=== PATIENT | male | born 1965 | race African-American/Black ===

== ENCOUNTER 2021-09-19 08:13 | Inpatient (IN) | payer MEDICARE ==
[~2021-09-19] VITALS: Ht 172.7 cm; Wt 136.7 kg
[2021-09-19] MEDS ORDERED: ONDANSETRON PF 4 MG/2 ML VIAL. IVP ONE (09:00)
[2021-09-19] MEDS ORDERED: KETOROLAC 15 MG/ML VIAL. IVP ONE (09:00)
--- NOTE | 2021-09-19 09:05 | ED.ADGEN ---
Past Medical History Past Surgical History: Cholecystectomy, Other Additional Past Surgical Histo: ULCER SURG,LOWER INTESTINE REMOVED Smoking Status: Current Every Day Smoker Additional Information: 1 PPD Alcohol Use: Occasionally General Adult EDM: Chief Complaint: ABDOMINAL PAIN HPI: HPI: Patient is a 56 year old male coming in for abdominal pain. Patient states the pain is crampy and comes and goes but starts in his upper abdomen and radiates down both sides. Patient states he has not had a bowel movement for the past 2 days has not been passing flatus. Has had some nausea but no vomiting. Patient feels like the pain was worse this morning and his abdomen is more distended. P hien's last p.o. intake was 4 hours ago when he took mag citrate. Has not had a bowel movement since. Patient has a history of multiple abdominal surgeries but is a poor historian as to what the surgeries were for. Patient states he had some "stones in his intestines" and possible ulcer that required surgical repair. Patient is has HIV, is a type II diabetic and has hypertension Review of Systems: Review of Systems: All other systems within normal limits except for as noted in the HPI Allergies: Allergies: Allergies Coded Allergies Type Severity Reaction Last Updated Verified metformin Allergy Intermediate UNKNOWN 09/19/21 Yes Physical Exam: PE: Constitutional: Well developed, well nourished, no acute distress, non-toxic appearance. [] HENT: Normocephalic, atraumatic, bilateral external ears normal, nose normal. [] Eyes: PERRLA, conjunctiva normal, no discharge. [] Neck: No rigidity, supple, no stridor. [] Cardiovascular: Regular rate and rhythm, brisk cap refill [] Lungs & Thorax: Non labored symmetric respirations, no tachypnea or respiratory distress [] Abdomen: Soft, mildly distended, generalized tenderness without guarding. Large ventral surgical scar intact, no palpable hernias. Skin: Warm, dry, no erythema, no rash. [] Back: Unremarkable Extremities: No deformities, range of motion grossly intact, no lower extremity edema [] Neurologic: Alert and oriented X 3, no focal deficits noted. [] Psychologic: Affect normal, judgement normal, mood normal. [] Current Patient Data: Vital Signs: Vital Signs Date Time Temp Pulse Resp B/P (MAP) Pulse Ox O2 Delivery O2 Flow Rate FiO2 1/23/22 08:16 97.8 68 20 170/105 (126) 95 Room Air 97.8 EKG: EKG: [] Heart Score: C/O Chest Pain: No Risk Factors: Risk Factors: DM, Current or recent (<one month) smoker, HTN, HLP, family history of CAD, obesity. Risk Scores: Score 0 - 3: 2.5% MACE over next 6 weeks - Discharge Home Score 4 - 6: 20.3% MACE over next 6 weeks - Admit for Clinical Observation Score 7 - 10: 72.7% MACE over next 6 weeks - Early Invasive Strategies Radiology/Procedures: Radiology/Procedures: [] Course & Med Decision Making: Course & Med Decision Making Pertinent Labs and Imaging studies reviewed. (See chart for details) [] Dragon Disclaimer: Dragon Disclaimer: This electronic medical record was generated, in whole or in part, using a voice recognition dictation system. Departure Departure Referrals: NO PCP (PCP) KARLOS KHAN MD Sep 19, 2021 09:05
[2021-09-19 09:41] LABS: AMORPHOUS SEDIMENT,UR PRESENT /HPF; BILIRUBIN,URINE SMALL (NEG); CLARITY,URINE TURBID; COLOR,URINE AMBER; NITRITE,URINE NEGATIVE (NEG); PH,URINE 5.5 (<5.0-8.0); PROTEIN,URINE 30 mg/dL (NEG-TRACE)
[2021-09-19 09:50] LABS: BASO # 0.1 x10^3/uL (0.0-0.2); BASO % 1 % (0-3); EOS # 0.2 x10^3/uL (0.0-0.7); EOS % 2 % (0-3); HEMATOCRIT 45.5 % (39.0-53.0); HEMOGLOBIN 14.6 g/dL (13.0-17.5); LYMPH # 2.3 x10^3/uL (1.0-4.8); LYMPH % 21 % (24-48); MEAN CORPUSCULAR HEMOGLOBIN 29 pg (25-35); MEAN CORPUSCULAR HGB CONC 32 g/dL (31-37); MEAN CORPUSCULAR VOLUME 89 fL (79-100); MONO # 0.6 x10^3/uL (0.0-1.1); MONO % 6 % (0-9); NEUT # 7.7 x10^3/uL (1.8-7.7); NEUT % 71 % (31-73); PLATELET COUNT 366 x10^3/uL (140-400); WHITE BLOOD COUNT 10.9 x10^3/uL (4.0-11.0)
[2021-09-19 09:55] LABS: GRANULAR CASTS,URINE OCCASIONAL /HPF; HYALINE CASTS, URINE OCCASIONAL /HPF
[2021-09-19 09:56] LABS: BACTERIA,URINE 0 /HPF (0-FEW); WBC,URINE OCC /HPF (0-4)
[2021-09-19 09:59] LABS: CALCIUM 8.4 mg/dL (8.5-10.1); CREATININE 0.9 mg/dL (0.7-1.3); GFR 104.9; POTASSIUM 3.8 mmol/L (3.5-5.1)
[2021-09-19 10:04] LABS: ALBUMIN 3.4 g/dL (3.4-5.0); MAGNESIUM 2.8 mg/dL (1.8-2.4); PHOSPHORUS 3.6 mg/dL (2.6-4.7); TOTAL BILIRUBIN 0.7 mg/dL (0.2-1.0); TOTAL PROTEIN 6.9 g/dL (6.4-8.2)
[2021-09-19] MEDS ORDERED: CONTRAST GIVEN. MC PRN (10:15)
[2021-09-19] MEDS ORDERED: IOHEXOL 300 MG/ML 100ML VIAL. IV ONE (10:15)
--- NOTE | 2021-09-19 11:07 | RAD ---
CT ABDOMEN+PELVIS W History: Adomen pain x couple of days, distention Comparison: None. Technique: After administration of intravenous contrast, helical CT of the abdomen and pelvis was per formed from the lung bases through the ischial tuberosities. Coronal and sagittal reconstructions wer e obtained. 75 mL of Omnipaque 300 were used. One or more of the following dose reduction techniques were utilized: Automated exposure control (AEC), Adjustment of mA and/or kV according to patient size , Use of iterative reconstruction technique such as ASiR, CT scan done according to ALARA and image g ently/image wisely Abdomen Findings: The visualized lung bases are clear. The liver, gallbladder, pancreas, spleen, and left adrenal gland are normal. Indeterminate right adre nal 2.4 cm lesion. Symmetric renal enhancement. There is no focal renal mass. There is no hydronephrosis. Postsurgical changes at the gastroesophageal junction The visualized loops of small bowel are normal. Focal area of mild colonic wall thickening at the spleen flexure. Colon proximal to this segment is well distended with gas and feculent material. Colon distal to this segment is decompressed. There is no free fluid. There is no mesenteric or retroperitoneal adenopathy. The abdominal aorta is normal in caliber. Pelvis Findings: Urinary bladder is normal. No pelvic free fluid. There is no pelvic or inguinal adenopathy. There is no acute bony abnormality. No aggressive lytic or blastic osseous lesions. IMPRESSION: 1. Focal colonic wall thickening at the splenic flexure, with dilated colon proximal to this segment and decompressed colon distally. It would be difficult to exclude an annular constricting lesion, and direct visualization is recommended. 2. Indeterminate right adrenal 2.4 cm lesion. This could be further characterized with multiphasic ad renal protocol CT or MRI. 3. No abdominal lymphadenopathy. Electronically signed by: Robin Elizondo MD (09/19/2021 11:04 AM) [id number]
[2021-09-19] MEDS ORDERED: IV NORMAL SALINE 1000ML BAG 1,000 ML IV ONE (11:15)
[2021-09-19] MEDS ORDERED: MORPHINE SULFATE 4 MG/ML INJ. IV ONE (11:15)
[2021-09-19 12:23] VITALS: BP 119/56
[2021-09-19] MEDS ORDERED: MORPHINE SULFATE 4 MG/ML INJ. IVP PRN (12:30)
[2021-09-19] MEDS ORDERED: ONDANSETRON PF 4 MG/2 ML VIAL. IVP PRN (12:30)
[2021-09-19] MEDS ORDERED: IV NORMAL SALINE 1000ML BAG 1,000 ML IV SCH (12:30)
--- NOTE | 2021-09-19 18:31 | NUR ---
Pt left AMA, never arrived to the floor
[2021-10-04] MEDS ORDERED: PANT40TA77 PO (12:07)
[2021-10-04] MEDS ORDERED: OXYC1TAB15 PO (12:07)
== END 2021-09-19 18:32 | disposition left against medical advice (07) | DRG 392 ==
LOC: ER 08:13 → 4 NORTH 11:00
PROVIDERS: ADMIT Internal Medicine; ATTEND Internal Medicine
DX: R10.9 Unspecified abdominal pain (principal); E11.9 Type 2 diabetes mellitus without complications; I10 Essential (primary) hypertension; Z21 Asymptomatic human immunodeficiency virus [HIV] infection status; Z87.891 Personal history of nicotine dependence; Z20.822 Contact with and (suspected) exposure to COVID-19; Z88.8 Allergy status to other drugs, medicaments and biological substances; Z53.29 Procedure and treatment not carried out because of patient's decision for other reasons
CPT/HCPCS: 36415; 74177; 80053; 81001; 83605; 83690; 83735; 84100; 85025; 87426; 96361; 96374; 96375; J1885; J2270; J2405; J7030; Q9967; U0003; U0005; 99285-25; G0378

== ENCOUNTER 2021-09-24 17:41 | Inpatient (IN) | payer MEDICARE ==
[~2021-09-24] VITALS: Ht 175.3 cm; Wt 147.4 kg
--- NOTE | 2021-09-24 18:16 | PHYS DOC ---
Past Medical History Past Medical History: Diabetes-Type I, HIV, Hypertension, P.U.D. Past Surgical History: Cholecystectomy, Other Additional Past Surgical Histo: ULCER SURG,LOWER INTESTINE REMOVED Smoking Status: Current Every Day Smoker Alcohol Use: Occasionally Drug Use: None General Adult EDM: Chief Complaint: ABDOMINAL PAIN HPI: HPI: Patient is a 56-year-old male that presents today with abdominal pain. Patient states he was here on September 19, 2021 and was evaluated for this abdominal pain, he states that he was instructed and advised to be admitted to the hospital for further evaluation of this abdominal pain due to a bowel obstruction, he elected to leave the hospital AGAINST MEDICAL ADVICE, he states that he drove to [place] where he was seen by his primary care doctor's office formerly [facility] and they admitted him to the hospital for 2 days they did an enema he states he did have some results from that enema, he states he drove back down here and he is continuing to have abdominal pain. He states that he did try to give himself an enema today he said he got no results he states he has not had a real bowel movement since the other day when he had his enema. Patient denies chest pain, shortness of air, or fever. Patient states his blood sugars today have been in the 100s to 105 range. Review of Systems: Review of Systems: Constitutional: Denies fever or chills. [] Eyes: Denies change in visual acuity. [] HENT: Denies nasal congestion or sore throat. [] Respiratory: Denies cough or shortness of breath. [] Cardiovascular: Denies chest pain or edema. [] GI: Abdominal pain, nausea, no vomiting, diarrhea denies bloody stools [] : Denies dysuria. [] Musculoskeletal: Denies back pain or joint pain. [] Integument: Denies rash. [] Neurologic: Denies headache, focal weakness or sensory changes. [] Endocrine: Denies polyuria or polydipsia. [] Lymphatic: Denies swollen glands. [] Psychiatric: Denies depression or anxiety. [] Heart Score: C/O Chest Pain: N/A Risk Factors: Risk Factors: DM, Current or recent (<one month) smoker, HTN, HLP, family history of CAD, obesity. Risk Scores: Score 0 - 3: 2.5% MACE over next 6 weeks - Discharge Home Score 4 - 6: 20.3% MACE over next 6 weeks - Admit for Clinical Observation Score 7 - 10: 72.7% MACE over next 6 weeks - Early Invasive Strategies Allergies: Allergies: Allergies Coded Allergies Type Severity Reaction Last Updated Verified metformin Allergy Intermediate UNKNOWN 09/19/21 Yes Physical Exam: PE: Constitutional: Well developed, well nourished, no acute distress, non-toxic appearance. [] HENT: Normocephalic, atraumatic, bilateral external ears normal, oropharynx moist, no oral exudates, nose normal. [] Eyes: PERRLA, EOMI, conjunctiva normal, no discharge. [] Neck: Normal range of motion, no tenderness, supple, no stridor. [] Cardiovascular:Heart rate regular rhythm, no murmur, peripheral pulses 2+ in all four extremities Lungs & Thorax: Bilateral breath sounds diminished breath sounds Abdomen: Abdomen is distended and large, hypoactive bowel sounds noted diffuse abdominal pain, no pulsatile masses noted Skin: Warm, dry, no erythema, no rash. [] Back: No tenderness, no CVA tenderness. [] Extremities: No tenderness, no cyanosis, no clubbing, ROM intact, 1+ edema bilateral lower extreme lower extremities Neurologic: Alert and oriented X 3, normal motor function, normal sensory function, no focal deficits noted. [] Psychologic: Affect normal, judgement normal, mood normal. [] Current Patient Data: Labs: Laboratory Tests Test 09/24/21 17:57 09/24/21 18:34 Urine Collection Type Void Urine Color Yellow Urine Clarity Hazy Urine pH 6.0 Urine Specific [place] >=1.030 Urine Protein 100 mg/dL Urine Glucose (UA) Negative mg/dL Urine Ketones (Stick) Negative mg/dL Urine Blood Moderate Urine Nitrite Negative Urine Bilirubin Small Urine Urobilinogen Dipstick 1.0 mg/dL Urine Leukocyte Esterase Negative Urine RBC 11-20 /HPF Urine WBC 1-4 /HPF Urine Squamous Epithelial Cells Many /LPF Urine Bacteria Few /HPF Urine Mucus Marked /LPF White Blood Count 15.3 x10^3/uL Red Blood Count 5.65 x10^6/uL Hemoglobin 16.2 g/dL Hematocrit 49.8 % Mean Corpuscular Volume 88 fL Mean Corpuscular Hemoglobin 29 pg Mean Corpuscular Hemoglobin Concent 33 g/dL Red Cell Distribution Width 14.4 % Platelet Count 441 x10^3/uL Neutrophils (%) (Auto) 79 % Lymphocytes (%) (Auto) 13 % Monocytes (%) (Auto) 6 % Eosinophils (%) (Auto) 2 % Basophils (%) (Auto) 1 % Neutrophils # (Auto) 12.1 x10^3/uL Lymphocytes # (Auto) 2.0 x10^3/uL Monocytes # (Auto) 0.9 x10^3/uL Eosinophils # (Auto) 0.3 x10^3/uL Basophils # (Auto) 0.1 x10^3/uL Sodium Level 141 mmol/L Potassium Level 4.1 mmol/L Chloride Level 104 mmol/L Carbon Dioxide Level 24 mmol/L Anion Gap 13 Blood Urea Nitrogen 21 mg/dL Creatinine 1.0 mg/dL Estimated GFR (Cockcroft-Gault) 92.9 BUN/Creatinine Ratio 21 Glucose Level 131 mg/dL Lactic Acid Level 1.2 mmol/L Calcium Level 9.5 mg/dL Total Bilirubin 0.8 mg/dL Aspartate Amino Transf (AST/SGOT) 45 U/L Alanine Aminotransferase (ALT/SGPT) 103 U/L Alkaline Phosphatase 125 U/L Total Protein 8.1 g/dL Albumin 4.1 g/dL Albumin/Globulin Ratio 1.0 Current Medications Medications (Trade) Dose Ordered Sig/Edith Route PRN Reason Start Time Stop Time Status Last Admin Dose Admin Sodium Chloride 1,000 ml @ 999 mls/hr 1X ONCE IV 09/24/21 18:45 09/24/21 19:45 09/24/21 19:02 Iohexol (Omnipaque 300 Mg/ml) 100 ml 1X ONCE IV 09/24/21 19:15 09/24/21 19:18 DC Info (CONTRAST GIVEN -- Rx MONITORING) 1 each PRN DAILY PRN MC SEE COMMENTS 09/24/21 19:30 09/26/21 19:29 Metoclopramide HCl (Reglan Vial) 10 mg 1X ONCE IVP 09/24/21 19:30 09/24/21 19:31 UNV Morphine Sulfate (Morphine Sulfate) 4 mg 1X ONCE IVP 09/24/21 19:30 09/24/21 19:31 UNV 09/24/21 19:35 Vital Signs: Vital Signs Date Time Temp Pulse Resp B/P (MAP) Pulse Ox O2 Delivery O2 Flow Rate FiO2 09/24/21 19:35 18 95 Room Air 09/24/21 19:04 98 21 190/78 (115) 92 Room Air 09/24/21 18:35 93 18 173/112 (132) 94 Room Air 09/24/21 17:51 97.9 104 18 173/112 (132) 96 Room Air 97.9 Vital Signs Date Time Temp Pulse Resp B/P (MAP) Pulse Ox O2 Delivery O2 Flow Rate FiO2 09/24/21 17:51 97.9 104 18 173/112 (132) 96 Room Air 97.9 EKG: EKG: [] Radiology/Procedures: Radiology/Procedures: REASON: abdominal pain, OMNI 300 75 ML IV PROCEDURE: CT ABD PELV W/ IV CONTRST ONLY Exam: CT of abdomen and pelvis with contrast INDICATION: Abdominal pain TECHNIQUE: Sequential axial images through the abdomen and pelvis obtained following the administration of 75 mL of Isovue-370 IV contrast. Sagittal and coronal reformatted images were reconstructed from the axial data and reviewed. Exposure: One or more of the following in the visualized dose reduction techniques were utilized for this examination: 1. Automated exposure control 2. Adjustment of the MA and/or KV according to patient size 3. Use of iterative of reconstructive technique Comparisons: 09/19/2021 FINDINGS: Heart size is normal. No pericardial effusion. Strandy opacities the dependent portion lungs likely representing atelectasis. No pleural effusion. Liver, spleen, and pancreas are unremarkable. Gallbladder is partially distended. Stable right adrenal gland nodule. No perinephric inflammation or hydronephrosis. No renal or ureteral calculi are identified. Bladder is partially distended and not well evaluated. Prostate is not enlarged. There is a short segment of wall thickening at the splenic flexure of the colon. The more proximal colon is dilated and fluid-filled. Small bowel is unremarkable. No free intra-abdominal air or fluid. Abdominal aorta has a normal course and caliber. Abdominal vasculature is patent. No enlarged intra-abdominal lymph nodes are identified. No suspicious osseous lesions or acute fractures. IMPRESSION: Redemonstration of focal wall thickening at the splenic flexure concerning for an obstructing lesion. There is progressive dilatation of the more proximal colon. As before direct visualization is recommended to exclude/confirm neoplasm. Electronically signed by: Landen Graham MD (09/24/2021 8:01 PM) [facility][] Course & Med Decision Making: Course & Med Decision Making Pertinent Labs and Imaging studies reviewed. (See chart for details) 2014 reviewed radiological and laboratory results with Dr. Pettit did feel this patient does meet criteria for admitting due to the extent of his bowel obstruction and the patient's does have an elevated WBCs, did contact Dr. Kasper he is agreeable to admitting this patient with consult in the a.m. for surgery and gastrointestinal. Did talk to patient about the laboratory and radiological findings he is agreeable to admitting at this time. Patient was informed at this time we do not know what is causing the obstruction there is a mass in his colon and that at this time we do not know what that is and he will need to follow with surgery and GI for further management of this. He verbalizes understanding of this. Dragon Disclaimer: Dragon Disclaimer: This electronic medical record was generated, in whole or in part, using a voice recognition dictation system. Departure Departure Impression: Primary Impression: Bowel obstruction Qualified Codes: K56.609 - Unspecified intestinal obstruction, unspecified as to partial versus complete obstruction Disposition: ADMITTED INPATIENT Admitting Physician: DARRION Condition: STABLE Referrals: ANDRES SHAH MD (PCP) GERSON ARTEAGA APRN Sep 24, 2021 18:16
[2021-09-24 18:26] LABS: BILIRUBIN,URINE SMALL (NEG); CLARITY,URINE HAZY; COLOR,URINE YELLOW
[2021-09-24 18:28] LABS: NITRITE,URINE NEGATIVE (NEG); PROTEIN,URINE 100 mg/dL (NEG-TRACE)
[2021-09-24] MEDS ORDERED: IV NORMAL SALINE 1000ML BAG 1,000 ML IV ONE (18:45)
[2021-09-24 18:47] LABS: BASO # 0.1 x10^3/uL (0.0-0.2); BASO % 1 % (0-3); EOS # 0.3 x10^3/uL (0.0-0.7); EOS % 2 % (0-3); HEMATOCRIT 49.8 % (39.0-53.0); HEMOGLOBIN 16.2 g/dL (13.0-17.5); LYMPH % 13 % (24-48); MEAN CORPUSCULAR HEMOGLOBIN 29 pg (25-35); MEAN CORPUSCULAR HGB CONC 33 g/dL (31-37); MEAN CORPUSCULAR VOLUME 88 fL (79-100); MONO # 0.9 x10^3/uL (0.0-1.1); MONO % 6 % (0-9); NEUT # 12.1 x10^3/uL (1.8-7.7); NEUT % 79 % (31-73); PLATELET COUNT 441 x10^3/uL (140-400); RED BLOOD COUNT 5.65 x10^6/uL (4.30-5.70); RED CELL DISTRIBUTION WIDTH 14.4 % (11.5-14.5); WHITE BLOOD COUNT 15.3 x10^3/uL (4.0-11.0)
[2021-09-24 18:47] LABS: BACTERIA,URINE FEW /HPF (0-FEW)
[2021-09-24 19:00] LABS: CALCIUM 9.5 mg/dL (8.5-10.1); GFR 92.9; POTASSIUM 4.1 mmol/L (3.5-5.1)
[2021-09-24 19:14] LABS: ALBUMIN 4.1 g/dL (3.4-5.0); TOTAL BILIRUBIN 0.8 mg/dL (0.2-1.0); TOTAL PROTEIN 8.1 g/dL (6.4-8.2)
[2021-09-24] MEDS ORDERED: IOHEXOL 300 MG/ML 100ML VIAL. IV ONE (19:15)
--- NOTE | 2021-09-24 19:24 | RAD ---
Exam: Abdomen one view INDICATION: Abdominal pain TECHNIQUE: Supine view the abdomen Comparisons: CT 09/19/2021 FINDINGS: Air and stool are noted throughout the colon to level the rectum in a nonobstructive bowel gas patter n. No suspicious masses or calcifications. Visual is osseous structures are unremarkable. IMPRESSION: Nonobstructive bowel gas pattern. Electronically signed by: Landen Graham MD (09/24/2021 7:22 PM) SARAH
[2021-09-24] MEDS ORDERED: CONTRAST GIVEN. MC PRN (19:30)
[2021-09-24] MEDS ORDERED: METOCLOPRAMIDE HCL 10 MG/2 ML VIAL. IVP ONE (19:30)
[2021-09-24] MEDS ORDERED: MORPHINE SULFATE 4 MG/ML INJ. IVP ONE (19:30)
--- NOTE | 2021-09-24 20:03 | RAD ---
Exam: CT of abdomen and pelvis with contrast INDICATION: Abdominal pain TECHNIQUE: Sequential axial images through the abdomen and pelvis obtained following the administrati on of 75 mL of Isovue-370 IV contrast. Sagittal and coronal reformatted images were reconstructed fro m the axial data and reviewed. Exposure: One or more of the following in the visualized dose reduction techniques were utilized for this examination: 1. Automated exposure control 2. Adjustment of the MA and/or KV according to patient size 3. Use of iterative of reconstructive technique Comparisons: 09/19/2021 FINDINGS: Heart size is normal. No pericardial effusion. Strandy opacities the dependent portion lungs likely r epresenting atelectasis. No pleural effusion. Liver, spleen, and pancreas are unremarkable. Gallbladder is partially distended. Stable right adrena l gland nodule. No perinephric inflammation or hydronephrosis. No renal or ureteral calculi are identified. Bladder is partially distended and not well evaluated. Prostate is not enlarged. There is a short segment of wall thickening at the splenic flexure of the colon. The more proximal co norm is dilated and fluid-filled. Small bowel is unremarkable. No free intra-abdominal air or fluid. Abdominal aorta has a normal course and caliber. Abdominal vasculature is patent. No enlarged intra-abdominal lymph nodes are identified. No suspicious osseous lesions or acute fractures. IMPRESSION: Redemonstration of focal wall thickening at the splenic flexure concerning for an obstructing lesion. There is progressive dilatation of the more proximal colon. As before direct visualization is recomm ended to exclude/confirm neoplasm. Electronically signed by: Landen Graham MD (09/24/2021 8:01 PM) JP
[2021-09-24] MEDS ORDERED: cefTRIAXone IV Push 1 GM VIAL. IVP ONE (20:30)
[2021-09-24] MEDS ORDERED: ONDANSETRON PF 4 MG/2 ML VIAL. IVP PRN (20:30)
[2021-09-24] MEDS: IV NORMAL SALINE 1000ML BAG 1,000 ML IV SCH (22:02)
[2021-09-24] MEDS: MORPHINE SULFATE 4 MG/ML INJ. IVP PRN (22:05)
[2021-09-24 22:30] VITALS: BP 114/63
[2021-09-24 22:37] LABS: INFLUENZA A PATIENT NEGATIVE (NEGATIVE); INFLUENZA B PATIENT NEGATIVE (NEGATIVE)
[2021-09-25] MEDS ORDERED: DARU1TAB3 PO (02:44)
[2021-09-25] MEDS ORDERED: ATOR10TA60 PO (02:44)
[2021-09-25] MEDS ORDERED: LISI10TA16 PO (02:45)
[2021-09-25 03:00] VITALS: BP 147/78
[2021-09-25 07:00] VITALS: BP 126/53
[2021-09-25] MEDS: IV NORMAL SALINE 1000ML BAG 1,000 ML IV SCH ×2 (09:11→16:30)
--- NOTE | 2021-09-25 10:11 | PDOC2 ---
CONSULT Date of Consult Date of Consult DATE: 09/25/21 TIME: 10:06 Reason for Consult Reason for Consult: Partial colonic obstruction with abnormal CT scan concerning for possible splenic flexure mass Referring Physician Referring Physician: Majo Identification/Chief Complaint Chief Complaint Unable to have bowel movement Source Source: Chart review, Patient History of Present Illness Reason for Visit: 56-year-old male morbidly obese initially seen in the emergency department here [place] in September 19 left AMA to return to his primary care doctor in [place] where he received enemas for presumed constipation no further evaluation was performed at that time he returns now after having returned from [place] with continued abdominal crampy pain with inability to have bowel movement. Further evaluation emergency department a CT scan was performed which shows some thickening of the colon and the splenic flexure area concerning for neoplasm. Patient states the only time he has any bowel movement is if he has an enema. He states he had a colonoscopy done over 20 years ago. Past Medical History Cardiovascular: No pertinent hx Pulmonary: No pertinent hx GI: Peptic Ulcer disease Heme/Onc: No pertinent hx Hepatobiliary: No pertinent hx Psych: No pertinent hx Rheumatologic: No pertinent hx Infectious disease: HIV ENT: No pertinent hx Renal/: No pertinent hx Endocrine: Diabetes Dermatology: No pertinent hx Past Surgical History Past Surgical History: Cholecystectomy, Other (Some type of intestinal surgery for ulcer disease) Family History Family History: No Significant Social History 1 pack per day ALCOHOL: occassional Drugs: None Lives: Alone Current Problem List Problem List Problems Medical Problems: (1) Bowel obstruction Status: Acute Current Medications Current Medications Current Medications Sodium Chloride 1,000 ml @ 999 mls/hr 1X ONCE IV Last administered on 09/24/21at 19:02; Start 09/24/21 at 18:45; Stop 09/24/21 at 19:45; Status DC Iohexol (Omnipaque 300 Mg/ml) 100 ml 1X ONCE IV Last administered on 09/24/21at 19:40; Start 09/24/21 at 19:15; Stop 09/24/21 at 19:18; Status DC Info (CONTRAST GIVEN -- Rx MONITORING) 1 each PRN DAILY PRN MC SEE COMMENTS; Start 09/24/21 at 19:30; Stop 09/26/21 at 19:29 Metoclopramide HCl (Reglan Vial) 10 mg 1X ONCE IVP Last administered on 09/24/21at 21:53; Start 09/24/21 at 19:30; Stop 09/24/21 at 19:41; Status DC Morphine Sulfate (Morphine Sulfate) 4 mg 1X ONCE IVP Last administered on 09/24/21at 19:35; Start 09/24/21 at 19:30; Stop 09/24/21 at 19:41; Status DC Ondansetron HCl (Zofran) 4 mg PRN Q8HRS PRN IVP NAUSEA/VOMITING; Start 09/24/21 at 20:30; Stop 09/25/21 at 20:29 Morphine Sulfate (Morphine Sulfate) 4 mg PRN Q2HR PRN IVP PAIN Last administered on 09/24/21at 22:05; Start 09/24/21 at 20:30; Stop 09/25/21 at 20:29 Sodium Chloride 1,000 ml @ 100 mls/hr Q10H IV Last administered on 09/25/21at 09:11; Start 09/24/21 at 20:30; Stop 09/25/21 at 20:29 Ceftriaxone Sodium (Rocephin) 1 gm 1X ONCE IVP Last administered on 09/24/21at 21:56; Start 09/24/21 at 20:30; Stop 09/24/21 at 20:33; Status DC Active Scripts Active Reported Lisinopril 10 Mg Tablet 1 Tab PO DAILY Atorvastatin Calcium 10 Mg Tablet 10 Mg PO HS Symtuza 199-219-267-10 mg Tab (Darunavir/Cob/Emtri/Tenof Alaf) 1 Each Tablet 1 Each PO DAILY Allergies Allergies: Coded Allergies: metformin (Verified Allergy, Intermediate, 09/25/21) ROS Gastrointestinal: Yes Abdominal Pain, Yes Constipation Physical Exam General: Alert, Oriented X3, Cooperative, No acute distress, Other (Morbidly obese) HEENT: Atraumatic, EOMI Lungs: Clear to auscultation, Normal air movement Heart: Regular rate, No murmurs Abdomen: Normal bowel sounds, Soft, Other (Mildly distended no real tenderness) Extremities: No edema Skin: No significant lesion Neuro: Normal speech Psych/Mental Status: Mental status NL Vitals VITALS Vital Signs Date Time Temp Pulse Resp B/P (MAP) Pulse Ox O2 Delivery O2 Flow Rate FiO2 09/25/21 08:00 Nasal Cannula 2.0 09/25/21 07:00 98.2 58 16 126/53 (77) 99 98.2 Labs Labs Laboratory Tests Test 09/24/21 17:57 09/24/21 18:34 09/24/21 22:09 Urine Collection Type Void Urine Color Yellow Urine Clarity Hazy Urine pH 6.0 (<5.0-8.0) Urine Specific [place] >=1.030 (1.000-1.030) Urine Protein 100 mg/dL (NEG-TRACE) Urine Glucose (UA) Negative mg/dL (NEG) Urine Ketones (Stick) Negative mg/dL (NEG) Urine Blood Moderate (NEG) Urine Nitrite Negative (NEG) Urine Bilirubin Small (NEG) Urine Urobilinogen Dipstick 1.0 mg/dL (0.2 mg/dL) Urine Leukocyte Esterase Negative (NEG) Urine RBC 11-20 /HPF (0-2) Urine WBC 1-4 /HPF (0-4) Urine Squamous Epithelial Cells Many /LPF Urine Bacteria Few /HPF (0-FEW) Urine Mucus Marked /LPF White Blood Count 15.3 x10^3/uL (4.0-11.0) Red Blood Count 5.65 x10^6/uL (4.30-5.70) Hemoglobin 16.2 g/dL (13.0-17.5) Hematocrit 49.8 % (39.0-53.0) Mean Corpuscular Volume 88 fL (79-100) Mean Corpuscular Hemoglobin 29 pg (25-35) Mean Corpuscular Hemoglobin Concent 33 g/dL (31-37) Red Cell Distribution Width 14.4 % (11.5-14.5) Platelet Count 441 x10^3/uL (140-400) Neutrophils (%) (Auto) 79 % (31-73) Lymphocytes (%) (Auto) 13 % (24-48) Monocytes (%) (Auto) 6 % (0-9) Eosinophils (%) (Auto) 2 % (0-3) Basophils (%) (Auto) 1 % (0-3) Neutrophils # (Auto) 12.1 x10^3/uL (1.8-7.7) Lymphocytes # (Auto) 2.0 x10^3/uL (1.0-4.8) Monocytes # (Auto) 0.9 x10^3/uL (0.0-1.1) Eosinophils # (Auto) 0.3 x10^3/uL (0.0-0.7) Basophils # (Auto) 0.1 x10^3/uL (0.0-0.2) Sodium Level 141 mmol/L (136-145) Potassium Level 4.1 mmol/L (3.5-5.1) Chloride Level 104 mmol/L (98-107) Carbon Dioxide Level 24 mmol/L (21-32) Anion Gap 13 (6-14) Blood Urea Nitrogen 21 mg/dL (8-26) Creatinine 1.0 mg/dL (0.7-1.3) Estimated GFR (Cockcroft-Gault) 92.9 BUN/Creatinine Ratio 21 (6-20) Glucose Level 131 mg/dL (70-99) Lactic Acid Level 1.2 mmol/L (0.4-2.0) Calcium Level 9.5 mg/dL (8.5-10.1) Total Bilirubin 0.8 mg/dL (0.2-1.0) Aspartate Amino Transf (AST/SGOT) 45 U/L (15-37) Alanine Aminotransferase (ALT/SGPT) 103 U/L (16-63) Alkaline Phosphatase 125 U/L (46-116) Total Protein 8.1 g/dL (6.4-8.2) Albumin 4.1 g/dL (3.4-5.0) Albumin/Globulin Ratio 1.0 (1.0-1.7) Influenza Type A Antigen Negative (NEGATIVE) Influenza Type B Antigen Negative (NEGATIVE) SARS-CoV-2 Antigen (Rapid) Negative (NEGATIVE) Laboratory Tests Test 09/24/21 17:57 09/24/21 18:34 09/24/21 22:09 Urine Collection Type Void Urine Color Yellow Urine Clarity Hazy Urine pH 6.0 (<5.0-8.0) Urine Specific [place] >=1.030 (1.000-1.030) Urine Protein 100 mg/dL (NEG-TRACE) Urine Glucose (UA) Negative mg/dL (NEG) Urine Ketones (Stick) Negative mg/dL (NEG) Urine Blood Moderate (NEG) Urine Nitrite Negative (NEG) Urine Bilirubin Small (NEG) Urine Urobilinogen Dipstick 1.0 mg/dL (0.2 mg/dL) Urine Leukocyte Esterase Negative (NEG) Urine RBC 11-20 /HPF (0-2) Urine WBC 1-4 /HPF (0-4) Urine Squamous Epithelial Cells Many /LPF Urine Bacteria Few /HPF (0-FEW) Urine Mucus Marked /LPF White Blood Count 15.3 x10^3/uL (4.0-11.0) Red Blood Count 5.65 x10^6/uL (4.30-5.70) Hemoglobin 16.2 g/dL (13.0-17.5) Hematocrit 49.8 % (39.0-53.0) Mean Corpuscular Volume 88 fL (79-100) Mean Corpuscular Hemoglobin 29 pg (25-35) Mean Corpuscular Hemoglobin Concent 33 g/dL (31-37) Red Cell Distribution Width 14.4 % (11.5-14.5) Platelet Count 441 x10^3/uL (140-400) Neutrophils (%) (Auto) 79 % (31-73) Lymphocytes (%) (Auto) 13 % (24-48) Monocytes (%) (Auto) 6 % (0-9) Eosinophils (%) (Auto) 2 % (0-3) Basophils (%) (Auto) 1 % (0-3) Neutrophils # (Auto) 12.1 x10^3/uL (1.8-7.7) Lymphocytes # (Auto) 2.0 x10^3/uL (1.0-4.8) Monocytes # (Auto) 0.9 x10^3/uL (0.0-1.1) Eosinophils # (Auto) 0.3 x10^3/uL (0.0-0.7) Basophils # (Auto) 0.1 x10^3/uL (0.0-0.2) Sodium Level 141 mmol/L (136-145) Potassium Level 4.1 mmol/L (3.5-5.1) Chloride Level 104 mmol/L (98-107) Carbon Dioxide Level 24 mmol/L (21-32) Anion Gap 13 (6-14) Blood Urea Nitrogen 21 mg/dL (8-26) Creatinine 1.0 mg/dL (0.7-1.3) Estimated GFR (Cockcroft-Gault) 92.9 BUN/Creatinine Ratio 21 (6-20) Glucose Level 131 mg/dL (70-99) Lactic Acid Level 1.2 mmol/L (0.4-2.0) Calcium Level 9.5 mg/dL (8.5-10.1) Total Bilirubin 0.8 mg/dL (0.2-1.0) Aspartate Amino Transf (AST/SGOT) 45 U/L (15-37) Alanine Aminotransferase (ALT/SGPT) 103 U/L (16-63) Alkaline Phosphatase 125 U/L (46-116) Total Protein 8.1 g/dL (6.4-8.2) Albumin 4.1 g/dL (3.4-5.0) Albumin/Globulin Ratio 1.0 (1.0-1.7) Influenza Type A Antigen Negative (NEGATIVE) Influenza Type B Antigen Negative (NEGATIVE) SARS-CoV-2 Antigen (Rapid) Negative (NEGATIVE) Assessment/Plan Assessment/Plan Constipation versus colonic obstruction due to neoplasm splenic flexure. GI consulted for possible colonoscopy for further evaluation we will follow up on result CATARINA GUZMAN MD Sep 25, 2021 10:11
[2021-09-25 11:00] VITALS: BP 124/62
[2021-09-25] MEDS: MORPHINE SULFATE 4 MG/ML INJ. IVP PRN ×3 (11:09→20:04)
--- NOTE | 2021-09-25 12:20 | PDOC2 ---
GI CONSULT Date of Service: DATE: 09/25/21 TIME: 12:03 Reason For Consult: Stooling issues/abnormal CT. HPI: HPI: 56 y/o male with 1-2 week h/o stooling issues--seen in ER twice for lack of stool. Says OK before. Usually regular w/o bleeding, etc. On CT, question of short-segment narrowing at splenic flexure with dilated colon above. Says currently passing "a lot" of liquid. Has had normal colonoscopy in the remote past, >10 years ago. Wt/appetite OK. No N,V. GIFH negative. Denies heartburn nor dysphagia. Claims "ulcer" at age 14-15 in [place]; underwent surgical procedure for this, nature unclear (but has upper midline scar). No GB, liver or pancreatic history. Smokes. Rare alcohol. Is HIV positive, on HAART. PMH: PMH: HTN, DM2, HIV. Surgery as above. FH: Family History: Other (negative for GI issues) Social History: Smoke: 1 pack per day ALCOHOL: occassional Drugs: None ROS: GEN: Denies fevers, chills, sweats HEENT: Denies blurred vision, sore throat CV: Denies chest pain RESP: Denies shortness of air, cough GI: Per HPI : Denies hematuria, dysuria ENDO: Denies weight changes NEURO: Denies confusion, dizziness MSK: Denies weakness, joint pain/swelling SKIN: Denies jaundice, pruritus Vitals: Vitals: Vital Signs Date Time Temp Pulse Resp B/P (MAP) Pulse Ox O2 Delivery O2 Flow Rate FiO2 09/25/21 11:09 Room Air 09/25/21 08:00 2.0 09/25/21 07:00 98.2 58 16 126/53 (77) 99 98.2 Labs: Labs: Laboratory Tests Test 09/24/21 17:57 09/24/21 18:34 09/24/21 22:09 Urine Collection Type Void Urine Color Yellow Urine Clarity Hazy Urine pH 6.0 (<5.0-8.0) Urine Specific [place] >=1.030 (1.000-1.030) Urine Protein 100 mg/dL (NEG-TRACE) Urine Glucose (UA) Negative mg/dL (NEG) Urine Ketones (Stick) Negative mg/dL (NEG) Urine Blood Moderate (NEG) Urine Nitrite Negative (NEG) Urine Bilirubin Small (NEG) Urine Urobilinogen Dipstick 1.0 mg/dL (0.2 mg/dL) Urine Leukocyte Esterase Negative (NEG) Urine RBC 11-20 /HPF (0-2) Urine WBC 1-4 /HPF (0-4) Urine Squamous Epithelial Cells Many /LPF Urine Bacteria Few /HPF (0-FEW) Urine Mucus Marked /LPF White Blood Count 15.3 x10^3/uL (4.0-11.0) Red Blood Count 5.65 x10^6/uL (4.30-5.70) Hemoglobin 16.2 g/dL (13.0-17.5) Hematocrit 49.8 % (39.0-53.0) Mean Corpuscular Volume 88 fL (79-100) Mean Corpuscular Hemoglobin 29 pg (25-35) Mean Corpuscular Hemoglobin Concent 33 g/dL (31-37) Red Cell Distribution Width 14.4 % (11.5-14.5) Platelet Count 441 x10^3/uL (140-400) Neutrophils (%) (Auto) 79 % (31-73) Lymphocytes (%) (Auto) 13 % (24-48) Monocytes (%) (Auto) 6 % (0-9) Eosinophils (%) (Auto) 2 % (0-3) Basophils (%) (Auto) 1 % (0-3) Neutrophils # (Auto) 12.1 x10^3/uL (1.8-7.7) Lymphocytes # (Auto) 2.0 x10^3/uL (1.0-4.8) Monocytes # (Auto) 0.9 x10^3/uL (0.0-1.1) Eosinophils # (Auto) 0.3 x10^3/uL (0.0-0.7) Basophils # (Auto) 0.1 x10^3/uL (0.0-0.2) Sodium Level 141 mmol/L (136-145) Potassium Level 4.1 mmol/L (3.5-5.1) Chloride Level 104 mmol/L (98-107) Carbon Dioxide Level 24 mmol/L (21-32) Anion Gap 13 (6-14) Blood Urea Nitrogen 21 mg/dL (8-26) Creatinine 1.0 mg/dL (0.7-1.3) Estimated GFR (Cockcroft-Gault) 92.9 BUN/Creatinine Ratio 21 (6-20) Glucose Level 131 mg/dL (70-99) Lactic Acid Level 1.2 mmol/L (0.4-2.0) Calcium Level 9.5 mg/dL (8.5-10.1) Total Bilirubin 0.8 mg/dL (0.2-1.0) Aspartate Amino Transf (AST/SGOT) 45 U/L (15-37) Alanine Aminotransferase (ALT/SGPT) 103 U/L (16-63) Alkaline Phosphatase 125 U/L (46-116) Total Protein 8.1 g/dL (6.4-8.2) Albumin 4.1 g/dL (3.4-5.0) Albumin/Globulin Ratio 1.0 (1.0-1.7) Influenza Type A Antigen Negative (NEGATIVE) Influenza Type B Antigen Negative (NEGATIVE) SARS-CoV-2 RNA (BELLO) Negative (Negative) SARS-CoV-2 Antigen (Rapid) Negative (NEGATIVE) Allergies: Coded Allergies: metformin (Verified Allergy, Intermediate, 09/25/21) Medications: Current Medications Medications (Trade) Dose Ordered Sig/Edith Route PRN Reason Start Time Stop Time Status Last Admin Dose Admin Sodium Chloride 1,000 ml @ 999 mls/hr 1X ONCE IV 09/24/21 18:45 09/24/21 19:45 DC 09/24/21 19:02 Iohexol (Omnipaque 300 Mg/ml) 100 ml 1X ONCE IV 09/24/21 19:15 09/24/21 19:18 DC 09/24/21 19:40 Metoclopramide HCl (Reglan Vial) 10 mg 1X ONCE IVP 09/24/21 19:30 09/24/21 19:41 DC 09/24/21 21:53 Morphine Sulfate (Morphine Sulfate) 4 mg 1X ONCE IVP 09/24/21 19:30 09/24/21 19:41 DC 09/24/21 19:35 Morphine Sulfate (Morphine Sulfate) 4 mg PRN Q2HR PRN IVP PAIN 09/24/21 20:30 09/25/21 20:29 09/25/21 11:09 Sodium Chloride 1,000 ml @ 100 mls/hr Q10H IV 09/24/21 20:30 09/25/21 20:29 09/25/21 09:11 Ceftriaxone Sodium (Rocephin) 1 gm 1X ONCE IVP 09/24/21 20:30 09/24/21 20:33 DC 09/24/21 21:56 Imaging: Imaging: CT. KUB reviewed. PE: GEN: NAD HEENT: Atraumatic, PERRLA LUNGS: CTAB HEART: RRR, no murmurs ABD: NABS, S/ND/NT, no masses, soft, obese, healed upper midline scar. EXTREMITY: No edema SKIN: No rashes, no jaundice NEURO/PSYCH: A & O 3 A/P: A/P: Apparent colonic obstruction, mass? CBC not typical for usual adenoCa presentation w/o anemia or signs of iron deficiency, though adenoCa possible. Given HIV, unusual tumors such as Kaposi's in the differential though normal lymphocyte count suggests immune-reconstituted. H/o "ulcer", s/p operation related to this. Would continue ice chips only po and observe. If continues to pass liquid stools, may hazard gentle prep/colonoscopy. Will check CEA, elevated level would suggest possible malignancy. Other pending. Thanks. GIUSEPPE SILVERMAN MD Sep 25, 2021 12:20
[2021-09-25 15:00] VITALS: BP 127/71
[2021-09-25 19:00] VITALS: BP 132/81
[2021-09-25 23:00] VITALS: BP 142/67
[2021-09-26 03:00] VITALS: BP 152/73
[2021-09-26 07:00] VITALS: BP 140/66
--- NOTE | 2021-09-26 08:05 | HP ---
DATE OF SERVICE: 09/25/2021 ADMIT DATE: 09/24/2021 CHIEF COMPLAINT: Bowel obstruction. HISTORY OF PRESENT ILLNESS: The patient is a pleasant 56-year-old male who presented to the ER with abdominal pain, was noted to have a bowel obstruction. Apparently, he left against medical advice from another facility in [place]. He apparently just moved here. He was trying to start a new job and just thought he could go back to work, but now his symptoms have worsened. I discussed the case with the ER physician. We have admitted the patient. We consulted Dr. Khan. Dr. Khan has taken the patient to surgery this afternoon. PAST MEDICAL HISTORY: Overweight, HIV, diabetes, hypertension, PUD, cholecystectomy, ulcer surgery, lower intestine surgery, tobacco abuse. ALLERGIES: METFORMIN. FAMILY HISTORY: Diabetes. SOCIAL HISTORY: He smokes. No drinking, no drugs. He is starting a new job. He just moved from ____ here. MEDICATIONS: Reviewed. Please refer to the MRAD. REVIEW OF SYSTEMS: GENERAL: No history of weight change, weakness or fevers. SKIN: No bruising, hair changes or rashes. EYES: No blurred, double or loss of vision. NOSE AND THROAT: No history of nosebleeds, hoarseness or sore throat. HEART: No history of palpitations, chest pain or shortness of breath on exertion. LUNGS: Denies cough, hemoptysis, wheezing or shortness of breath. GASTROINTESTINAL: He complains of abdominal pain. GENITOURINARY: No history of frequency, urgency, hesitancy or nocturia. NEUROLOGIC: Denies history of numbness, tingling, tremor or weakness. PSYCHIATRIC: No history of panic, anxiety or depression. ENDOCRINE: No history of heat or cold intolerance, polyuria or polydipsia. EXTREMITIES: Denies muscle weakness, joint pain, pain on walking or stiffness. PHYSICAL EXAMINATION: VITALS: Within normal limits and are stable. GENERAL: No apparent distress. Alert and oriented. HEENT: Normal cephalic atraumatic, external auditory canals are patent. Eyes: Extraocular muscles are intact, pupils are equally round and reactive to light and accommodation. MUSCULOSKELETAL: Well developed, well nourished, good range of motion. ENDOCRINE: No thyromegaly was palpated. LYMPHATICS: No cervical chain or axillary nodes were noted. HEMATOPOIETIC: No bruising. NECK: Supple, no JVD, no thyromegaly was noted. LUNGS: Clear to auscultation in all lung hernandez without rhonchi or wheezing. HEART: RRR, S1, S2 present. Peripheral pulses intact, no obvious murmurs were noted. ABDOMEN: His abdomen is distended. There is some old incisions that have healed. Decreased bowel sounds. Tender. EXTREMITIES: Without any cyanosis, clubbing, or edema. Pedal pulses intact, Homans sign is negative. NEUROLOGIC: Normal speech, normal tone. A and O x 3, moves all extremities, no obvious focal deficits. PSYCHIATRIC: Normal affect, normal mood. Stable. SKIN: No ulcerations or rashes, good skin turgor, no jaundice. VASCULAR: Good capillary refill, neurovascular bundle appears to be intact. LABORATORY DATA: White count 15. ASSESSMENT AND PLAN: Bowel obstruction. The patient has been admitted. We have consulted Dr. Khan. The patient is going to surgery today. For now, IV fluids, p.r.n. Zofran. Deep venous thrombosis prophylaxis. DANII/COOPER/SAM DR: Kofi TID: [id number]
--- NOTE | 2021-09-26 09:53 | PDOC ---
SURGICAL PROGRESS NOTE DATE: 09/26/21 TIME: 09:51 Subjective Patient states he is feeling well would like to have something to drink or eat. Denies having passed stool Vital Signs Vital Signs Date Time Temp Pulse Resp B/P (MAP) Pulse Ox O2 Delivery O2 Flow Rate FiO2 09/26/21 04:00 99 BiPAP/CPAP 09/26/21 03:00 98.4 54 22 152/73 (99) 98.4 09/25/21 19:55 2.0 I&O Intake and Output 09/26/21 07:00 Intake Total 1000 ml Balance 1000 ml Intake IV Total 1000 ml # Voids 8 # Bowel Movements 1 PATIENT HAS A ESPINOSA: No General: Alert, Oriented X3, Cooperative, No acute distress Abdomen: Normal bowel sounds, Soft, Other (Mildly distended) Labs Laboratory Tests Test 09/24/21 17:57 09/24/21 18:34 09/24/21 22:09 Urine Collection Type Void Urine Color Yellow Urine Clarity Hazy Urine pH 6.0 (<5.0-8.0) Urine Specific [place] >=1.030 (1.000-1.030) Urine Protein 100 mg/dL (NEG-TRACE) Urine Glucose (UA) Negative mg/dL (NEG) Urine Ketones (Stick) Negative mg/dL (NEG) Urine Blood Moderate (NEG) Urine Nitrite Negative (NEG) Urine Bilirubin Small (NEG) Urine Urobilinogen Dipstick 1.0 mg/dL (0.2 mg/dL) Urine Leukocyte Esterase Negative (NEG) Urine RBC 11-20 /HPF (0-2) Urine WBC 1-4 /HPF (0-4) Urine Squamous Epithelial Cells Many /LPF Urine Bacteria Few /HPF (0-FEW) Urine Mucus Marked /LPF White Blood Count 15.3 x10^3/uL (4.0-11.0) Red Blood Count 5.65 x10^6/uL (4.30-5.70) Hemoglobin 16.2 g/dL (13.0-17.5) Hematocrit 49.8 % (39.0-53.0) Mean Corpuscular Volume 88 fL (79-100) Mean Corpuscular Hemoglobin 29 pg (25-35) Mean Corpuscular Hemoglobin Concent 33 g/dL (31-37) Red Cell Distribution Width 14.4 % (11.5-14.5) Platelet Count 441 x10^3/uL (140-400) Neutrophils (%) (Auto) 79 % (31-73) Lymphocytes (%) (Auto) 13 % (24-48) Monocytes (%) (Auto) 6 % (0-9) Eosinophils (%) (Auto) 2 % (0-3) Basophils (%) (Auto) 1 % (0-3) Neutrophils # (Auto) 12.1 x10^3/uL (1.8-7.7) Lymphocytes # (Auto) 2.0 x10^3/uL (1.0-4.8) Monocytes # (Auto) 0.9 x10^3/uL (0.0-1.1) Eosinophils # (Auto) 0.3 x10^3/uL (0.0-0.7) Basophils # (Auto) 0.1 x10^3/uL (0.0-0.2) Sodium Level 141 mmol/L (136-145) Potassium Level 4.1 mmol/L (3.5-5.1) Chloride Level 104 mmol/L (98-107) Carbon Dioxide Level 24 mmol/L (21-32) Anion Gap 13 (6-14) Blood Urea Nitrogen 21 mg/dL (8-26) Creatinine 1.0 mg/dL (0.7-1.3) Estimated GFR (Cockcroft-Gault) 92.9 BUN/Creatinine Ratio 21 (6-20) Glucose Level 131 mg/dL (70-99) Lactic Acid Level 1.2 mmol/L (0.4-2.0) Calcium Level 9.5 mg/dL (8.5-10.1) Total Bilirubin 0.8 mg/dL (0.2-1.0) Aspartate Amino Transf (AST/SGOT) 45 U/L (15-37) Alanine Aminotransferase (ALT/SGPT) 103 U/L (16-63) Alkaline Phosphatase 125 U/L (46-116) Total Protein 8.1 g/dL (6.4-8.2) Albumin 4.1 g/dL (3.4-5.0) Albumin/Globulin Ratio 1.0 (1.0-1.7) Influenza Type A Antigen Negative (NEGATIVE) Influenza Type B Antigen Negative (NEGATIVE) SARS-CoV-2 RNA (BELLO) Negative (Negative) SARS-CoV-2 Antigen (Rapid) Negative (NEGATIVE) Problem List Problems Medical Problems: (1) Bowel obstruction Status: Acute Assessment/Plan GI consult noted. Will await further testing and evaluation from GI Justicifation of Admission Dx: Justifications for Admission: Justification of Admission Dx: N/A CATARINA GUZMAN MD Sep 26, 2021 09:53
[2021-09-26 11:00] VITALS: BP 153/93
[2021-09-26] MEDS: IV NORMAL SALINE 1000ML BAG 1,000 ML IV SCH (11:30)
--- NOTE | 2021-09-26 11:35 | PDOC ---
[facility] PROGRESS NOTE Date of Service DOS: DATE: 09/26/21 TIME: 11:33 Chief Complaint Chief Complaint Bowel obstruction Overweight, HIV, diabetes, hypertension, PUD, cholecystectomy, ulcer surgery, lower intestine surgery, tobacco abuse. History of Present Illness History of Present Illness 09/26/21: Patient seen and examined Chart Reviewed Discussed with RN Patient requesting something to eat/drink Patient affirms that he has passed some watery stools, but denies flatus HISTORY OF PRESENT ILLNESS: The patient is a pleasant 56-year-old male who presented to the ER with abdominal pain, was noted to have a bowel obstruction. PAST MEDICAL HISTORY: Overweight, HIV, diabetes, hypertension, PUD, cholecystectomy, ulcer surgery, lower intestine surgery, tobacco abuse. Vitals/I&O Vitals/I&O: Vital Signs Date Time Temp Pulse Resp B/P (MAP) Pulse Ox O2 Delivery O2 Flow Rate FiO2 09/26/21 07:00 97.8 61 18 140/66 (90) 93 BiPAP/CPAP 97.8 09/25/21 19:55 2.0 I & O 09/25/21 09/25/21 09/26/21 15:00 23:00 07:00 Intake Total 1000 ml Balance 1000 ml Physical Exam General: Alert, Oriented X3, Cooperative, No acute distress Heart: Regular rate, No murmurs Abdomen: Normal bowel sounds, Soft, Other (Mildly distended) Extremities: No edema Skin: No significant lesion Assessment and Plan Assessmemt and Plan Problems Medical Problems: (1) Bowel obstruction Status: Acute Assessment: Bowel obstruction Overweight, HIV, diabetes, hypertension, PUD, cholecystectomy, ulcer surgery, lower intestine surgery, tobacco abuse. Plan: Clear liquids for today Then bowel prep Probable colonoscopy tomorrow Home meds DVT prophylaxis Full code Appreciate subspecialist input Comment Review of Relevant I have reviewed the following items mervat (where applicable) has been applied. Justifications for Admission Other Justification DARLINE HOWARD III DO Sep 26, 2021 11:35
--- NOTE | 2021-09-26 11:44 | PDOC ---
G I PROGRESS NOTE Subjective Says passing "muddy water". Would like more than ice chips. Physical Exam Lungs clear anteriorly. RRR Abdomen obese, soft. Some mild LUQ tenderness. Review of Relevant I have reviewed the following items mervat (where applicable) has been applied. Labs Laboratory Tests Test 09/24/21 17:57 09/24/21 18:34 09/24/21 22:09 Urine Collection Type Void Urine Color Yellow Urine Clarity Hazy Urine pH 6.0 (<5.0-8.0) Urine Specific [place] >=1.030 (1.000-1.030) Urine Protein 100 mg/dL (NEG-TRACE) Urine Glucose (UA) Negative mg/dL (NEG) Urine Ketones (Stick) Negative mg/dL (NEG) Urine Blood Moderate (NEG) Urine Nitrite Negative (NEG) Urine Bilirubin Small (NEG) Urine Urobilinogen Dipstick 1.0 mg/dL (0.2 mg/dL) Urine Leukocyte Esterase Negative (NEG) Urine RBC 11-20 /HPF (0-2) Urine WBC 1-4 /HPF (0-4) Urine Squamous Epithelial Cells Many /LPF Urine Bacteria Few /HPF (0-FEW) Urine Mucus Marked /LPF White Blood Count 15.3 x10^3/uL (4.0-11.0) Red Blood Count 5.65 x10^6/uL (4.30-5.70) Hemoglobin 16.2 g/dL (13.0-17.5) Hematocrit 49.8 % (39.0-53.0) Mean Corpuscular Volume 88 fL (79-100) Mean Corpuscular Hemoglobin 29 pg (25-35) Mean Corpuscular Hemoglobin Concent 33 g/dL (31-37) Red Cell Distribution Width 14.4 % (11.5-14.5) Platelet Count 441 x10^3/uL (140-400) Neutrophils (%) (Auto) 79 % (31-73) Lymphocytes (%) (Auto) 13 % (24-48) Monocytes (%) (Auto) 6 % (0-9) Eosinophils (%) (Auto) 2 % (0-3) Basophils (%) (Auto) 1 % (0-3) Neutrophils # (Auto) 12.1 x10^3/uL (1.8-7.7) Lymphocytes # (Auto) 2.0 x10^3/uL (1.0-4.8) Monocytes # (Auto) 0.9 x10^3/uL (0.0-1.1) Eosinophils # (Auto) 0.3 x10^3/uL (0.0-0.7) Basophils # (Auto) 0.1 x10^3/uL (0.0-0.2) Sodium Level 141 mmol/L (136-145) Potassium Level 4.1 mmol/L (3.5-5.1) Chloride Level 104 mmol/L (98-107) Carbon Dioxide Level 24 mmol/L (21-32) Anion Gap 13 (6-14) Blood Urea Nitrogen 21 mg/dL (8-26) Creatinine 1.0 mg/dL (0.7-1.3) Estimated GFR (Cockcroft-Gault) 92.9 BUN/Creatinine Ratio 21 (6-20) Glucose Level 131 mg/dL (70-99) Lactic Acid Level 1.2 mmol/L (0.4-2.0) Calcium Level 9.5 mg/dL (8.5-10.1) Total Bilirubin 0.8 mg/dL (0.2-1.0) Aspartate Amino Transf (AST/SGOT) 45 U/L (15-37) Alanine Aminotransferase (ALT/SGPT) 103 U/L (16-63) Alkaline Phosphatase 125 U/L (46-116) Total Protein 8.1 g/dL (6.4-8.2) Albumin 4.1 g/dL (3.4-5.0) Albumin/Globulin Ratio 1.0 (1.0-1.7) Influenza Type A Antigen Negative (NEGATIVE) Influenza Type B Antigen Negative (NEGATIVE) SARS-CoV-2 RNA (BELLO) Negative (Negative) SARS-CoV-2 Antigen (Rapid) Negative (NEGATIVE) Vitals/I & O Vital Sign - Last 24 Hours 09/25/21 09/25/21 09/25/21 09/25/21 12:00 15:00 17:35 18:10 Temp 98.0 98.0 Pulse 55 Resp 18 B/P (MAP) 127/71 (89) Pulse Ox 95 95 O2 Delivery Nasal Cannula Room Air Nasal Cannula Room Air O2 Flow Rate 2.0 09/25/21 09/25/21 09/25/21 09/25/21 19:00 19:55 20:04 22:30 Temp 98.2 98.2 Pulse 57 Resp 20 B/P (MAP) 132/81 (98) Pulse Ox 92 99 O2 Delivery Room Air Nasal Cannula Room Air BiPAP/CPAP O2 Flow Rate 2.0 09/25/21 09/26/21 09/26/21 09/26/21 23:00 03:00 04:00 07:00 Temp 98.7 98.4 97.8 98.7 98.4 97.8 Pulse 56 54 61 Resp 22 18 B/P (MAP) 142/67 (92) 152/73 (99) 140/66 (90) Pulse Ox 93 94 99 93 O2 Delivery BiPAP/CPAP BiPAP/CPAP BiPAP/CPAP BiPAP/CPAP Intake and Output 09/25/21 09/25/21 09/26/21 15:00 23:00 07:00 Intake Total 1000 ml Balance 1000 ml Problem List Problems Medical Problems: (1) Bowel obstruction Status: Acute Assessment Apparent splenic flexure issues, cause uncertain. Is stooling. Plan of Care Note Will try colonoscopy tomorrow. Other pending. Justicifation of Admission Dx: Justifications for Admission: Justification of Admission Dx: N/A GIUSEPPE SILVERMAN MD Sep 26, 2021 11:44
[2021-09-26] MEDS: POLYETHYLENE GLYCOL 3350 17 GM PACKET. PO SCH ×2 (13:20→21:28)
[2021-09-26] MEDS: MORPHINE SULFATE 4 MG/ML INJ. IV PRN ×2 (14:45→18:30)
[2021-09-26 15:00] VITALS: BP 145/83
[2021-09-26 19:00] VITALS: BP 144/93
[2021-09-26 23:00] VITALS: BP 146/93
[2021-09-27] VITALS (12 sets, daily range): BP systolic 124–186; BP diastolic 59–106
[2021-09-27] MEDS: IV NORMAL SALINE 1000ML BAG 1,000 ML IV SCH ×3 (00:27→13:21)
[2021-09-27] MEDS: MORPHINE SULFATE 4 MG/ML INJ. IV PRN ×6 (00:29→19:58)
[2021-09-27] MEDS: POLYETHYLENE GLYCOL 3350 17 GM PACKET. PO SCH (07:10)
--- NOTE | 2021-09-27 08:45 | PDOC ---
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 09/27/21 0845: SURGICAL PROGRESS NOTE DATE: 09/27/21 TIME: 08:43 Subjective resting bowel prep yesterday no emesis Vital Signs Vital Signs Date Time Temp Pulse Resp B/P (MAP) Pulse Ox O2 Delivery O2 Flow Rate FiO2 09/27/21 08:00 Room Air 09/27/21 07:00 97.9 48 19 143/78 (99) 98 97.9 I&O Intake and Output 09/27/21 07:00 Intake Total 960 ml Balance 960 ml Intake Oral 960 ml # Voids 4 General: Alert, Cooperative Abdomen: Other (mild ttp, distended ) Problem List Problems Medical Problems: (1) Bowel obstruction Status: Acute Assessment/Plan tentative plans for colonoscopy today will fu on results round, chart < 15min Justicifation of Admission Dx: Justifications for Admission: Justification of Admission Dx: N/A CATARINA GUZMAN MD 09/28/21 0826: SURGICAL PROGRESS NOTE Assessment/Plan Agree with Lupe assessment and plan CEZAR ARIAS APRN Sep 27, 2021 08:45 CATARINA GUZMAN MD Sep 28, 2021 08:26
--- NOTE | 2021-09-27 10:54 | NUR ---
SW following. Discussed with RN, pt from home, room air (uses CPAP at night), NPO, COVID-19 negative. Surgery and GI following. Colonoscopy planned for 1400 today. RN advised no SW needs at this time. SW will continue to follow.
--- NOTE | 2021-09-27 11:19 | PDOC ---
[employer] PROGRESS NOTE Date of Service DOS: DATE: 09/27/21 TIME: 11:18 Chief Complaint Chief Complaint Bowel obstruction Overweight, HIV, diabetes, hypertension, PUD, cholecystectomy, ulcer surgery, lower intestine surgery, tobacco abuse. History of Present Illness History of Present Illness 09/27/2021 Plan for colonoscopy today. Patient seen on toilet after enema. Currently receiving bowel prep. Surgery and GI following. No acute events overnight. AF and VSS. Patient's chart, labs, images were reviewed and discussed with RN 09/26/21: Patient seen and examined Chart Reviewed Discussed with RN Patient requesting something to eat/drink Patient affirms that he has passed some watery stools, but denies flatus HISTORY OF PRESENT ILLNESS: The patient is a pleasant 56-year-old male who presented to the ER with abdominal pain, was noted to have a bowel obstruction. PAST MEDICAL HISTORY: Overweight, HIV, diabetes, hypertension, PUD, cholecystectomy, ulcer surgery, lower intestine surgery, tobacco abuse. Vitals/I&O Vitals/I&O: Vital Signs Date Time Temp Pulse Resp B/P (MAP) Pulse Ox O2 Delivery O2 Flow Rate FiO2 09/27/21 10:42 97.9 53 18 125/59 (81) 93 Room Air 97.9 I & O 0 09/26/21 09/26/21 09/27/21 15:00 23:00 07:00 Intake Total 960 ml Balance 960 ml Physical Exam General: Alert, Cooperative Heart: Regular rate, No murmurs Lungs: Clear Abdomen: Normal bowel sounds, Other (mild ttp, distended ) Extremities: No clubbing, No edema Skin: No rashes, No significant lesion Assessment and Plan Assessmemt and Plan Problems Medical Problems: (1) Bowel obstruction Status: Acute Comment Review of Relevant I have reviewed the following items mervat (where applicable) has been applied. Medications: Current Medications Medications (Trade) Dose Ordered Sig/Edith Route PRN Reason Start Time Stop Time Status Last Admin Dose Admin Sodium Chloride 1,000 ml @ 100 mls/hr Q10H IV 09/26/21 11:30 09/27/21 07:49 Polyethylene Glycol (miraLAX PACKET) 17 gm BID PO 09/26/21 12:00 09/26/21 21:28 Morphine Sulfate (Morphine Sulfate) 4 mg PRN Q2HR PRN IV PAIN 09/26/21 14:00 09/27/21 07:46 Justifications for Admission Other Justification ANDRES SHAH MD Sep 27, 2021 11:19
[2021-09-27] MEDS ORDERED: LIDOCAINE 2% PF 5 ML VIAL. ONE (13:52)
[2021-09-27] MEDS ORDERED: PROPOFOL 10 MG/ML (20ML) VIAL. IV ONE ×2 (13:52→14:13)
--- NOTE | 2021-09-27 14:19 | PDOC4 ---
PROCEDURE Procedure Colonoscopy with biopsies/tattoos Indication: abnormal CT/splenic flexure mass with obstruction. Meds: per ;anesthesia. Findings: DEMARCUS normal. --'Scope advanced to near splenic flexure. Prep fair with liquid opaque stool, much of which was suctioned. Mucosa seen normal. No diverticular disease appreciated. At site of maximal advancement, apparent obstructing mass; only able to appreciate edge. Biopsies taken and area distally tattooed x 2. Retroflex and remainder of exam normal w/in limits of prep. Alfredo. well. IMP: Obstructing mass at splenic flexure, biopsies pending. REC: Would favor operative intervention and proceed before path known as clearly obstructed. GIUSEPPE SILVERMAN MD Sep 27, 2021 14:19
[2021-09-28 03:00] VITALS: BP 139/87
[2021-09-28] MEDS: IV NORMAL SALINE 1000ML BAG 1,000 ML IV SCH ×3 (03:30→23:30)
[2021-09-28] MEDS: MORPHINE SULFATE 4 MG/ML INJ. IV PRN ×4 (03:40→17:08)
[2021-09-28 07:00] VITALS: BP 121/73
--- NOTE | 2021-09-28 08:44 | PDOC ---
CEZAR ARIAS APRN 09/28/21 0844: SURGICAL PROGRESS NOTE DATE: 09/28/21 TIME: 08:43 Subjective would like to know what plan is needs to get home soon Vital Signs Vital Signs Date Time Temp Pulse Resp B/P (MAP) Pulse Ox O2 Delivery O2 Flow Rate FiO2 09/28/21 07:49 Room Air 09/28/21 07:00 97.6 52 20 121/73 (89) 94 97.6 09/28/21 03:40 3.0 General: Alert, Cooperative Abdomen: Soft, Other (distended ) Problem List Problems Medical Problems: (1) Bowel obstruction Status: Acute Assessment/Plan reviewed scope--obstructing mass continue clears,will work toward OR plans round, chart < 15 min Justicifation of Admission Dx: Justifications for Admission: Justification of Admission Dx: N/A CATARINA GUZMAN MD 09/28/21 1159: SURGICAL PROGRESS NOTE Assessment/Plan Patient seen and examined by me colonoscopy results reviewed patient with obstructing mass of the splenic flexure plan for colon resection tomorrow. Discussed procedure with patient may need colostomy depending on level of obstruction. Agree with Lupe assessment plan CEZAR ARIAS APRN Sep 28, 2021 08:44 CATARINA GUZMAN MD Sep 28, 2021 11:59
--- NOTE | 2021-09-28 10:23 | PDOC ---
Date of Service: DATE: 09/28/21 TIME: 10:21 Subjective: Subjective: Tolerating clears, passing a little flatus but no stool, pain "like it has been." Wants surgery NETTE. Objective: Vital Signs: Vital Signs Date Time Temp Pulse Resp B/P (MAP) Pulse Ox O2 Delivery O2 Flow Rate FiO2 09/28/21 07:49 Room Air 09/28/21 07:00 97.6 52 20 121/73 (89) 94 97.6 09/28/21 03:40 3.0 Imaging: Colonoscopy with biopsies/tattoos 09/27/21 Indication: abnormal CT/splenic flexure mass with obstruction. Meds: per ;anesthesia. Findings: DEMARCUS normal. --'Scope advanced to near splenic flexure. Prep fair with liquid opaque stool, much of which was suctioned. Mucosa seen normal. No diverticular disease appreciated. At site of maximal advancement, apparent obstructing mass; only able to appreciate edge. Biopsies taken and area distally tattooed x 2. Retroflex and remainder of exam normal w/in limits of prep. Alfredo. well. IMP: Obstructing mass at splenic flexure, biopsies pending. REC: Would favor operative intervention and proceed before path known as clearly obstructed. PE: GEN: NAD LUNGS: CTAB HEART: RRR ABD: round/large, non-tender, pretty quiet NEURO/PSYCH: A & O 3 A/P: Obstructing mass at splenic flexure - biopsies pending Elevated LFTs COVID negative -- Awaiting plans for OR. Justicifation of Admission Dx: Justifications for Admission: Justification of Admission Dx: N/A JANEL MCNEAL Sep 28, 2021 10:23
[2021-09-28 11:00] VITALS: BP 130/79
--- NOTE | 2021-09-28 12:38 | PDOC ---
[employer] PROGRESS NOTE Date of Service DOS: DATE: 09/28/21 TIME: 12:37 Chief Complaint Chief Complaint Bowel obstruction Overweight, HIV, diabetes, hypertension, PUD, cholecystectomy, ulcer surgery, lower intestine surgery, tobacco abuse. History of Present Illness History of Present Illness 09/28/2021 Patient seen and examined bedside. AF and VSS. Planning for surgery tomorrow. Patient's chart, labs, images were reviewed and discussed with RN 09/27/2021 Plan for colonoscopy today. Patient seen on toilet after enema. Currently receiving bowel prep. Surgery and GI following. No acute events overnight. AF and VSS. Patient's chart, labs, images were reviewed and discussed with RN 09/26/21: Patient seen and examined Chart Reviewed Discussed with RN Patient requesting something to eat/drink Patient affirms that he has passed some watery stools, but denies flatus HISTORY OF PRESENT ILLNESS: The patient is a pleasant 56-year-old male who presented to the ER with abdominal pain, was noted to have a bowel obstruction. PAST MEDICAL HISTORY: Overweight, HIV, diabetes, hypertension, PUD, cholecystectomy, ulcer surgery, lower intestine surgery, tobacco abuse. Vitals/I&O Vitals/I&O: Vital Signs Date Time Temp Pulse Resp B/P (MAP) Pulse Ox O2 Delivery O2 Flow Rate FiO2 09/28/21 11:00 97.5 48 20 130/79 (96) 96 Room Air 97.5 09/28/21 03:40 3.0 Physical Exam General: Alert, Cooperative Heart: Regular rate, No murmurs Lungs: Clear Abdomen: Soft, Other (distended ) Extremities: No clubbing, No edema Skin: No rashes, No significant lesion Assessment and Plan Assessmemt and Plan Problems Medical Problems: (1) Bowel obstruction Status: Acute Comment Review of Relevant I have reviewed the following items mervat (where applicable) has been applied. Justifications for Admission Other Justification ANDRES SHAH MD Sep 28, 2021 12:38
[2021-09-28 15:00] VITALS: BP 152/65
--- NOTE | 2021-09-28 17:32 | PATHOLOGY ---
[facility] Accession Number: [id number] . 01 Material submitted: . splenic flexure - MASS SPLENIC FLEXURE . 01 Clinical history: . ABDOMINAL PAIN, ABNORMAL CT . 02 Diagnosis: Colon biopsies, splenic flexure mass: - Tubular adenoma with high-grade dysplasia. See comment. 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 02 Comment: Sections of the splenic flexure mass biopsy reveal several segments of colonic mucosa showing no significant pathologic abnormalities, in addition to two segments of tubular adenoma showing focal high-grade dysplasia. There are focal atypical glands within the muscularis mucosa which are suspicious for an invasive colorectal adenocarcinoma. The case is also examined by Dr. Bowen, who concurs with the diagnosis. The results are reported to Dr. Avery on 09/28/21 at 12:30 PM. 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 02 Electronically signed: . Chino Valentine MD, Pathologist NPI- [id number] . 01 Gross description: . The specimen is received in formalin, labeled "Wojciech Langford, mass splenic flexure" and consists of multiple gibson-pink soft irregular tissue fragments aggregating 1.5 x 0.8 x 0.2 cm which are filtered and submitted in toto in A1.(CHINIK; 09/27/2021) DKA/DKA 09/27/2021 1723 Local . 02 Pathologist provided ICD-10: D12.3 . 02 CPT . 933387 Specimen Comment: A courtesy copy of this report has been sent to [phone], [phone] Specimen Comment: [id number] Specimen Comment: Report sent to / DR GUZMAN Performed at: 01 [facility] [address], [place] [id number] MD Misael Lambert MD Phone: [phone] Performed at: 02 [facility] [address], [place] [id number] MD Chino Valentine MD Phone: [phone]
[2021-09-28 19:00] VITALS: BP 114/80
[2021-09-28 23:00] VITALS: BP 136/86
[2021-09-29] VITALS (10 sets, daily range): BP systolic 140–170; BP diastolic 63–88
[2021-09-29] MEDS: MORPHINE SULFATE 10 MG/ML VIAL. IM PRN ×4 (01:03→11:44)
--- NOTE | 2021-09-29 02:19 | NUR ---
Early in shift, Pt c/o pain and swelling at IV site (20g accucath) in R AC. Charge nurse and supervisor cook house (Hui) notified d/t pt being very difficult stick. Pt not c/o pain at the time. At midnight pt complains of pain and is upset because no one has come up to place his IV. Pt states "If you don't get this handled right now I am calling me sister who is an RN and she will be very upset." supervisor tumblers notified, states that there is no one who can place another accucath tonight. Nsg called Dr. Moulton who ordered Morphine 10mg IM. Medication was administered to patient and pt has since been asleep. No other concerns at this time.
[2021-09-29] MEDS: IV RINGERS,LACTATED 1000ML 1,000 ML IV SCH ×3 (06:00→13:13)
[2021-09-29] MEDS ORDERED: HYDROmorphone 2 MG/ML INJ. IVP PRN (06:00)
[2021-09-29] MEDS ORDERED: PROCHLORPERAZINE 10 MG/2 ML VIAL. IVP PRN (06:00)
[2021-09-29] MEDS ORDERED: fentaNYL PF VIAL 100 MCG/2 ML VIAL IVP PRN (06:00)
[2021-09-29] MEDS: IV NORMAL SALINE 1000ML BAG 1,000 ML IV SCH ×2 (07:48→19:30)
--- NOTE | 2021-09-29 10:49 | PDOC ---
[employer] PROGRESS NOTE Date of Service DOS: DATE: 09/29/21 TIME: 10:47 Chief Complaint Chief Complaint Bowel obstruction Overweight, HIV, diabetes, hypertension, PUD, cholecystectomy, ulcer surgery, lower intestine surgery, tobacco abuse. History of Present Illness History of Present Illness 09/29/2021 Patient seen and examined Chart reviewed Discussed with RN Patient resting in bed watching videos on his phone Patient is in no apparent distress and states he is ready to go to the OR later this afternoon 09/28/2021 Patient seen and examined bedside. AF and VSS. Planning for surgery tomorrow. Patient's chart, labs, images were reviewed and discussed with RN 09/27/2021 Plan for colonoscopy today. Patient seen on toilet after enema. Currently receiving bowel prep. Surgery and GI following. No acute events overnight. AF and VSS. Patient's chart, labs, images were reviewed and discussed with RN 09/26/21: Patient seen and examined Chart Reviewed Discussed with RN Patient requesting something to eat/drink Patient affirms that he has passed some watery stools, but denies flatus HISTORY OF PRESENT ILLNESS: The patient is a pleasant 56-year-old male who presented to the ER with abdominal pain, was noted to have a bowel obstruction. PAST MEDICAL HISTORY: Overweight, HIV, diabetes, hypertension, PUD, cholecystectomy, ulcer surgery, lower intestine surgery, tobacco abuse. Vitals/I&O Vitals/I&O: Vital Signs Date Time Temp Pulse Resp B/P (MAP) Pulse Ox O2 Delivery O2 Flow Rate FiO2 09/29/21 07:49 Room Air 09/29/21 07:00 98.2 48 18 152/86 (108) 98 98.2 09/29/21 04:42 3.0 I & O 09/28/21 09/28/21 09/29/21 15:00 23:00 07:00 Intake Total 250 ml Balance 250 ml Physical Exam General: Alert, Cooperative Heart: Regular rate, No murmurs Lungs: Clear Abdomen: Soft, Other (distended ) Extremities: No clubbing, No edema Skin: No rashes, No significant lesion Assessment and Plan Assessmemt and Plan Problems Medical Problems: (1) Bowel obstruction Status: Acute ASSESSMENT: Bowel obstruction Obesity HIV diabetes hypertension PUD tobacco abuse PLAN: OR later this afternoon Home meds PRN pain meds Trend labs DVT prophylaxis Full code Appreciate subspecialist input Comment Review of Relevant I have reviewed the following items mervat (where applicable) has been applied. Medications: Current Medications Medications (Trade) Dose Ordered Sig/Edith Route PRN Reason Start Time Stop Time Status Last Admin Dose Admin Morphine Sulfate (Morphine Sulfate) 10 mg PRN Q3HRS PRN IM SEVERE PAIN 7-10 09/29/21 01:00 09/29/21 08:05 Justifications for Admission Other Justification DARLINE HOWARD III DO Sep 29, 2021 10:49
--- NOTE | 2021-09-29 10:56 | PDOC ---
G I PROGRESS NOTE Subjective No [id number] due to inclement weather. Objective Chart reviewed. Plans for OR this afternoon. Physical Exam NoPE. Review of Relevant I have reviewed the following items mervat (where applicable) has been applied. Vitals/I & O Vital Sign - Last 24 Hours 09/28/21 09/28/21 09/28/21 09/28/21 11:00 15:00 19:00 20:00 Temp 97.5 97.8 97.4 97.5 97.8 97.4 Pulse 48 56 49 Resp 20 20 18 B/P (MAP) 130/79 (96) 152/65 (94) 114/80 (91) Pulse Ox 96 95 97 O2 Delivery Room Air Room Air Room Air 09/28/21 09/29/21 09/29/21 09/29/21 23:00 00:29 01:03 01:33 Temp 97.3 97.3 Pulse 45 Resp 16 B/P (MAP) 136/86 (103) Pulse Ox 97 97 97 O2 Delivery BiPAP/CPAP Room Air Room Air O2 Flow Rate 3.0 3.0 09/29/21 09/29/21 09/29/21 09/29/21 04:12 04:16 04:42 07:00 Temp 98.2 98.2 Pulse 48 Resp 18 B/P (MAP) 152/86 (108) Pulse Ox 97 97 98 O2 Delivery Room Air BiPAP/CPAP Room Air Room Air O2 Flow Rate 3.0 3.0 09/29/21 07:49 O2 Delivery Room Air Intake and Output 09/28/21 09/28/21 09/29/21 15:00 23:00 07:00 Intake Total 250 ml Balance 250 ml Problem List Problems Medical Problems: (1) Bowel obstruction Status: Acute Assessment Path noted; likely malignant obstruction. Plan of Care Note Await operative findings. Justicifation of Admission Dx: Justifications for Admission: Justification of Admission Dx: N/A GIUSEPPE SILVERMAN MD Sep 29, 2021 10:56
[2021-09-29] MEDS ORDERED: PROPOFOL 10 MG/ML (20ML) VIAL. IV ONE ×2 (13:02→15:31)
[2021-09-29] MEDS ORDERED: ROCURONIUM 100 MG/10 ML VIAL. ONE (13:03)
[2021-09-29] MEDS ORDERED: fentaNYL PF VIAL 250 MCG/5 ML VIAL ONE (13:05)
[2021-09-29] MEDS ORDERED: SUCCINYLCHOLINE 200 MG/10 ML VIAL. ONE (13:06)
[2021-09-29] MEDS ORDERED: ceFAZolin SODIUM IV Push 1 GM VIAL. IVP ONE (13:20)
[2021-09-29] MEDS ORDERED: GLYCOPYRROLATE 1 MG/5 ML VIAL. ONE (13:32)
--- NOTE | 2021-09-29 14:06 | NUR ---
SW following. Discussed with RN, pt having surgery this morning - exploratory lap with possible colon resection. RN advised no SW needs at this time. SW will continue to follow.
[2021-09-29] MEDS ORDERED: SUGAMMADEX SODIUM 200 MG/2 ML VIAL. IVP ONE ×2 (14:15→17:00)
[2021-09-29] MEDS ORDERED: DESFLURANE > 120 MINUTES IH ONE (14:38)
[2021-09-29] MEDS ORDERED: ONDANSETRON PF 4 MG/2 ML VIAL. ONE (14:38)
[2021-09-29] MEDS ORDERED: DEXAMETHASONE SOD PHOS 4 MG/ML VIAL ONE (14:38)
[2021-09-29] MEDS ORDERED: KETAMINE HCL IN NACL, ISO-OSM 50 MG/5 ML SYRINGE ONE (14:40)
[2021-09-29] MEDS ORDERED: ROCURONIUM 50 MG/5 ML VIAL. ONE (15:27)
[2021-09-29] MEDS ORDERED: MORPHINE SULFATE 10 MG/ML VIAL. ONE (16:06)
[2021-09-29] MEDS ORDERED: ePHEDrine PF IN SALINE 50 MG/10 ML SYRINGE. IV ONE (16:17)
[2021-09-29] MEDS ORDERED: ceFAZolin SODIUM 3 GM in IV DEXTROSE 5% 100ML 100 ML IV PRN (17:30)
--- NOTE | 2021-09-29 18:13 | PDOC4 ---
Operative Note Operative Note Date: September 292021 at 1807 Preoperative diagnosis: Splenic flexure mass obstructing Postoperative diagnosis: Same Procedure: Exploratory laparotomy with subtotal colectomy small bowel resection lysis of adhesions Surgeon: Bill BiggsPodiatry Doctor: Fede Specimen: Right transverse and descending colon Dictation: Patient is a 56-year-old gentleman is admitted to the hospital with abdominal pain imaging showing concerns for colon obstruction and mass at the splenic flexure patient underwent colonoscopy to the splenic flexure and was found to have a mass concerning for malignancy nearly obstructing the patient was able to do some prep for his colonoscopy. The procedure of exploratory laparotomy with colon resection was explained to the patient detail risk benefits were also discussed occluding bleeding infection alternatives to this procedure also discussed with the patient who seemed to understand and gave a verbal written consent to have procedure performed. Patient was taken to the operating room placed in the supine position general anesthesia was initiated once patient was sleeping intubated his abdomen was prepped and draped usual sterile fashion using ChloraPrep. Midline incision was made with 10 blade scalpel is carried down through the subcutaneous tissue using electrocautery right hemostasis down to the fascia fascia was opened electrocautery to allow for surgeons finger to be placed within the abdomen there was quite a few adhesions to the anterior abdominal wall so great care was taken to open the fascia in incremental steps as adhesions were taken down bluntly off the abdominal wall. Once the abdomen was opened it was noted that there was large amount of adhesions dense and filmy many of these were taken down with blunt and sharp dissection with Metzenbaum scissors this process took approximately 70% of the time for the surgery once the adhesions were taken down tensions were then turned to the colon was noted that the cecum was quite dilated as well as the proximal colon to the splenic flexure the colon was taken down from the right colon along the white line of Toldt using electrocautery to incise this area and freed up to be able to mobilize it medially transversely the colon was freed up from its attachments the splenic flexure was taken down with blunt and sharp dissection to about the mid descending colon which then appeared to be normal. There was an area in the mid transverse colon where it was densely adherent to small bowel quite difficult to mobilize the small bowel off the colon in fact a short segment of small bowel had to be resected with the colon the small bowel ends were brought together for side to side stapled anastomosis. The colon was stapled and transected at the mid descending and sent for pathology. The terminal ileum was brought in proximity to the descending colon and a side to side stapled anastomosis was performed this anastomosis was oversewn with 3-0 Vicryl Lembert's. The abdomen was irrigated and suctioned dry saline Amarilis was then used around the spleen as there was some oozing of blood Amarilis provided hemostasis. The abdomen was then closed fascia was closed with running oh looped PDS the deep subcutaneous layer was closed with a running 3-0 Vicryl and the skin was reapproximated for subcuticular Monocryl Mastisol Steri-Strips and island dressings were applied. Patient was awakened and extubated in the operating room taken recovery in stable condition all sponge instrument needle counts listed as correct estimated blood loss 300 mL CATARINA GUZMAN MD Sep 29, 2021 18:13
[2021-09-29] MEDS ORDERED: oxyCODONE/APAP 5/325 1 TAB TABLET PO PRN (18:15)
[2021-09-29] MEDS ORDERED: MORPHINE SULFATE 2 MG/ML INJ. IV PRN (18:15)
[2021-09-29] MEDS ORDERED: 0.9 % SODIUM CHLORIDE 10 ML DISP.SYRIN. IV PRN (18:15)
[2021-09-29] MEDS ORDERED: ONDANSETRON PF 4 MG/2 ML VIAL. IV PRN (18:15)
[2021-09-29] MEDS ORDERED: MORPHINE SULFATE 2 MG/ML INJ. ONE (19:14)
[2021-09-29] MEDS ORDERED: fentaNYL PF VIAL 100 MCG/2 ML VIAL ONE (19:14)
--- NOTE | 2021-09-29 19:16 | RAD ---
AP chest x-ray HISTORY: Central line placement. FINDINGS: Nasogastric tube tip left upper quadrant general radiographic region of the stomach. Surgic al changes of the upper midline abdomen. Right jugular central venous catheter tip general radiograph ic region atriocaval junction or proximal right atrium. Heart size upper limits normal. No pneumothor ax. No pleural effusions. No pulmonary opacities. Bones are unremarkable. IMPRESSION: Lines and tubes as described above. No acute process. Electronically signed by: Jameson Mena MD (09/29/2021 7:14 PM) [facility]
[2021-09-29] MEDS: fentaNYL PF VIAL 100 MCG/2 ML VIAL IVP PRN ×2 (19:17→19:30)
[2021-09-29] MEDS: MORPHINE SULFATE 2 MG/ML INJ. IVP PRN ×2 (19:18→19:30)
[2021-09-29] MEDS ORDERED: ceFAZolin SODIUM 3 GM in IV DEXTROSE 5% 100ML 100 ML IV ONE (19:30)
[2021-09-29] MEDS: MORPHINE SULFATE 4 MG/ML INJ. IV PRN (20:15)
[2021-09-30] MEDS: KETOROLAC 15 MG/ML VIAL. IV SCH ×4 (00:03→20:25)
[2021-09-30 00:06] VITALS: BP 148/74
[2021-09-30] MEDS: IV DEXTROSE 5%-LACT RINGERS 1,000 ML IV SCH ×3 (02:31→20:55)
[2021-09-30] MEDS: cefOXitin SODIUM IV Push 1 GM VIAL. IVP SCH ×3 (02:32→20:24)
[2021-09-30] MEDS: MORPHINE SULFATE 4 MG/ML INJ. IV PRN ×5 (04:20→21:43)
[2021-09-30] MEDS: IV NORMAL SALINE 1000ML BAG 1,000 ML IV SCH ×2 (05:30→15:30)
[2021-09-30 06:50] LABS: CALCIUM 7.8 mg/dL (8.5-10.1); CREATININE 0.7 mg/dL (0.7-1.3); GFR 140.2; POTASSIUM 4.8 mmol/L (3.5-5.1)
[2021-09-30 07:00] VITALS: BP 129/75
[2021-09-30 09:34] LABS: BASO % 0 % (0-3); EOS % 0 % (0-3); HEMATOCRIT 38.6 % (39.0-53.0); HEMOGLOBIN 12.8 g/dL (13.0-17.5); LYMPH # 1.2 x10^3/uL (1.0-4.8); LYMPH % 18 % (24-48); MEAN CORPUSCULAR HEMOGLOBIN 29 pg (25-35); MEAN CORPUSCULAR HGB CONC 33 g/dL (31-37); MEAN CORPUSCULAR VOLUME 88 fL (79-100); MONO # 0.9 x10^3/uL (0.0-1.1); MONO % 14 % (0-9); NEUT # 4.5 x10^3/uL (1.8-7.7); NEUT % 68 % (31-73); PLATELET COUNT 320 x10^3/uL (140-400); RED CELL DISTRIBUTION WIDTH 14.3 % (11.5-14.5); WHITE BLOOD COUNT 6.6 x10^3/uL (4.0-11.0)
--- NOTE | 2021-09-30 09:41 | PDOC ---
SURGICAL PROGRESS NOTE DATE: 09/30/21 TIME: 09:40 Subjective Patient awake and alert states his pain is controlled with pain medication. No nausea vomiting no flatus Vital Signs Vital Signs Date Time Temp Pulse Resp B/P (MAP) Pulse Ox O2 Delivery O2 Flow Rate FiO2 09/30/21 08:16 95 Nasal Cannula 3.0 09/30/21 07:00 98.6 76 20 129/75 (93) 98.6 I&O Intake and Output 09/30/21 07:00 Intake Total 3600 ml Output Total 900 ml Balance 2700 ml Intake Oral 0 ml IV Total 3600 ml Output Urine Total 325 ml Gastric Drainage Total 275 ml Estimated Blood Loss 300 ml PATIENT HAS A ESPINOSA: Yes General: Alert, Oriented X3, Cooperative, mild distress Abdomen: Soft, Other (Mild incisional tenderness wounds clean dry and intact) Labs Laboratory Tests Test 09/29/21 12:49 09/29/21 19:03 09/30/21 04:55 09/30/21 09:05 Glucose (Fingerstick) 74 mg/dL (70-99) 154 mg/dL (70-99) Sodium Level 138 mmol/L (136-145) Potassium Level 4.8 mmol/L (3.5-5.1) Chloride Level 105 mmol/L (98-107) Carbon Dioxide Level 26 mmol/L (21-32) Anion Gap 7 (6-14) Blood Urea Nitrogen 13 mg/dL (8-26) Creatinine 0.7 mg/dL (0.7-1.3) Estimated GFR (Cockcroft-Gault) 140.2 Glucose Level 131 mg/dL (70-99) Calcium Level 7.8 mg/dL (8.5-10.1) White Blood Count 6.6 x10^3/uL (4.0-11.0) Red Blood Count 4.40 x10^6/uL (4.30-5.70) Hemoglobin 12.8 g/dL (13.0-17.5) Hematocrit 38.6 % (39.0-53.0) Mean Corpuscular Volume 88 fL (79-100) Mean Corpuscular Hemoglobin 29 pg (25-35) Mean Corpuscular Hemoglobin Concent 33 g/dL (31-37) Red Cell Distribution Width 14.3 % (11.5-14.5) Platelet Count 320 x10^3/uL (140-400) Neutrophils (%) (Auto) 68 % (31-73) Lymphocytes (%) (Auto) 18 % (24-48) Monocytes (%) (Auto) 14 % (0-9) Eosinophils (%) (Auto) 0 % (0-3) Basophils (%) (Auto) 0 % (0-3) Neutrophils # (Auto) 4.5 x10^3/uL (1.8-7.7) Lymphocytes # (Auto) 1.2 x10^3/uL (1.0-4.8) Monocytes # (Auto) 0.9 x10^3/uL (0.0-1.1) Eosinophils # (Auto) 0.0 x10^3/uL (0.0-0.7) Basophils # (Auto) 0.0 x10^3/uL (0.0-0.2) Laboratory Tests Test 09/29/21 12:49 09/29/21 19:03 09/30/21 04:55 09/30/21 09:05 Glucose (Fingerstick) 74 mg/dL (70-99) 154 mg/dL (70-99) Sodium Level 138 mmol/L (136-145) Potassium Level 4.8 mmol/L (3.5-5.1) Chloride Level 105 mmol/L (98-107) Carbon Dioxide Level 26 mmol/L (21-32) Anion Gap 7 (6-14) Blood Urea Nitrogen 13 mg/dL (8-26) Creatinine 0.7 mg/dL (0.7-1.3) Estimated GFR (Cockcroft-Gault) 140.2 Glucose Level 131 mg/dL (70-99) Calcium Level 7.8 mg/dL (8.5-10.1) White Blood Count 6.6 x10^3/uL (4.0-11.0) Red Blood Count 4.40 x10^6/uL (4.30-5.70) Hemoglobin 12.8 g/dL (13.0-17.5) Hematocrit 38.6 % (39.0-53.0) Mean Corpuscular Volume 88 fL (79-100) Mean Corpuscular Hemoglobin 29 pg (25-35) Mean Corpuscular Hemoglobin Concent 33 g/dL (31-37) Red Cell Distribution Width 14.3 % (11.5-14.5) Platelet Count 320 x10^3/uL (140-400) Neutrophils (%) (Auto) 68 % (31-73) Lymphocytes (%) (Auto) 18 % (24-48) Monocytes (%) (Auto) 14 % (0-9) Eosinophils (%) (Auto) 0 % (0-3) Basophils (%) (Auto) 0 % (0-3) Neutrophils # (Auto) 4.5 x10^3/uL (1.8-7.7) Lymphocytes # (Auto) 1.2 x10^3/uL (1.0-4.8) Monocytes # (Auto) 0.9 x10^3/uL (0.0-1.1) Eosinophils # (Auto) 0.0 x10^3/uL (0.0-0.7) Basophils # (Auto) 0.0 x10^3/uL (0.0-0.2) Problem List Problems Medical Problems: (1) Bowel obstruction Status: Acute Assessment/Plan Status post extended colectomy for splenic flexure mass obstructing Supportive care awaiting return of bowel function Justicifation of Admission Dx: Justifications for Admission: Justification of Admission Dx: N/A CATARINA GUZMAN MD Sep 30, 2021 09:41
[2021-09-30 11:00] VITALS: BP 127/64
--- NOTE | 2021-09-30 11:40 | PDOC ---
Date of Service: DATE: 09/30/21 TIME: 11:34 Subjective: Subjective: Pain managed, NGT uncomfortable. Would like to apologize for "fighting" when brought back from OR - was having difficulty breathing. Objective: Objective: D/w nurse - having panic attacks. On PPN. Vital Signs: Vital Signs Date Time Temp Pulse Resp B/P (MAP) Pulse Ox O2 Delivery O2 Flow Rate FiO2 09/30/21 10:27 95 Nasal Cannula 3.0 09/30/21 07:00 98.6 76 20 129/75 (93) 98.6 Labs: Laboratory Tests Test 09/29/21 12:49 09/29/21 19:03 09/30/21 04:55 09/30/21 09:05 Glucose (Fingerstick) 74 mg/dL 154 mg/dL Sodium Level 138 mmol/L Potassium Level 4.8 mmol/L Chloride Level 105 mmol/L Carbon Dioxide Level 26 mmol/L Anion Gap 7 Blood Urea Nitrogen 13 mg/dL Creatinine 0.7 mg/dL Estimated GFR (Cockcroft-Gault) 140.2 Glucose Level 131 mg/dL Calcium Level 7.8 mg/dL White Blood Count 6.6 x10^3/uL Red Blood Count 4.40 x10^6/uL Hemoglobin 12.8 g/dL Hematocrit 38.6 % Mean Corpuscular Volume 88 fL Mean Corpuscular Hemoglobin 29 pg Mean Corpuscular Hemoglobin Concent 33 g/dL Red Cell Distribution Width 14.3 % Platelet Count 320 x10^3/uL Neutrophils (%) (Auto) 68 % Lymphocytes (%) (Auto) 18 % Monocytes (%) (Auto) 14 % Eosinophils (%) (Auto) 0 % Basophils (%) (Auto) 0 % Neutrophils # (Auto) 4.5 x10^3/uL Lymphocytes # (Auto) 1.2 x10^3/uL Monocytes # (Auto) 0.9 x10^3/uL Eosinophils # (Auto) 0.0 x10^3/uL Basophils # (Auto) 0.0 x10^3/uL Material submitted: . splenic flexure - MASS SPLENIC FLEXURE Clinical history: . ABDOMINAL PAIN, ABNORMAL CT Diagnosis: Colon biopsies, splenic flexure mass: - Tubular adenoma with high-grade dysplasia. Comment: Sections of the splenic flexure mass biopsy reveal several segments of colonic mucosa showing no significant pathologic abnormalities, in addition to two segments of tubular adenoma showing focal high-grade dysplasia. There are focal atypical glands within the muscularis mucosa which are suspicious for an invasive colorectal adenocarcinoma. CEA 10. 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 Justicifation of Admission Dx: Justifications for Admission: Justification of Admission Dx: N/A JANEL MCNEAL Sep 30, 2021 11:40
--- NOTE | 2021-09-30 11:41 | PDOC ---
[facility] PROGRESS NOTE Date of Service DOS: DATE: 09/30/21 TIME: 11:39 Chief Complaint Chief Complaint Bowel obstruction Overweight, HIV, diabetes, hypertension, PUD, cholecystectomy, ulcer surgery, lower intestine surgery, tobacco abuse. History of Present Illness History of Present Illness 09/30/21 Patient seen and examined Chart reviewed Discussed with RN Post op day one exploratory laparotomy with subtotal colectomy small bowel resection lysis of adhesions Patient has not yet passed flatus. Patient laying in bed. NG tube in place. Dressing clean, dry, and intact. 09/29/2021 Patient seen and examined Chart reviewed Discussed with RN Patient resting in bed watching videos on his phone Patient is in no apparent distress and states he is ready to go to the OR later this afternoon 09/28/2021 Patient seen and examined bedside. AF and VSS. Planning for surgery tomorrow. Patient's chart, labs, images were reviewed and discussed with RN 09/27/2021 Plan for colonoscopy today. Patient seen on toilet after enema. Currently receiving bowel prep. Surgery and GI following. No acute events overnight. AF and VSS. Patient's chart, labs, images were reviewed and discussed with RN 09/26/21: Patient seen and examined Chart Reviewed Discussed with RN Patient requesting something to eat/drink Patient affirms that he has passed some watery stools, but denies flatus HISTORY OF PRESENT ILLNESS: The patient is a pleasant 56-year-old male who presented to the ER with abdominal pain, was noted to have a bowel obstruction. PAST MEDICAL HISTORY: Overweight, HIV, diabetes, hypertension, PUD, cholecystectomy, ulcer surgery, lower intestine surgery, tobacco abuse. Vitals/I&O Vitals/I&O: Vital Signs Date Time Temp Pulse Resp B/P (MAP) Pulse Ox O2 Delivery O2 Flow Rate FiO2 09/30/21 10:27 95 Nasal Cannula 3.0 09/30/21 07:00 98.6 76 20 129/75 (93) 98.6 I & O 09/29/21 09/29/21 09/30/21 15:00 23:00 07:00 Intake Total 3600 ml 0 ml Output Total 625 ml 275 ml Balance 2975 ml -275 ml Physical Exam General: Alert, Oriented X3, Cooperative, mild distress Heart: Regular rate, No murmurs Lungs: Clear Abdomen: Soft, Other (Mild incisional tenderness wounds clean dry and intact) Extremities: No clubbing, No edema Skin: No rashes, No significant lesion Labs Labs: Laboratory Tests Test 09/29/21 12:49 09/29/21 19:03 09/30/21 04:55 09/30/21 09:05 Glucose (Fingerstick) 74 mg/dL (70-99) 154 mg/dL (70-99) Sodium Level 138 mmol/L (136-145) Potassium Level 4.8 mmol/L (3.5-5.1) Chloride Level 105 mmol/L (98-107) Carbon Dioxide Level 26 mmol/L (21-32) Anion Gap 7 (6-14) Blood Urea Nitrogen 13 mg/dL (8-26) Creatinine 0.7 mg/dL (0.7-1.3) Estimated GFR (Cockcroft-Gault) 140.2 Glucose Level 131 mg/dL (70-99) Calcium Level 7.8 mg/dL (8.5-10.1) White Blood Count 6.6 x10^3/uL (4.0-11.0) Red Blood Count 4.40 x10^6/uL (4.30-5.70) Hemoglobin 12.8 g/dL (13.0-17.5) Hematocrit 38.6 % (39.0-53.0) Mean Corpuscular Volume 88 fL (79-100) Mean Corpuscular Hemoglobin 29 pg (25-35) Mean Corpuscular Hemoglobin Concent 33 g/dL (31-37) Red Cell Distribution Width 14.3 % (11.5-14.5) Platelet Count 320 x10^3/uL (140-400) Neutrophils (%) (Auto) 68 % (31-73) Lymphocytes (%) (Auto) 18 % (24-48) Monocytes (%) (Auto) 14 % (0-9) Eosinophils (%) (Auto) 0 % (0-3) Basophils (%) (Auto) 0 % (0-3) Neutrophils # (Auto) 4.5 x10^3/uL (1.8-7.7) Lymphocytes # (Auto) 1.2 x10^3/uL (1.0-4.8) Monocytes # (Auto) 0.9 x10^3/uL (0.0-1.1) Eosinophils # (Auto) 0.0 x10^3/uL (0.0-0.7) Basophils # (Auto) 0.0 x10^3/uL (0.0-0.2) Assessment and Plan Assessmemt and Plan Problems Medical Problems: (1) Bowel obstruction Status: Acute ASSESSMENT: Bowel obstruction Obesity HIV diabetes hypertension PUD tobacco abuse PLAN: Home meds Wound care PRN pain meds Trend labs DVT prophylaxis Full code Appreciate subspecialist input Comment Review of Relevant I have reviewed the following items mervat (where applicable) has been applied. Medications: Current Medications Medications (Trade) Dose Ordered Sig/Edith Route PRN Reason Start Time Stop Time Status Last Admin Dose Admin Metronidazole 100 ml @ 100 mls/hr 1X ONCE IV 09/29/21 13:30 09/29/21 14:29 DC 09/29/21 13:27 Cefazolin Sodium (Ancef) 3 gm 1X ONCE IV 09/29/21 13:30 09/29/21 13:31 DC 09/29/21 13:27 Cefazolin Sodium 3 gm/Dextrose 100 ml @ 200 mls/hr 1X PREOP PRN IV PRIOR TO PROCEDURE 09/29/21 17:30 09/30/21 17:29 09/29/21 17:27 Cefoxitin Sodium (Mefoxin) 1 gm Q8H IVP 09/30/21 02:00 09/30/21 18:01 09/30/21 09:58 Ketorolac Tromethamine (Toradol 15mg Vial) 15 mg Q6HRS IV 09/30/21 00:00 10/01/21 23:59 09/30/21 07:46 Ondansetron HCl (Zofran) 4 mg PRN Q6HRS PRN IV NAUSEA, 1ST CHOICE 09/29/21 18:15 09/30/21 09:57 Dextrose/Lactated Ringer's 1,000 ml @ 75 mls/hr [id number] IV 09/29/21 18:15 09/30/21 02:31 Justifications for Admission Other Justification DARLINE HOWARD III DO Sep 30, 2021 11:40
[2021-09-30] MEDS: PANTOPRAZOLE IV PUSH 40 MG VIAL. IVP SCH (13:04)
[2021-09-30] MEDS: MORPHINE SULFATE 10 MG/ML VIAL. IM PRN (13:05)
--- NOTE | 2021-09-30 13:47 | PDOC2 ---
CONSULT Date of Consult Date of Consult DATE: 09/30/21 TIME: 13:41 Reason for Consult Reason for Consult: Colonic mass, suspected cancer Referring Physician Referring Physician: Dr. Kasper Identification/Chief Complaint Chief Complaint Abdominal pain Source Source: Chart review, Patient History of Present Illness Reason for Visit: Wojciech Langford is a 56-year-old man who has been admitted to [facility] with abdominal pain. Patient reported a 1 to 2-week history of abnormal bowel habits. He presented to the hospital with abdominal pain and distention. X-ray was obtained for further evaluation and showed nonobstructive bowel gas pattern. CT of the abdomen was obtained and showed focal wall thickening at the splenic flexure concerning for an obstructing lesion with associated progressive dilatation of the more proximal colon. He was seen by Dr. Avery and received a colonoscopy showing an obstructive mass at the splenic flexure. The mass was biopsied and showed high-grade tubular adenoma with features concerning for invasive cancer. Surgical consultation was recommended and he was taken to the operating room by Dr. Khan on 09/29/2021. Surgical pathology is pending. He is currently recovering postoperatively. Medical oncology consultation has been requested for further recommendations regarding management given anticipated diagnosis of invasive colorectal adenocarcinoma. He was previously a resident of [place] and recently relocated to the [facility]. Patient does report a history of HIV. He takes ART. He was receiving it from [facility] in [place]. Has not transferred care to [facility] yet and does not have a PCP in the [facility] Past Medical History Cardiovascular: No pertinent hx Pulmonary: No pertinent hx GI: Peptic Ulcer disease Heme/Onc: No pertinent hx Hepatobiliary: No pertinent hx Psych: No pertinent hx Rheumatologic: No pertinent hx Infectious disease: HIV ENT: No pertinent hx Renal/: No pertinent hx Endocrine: Diabetes Dermatology: No pertinent hx Past Surgical History Past Surgical History: Cholecystectomy, Other (Some type of intestinal surgery for ulcer disease) Family History Family History: No Significant Social History 1 pack per day ALCOHOL: occassional Drugs: None Lives: Alone Current Problem List Problem List Problems Medical Problems: (1) Bowel obstruction Status: Acute Current Medications Current Medications Current Medications Sodium Chloride 1,000 ml @ 999 mls/hr 1X ONCE IV Last administered on 09/24/21at 19:02; Start 09/24/21 at 18:45; Stop 09/24/21 at 19:45; Status DC Iohexol (Omnipaque 300 Mg/ml) 100 ml 1X ONCE IV Last administered on 09/24/21at 19:40; Start 09/24/21 at 19:15; Stop 09/24/21 at 19:18; Status DC Info (CONTRAST GIVEN -- Rx MONITORING) 1 each PRN DAILY PRN MC SEE COMMENTS; Start 09/24/21 at 19:30; Stop 09/26/21 at 19:29; Status DC Metoclopramide HCl (Reglan Vial) 10 mg 1X ONCE IVP Last administered on 09/24/21at 21:53; Start 09/24/21 at 19:30; Stop 09/24/21 at 19:41; Status DC Morphine Sulfate (Morphine Sulfate) 4 mg 1X ONCE IVP Last administered on 09/24/21at 19:35; Start 09/24/21 at 19:30; Stop 09/24/21 at 19:41; Status DC Ondansetron HCl (Zofran) 4 mg PRN Q8HRS PRN IVP NAUSEA/VOMITING; Start 09/24/21 at 20:30; Stop 09/25/21 at 20:29; Status DC Morphine Sulfate (Morphine Sulfate) 4 mg PRN Q2HR PRN IVP PAIN Last administered on 09/25/21at 20:04; Start 09/24/21 at 20:30; Stop 09/25/21 at 20:29; Status DC Sodium Chloride 1,000 ml @ 100 mls/hr Q10H IV Last administered on 09/25/21at 09:11; Start 09/24/21 at 20:30; Stop 09/25/21 at 20:29; Status DC Ceftriaxone Sodium (Rocephin) 1 gm 1X ONCE IVP Last administered on 09/24/21at 21:56; Start 09/24/21 at 20:30; Stop 09/24/21 at 20:33; Status DC Sodium Chloride 1,000 ml @ 100 mls/hr Q10H IV Last administered on 09/28/21at 13:01; Start 09/26/21 at 11:30 Polyethylene Glycol (miraLAX PACKET) 17 gm BID PO Last administered on 09/26/21at 21:28; Start 09/26/21 at 12:00; Stop 09/27/21 at 15:08; Status DC Morphine Sulfate (Morphine Sulfate) 4 mg PRN Q2HR PRN IV PAIN Last administered on 09/30/21at 09:57; Start 09/26/21 at 14:00 Propofol (Diprivan) 200 mg STK-MED ONCE IV ; Start 09/27/21 at 13:52; Stop 09/27/21 at 13:53; Status DC Lidocaine HCl (Lidocaine Pf 2% Vial) 5 ml STK-MED ONCE .ROUTE ; Start 09/27/21 at 13:52; Stop 09/27/21 at 13:53; Status DC Propofol (Diprivan) 200 mg STK-MED ONCE IV ; Start 09/27/21 at 14:13; Stop 09/27/21 at 14:14; Status DC Fentanyl Citrate (Fentanyl 2ml Vial) 25 mcg PRN Q5MIN PRN IVP MILD PAIN 1-3; Start 09/29/21 at 06:00; Stop 09/30/21 at 05:59; Status DC Fentanyl Citrate (Fentanyl 2ml Vial) 50 mcg PRN Q5MIN PRN IVP MODERATE PAIN 4-6 Last administered on 09/29/21at 19:30; Start 09/29/21 at 06:00; Stop 09/30/21 at 05:59; Status DC Morphine Sulfate (Morphine Sulfate) 1 mg PRN Q10MIN PRN IVP SEVERE PAIN 7-10 Last administered on 09/29/21at 19:30; Start 09/29/21 at 06:00; Stop 09/30/21 at 05:59; Status DC Ringer's Solution 1,000 ml @ 30 mls/hr Q24H IV Last administered on 09/29/21at 13:13; Start 09/29/21 at 06:00; Stop 09/29/21 at 17:59; Status DC Hydromorphone HCl (Dilaudid) 0.5 mg PRN Q10MIN PRN IVP SEVERE PAIN 7-10, 2nd CHOICE; Start 09/29/21 at 06:00; Stop 09/30/21 at 05:59; Status DC Prochlorperazine Edisylate (Compazine) 5 mg PACU PRN PRN IVP NAUSEA, MRX1 Last administered on 09/29/21at 19:50; Start 09/29/21 at 06:00; Stop 09/30/21 at 05:59; Status DC Morphine Sulfate (Morphine Sulfate) 10 mg PRN Q3HRS PRN IM SEVERE PAIN 7-10 Last administered on 09/30/21at 13:05; Start 09/29/21 at 01:00 Propofol (Diprivan) 200 mg STK-MED ONCE IV ; Start 09/29/21 at 13:02; Stop 09/29/21 at 13:02; Status DC Rocuronium [place] (Zemuron) 100 mg STK-MED ONCE .ROUTE ; Start 09/29/21 at 13:03; Stop 09/29/21 at 13:04; Status DC Fentanyl Citrate (Fentanyl 5ml Vial) 250 mcg STK-MED ONCE .ROUTE ; Start 09/29/21 at 13:05; Stop 09/29/21 at 13:06; Status DC Succinylcholine Chloride (Anectine) 200 mg STK-MED ONCE .ROUTE ; Start 09/29/21 a t 13:06; Stop 09/29/21 at 13:06; Status DC Metronidazole 100 ml @ 100 mls/hr 1X ONCE IV Last administered on 09/29/21at 13:27; Start 09/29/21 at 13:30; Stop 09/29/21 at 14:29; Status DC Cefazolin Sodium (Ancef) 3 gm 1X ONCE IV Last administered on 09/29/21at 13:27; Start 09/29/21 at 13:30; Stop 09/29/21 at 13:31; Status DC Metronidazole 100 ml @ As Directed STK-MED ONCE IV ; Start 09/29/21 at 13:19; Stop 09/29/21 at 13:19; Status DC Cefazolin Sodium (Ancef) 1 gm STK-MED ONCE IVP ; Start 09/29/21 at 13:20; Stop 09/29/21 at 13:20; Status DC Glycopyrrolate (Robinul) 1 mg STK-MED ONCE .ROUTE ; Start 09/29/21 at 13:32; Stop 09/29/21 at 13:32; Status DC Sugammadex Sodium (Bridion) 200 mg 1X ONCE IVP ; Start 09/29/21 at 14:15; Stop 09/29/21 at 14:20; Status DC Dexamethasone Sodium Phosphate (Decadron) 4 mg STK-MED ONCE .ROUTE ; Start 09/29/21 at 14:38; Stop 09/29/21 at 14:38; Status DC Ondansetron HCl (Zofran) 4 mg STK-MED ONCE .ROUTE ; Start 09/29/21 at 14:38; Stop 09/29/21 at 14:38; Status DC Desflurane (Suprane) 90 ml STK-MED ONCE IH ; Start 09/29/21 at 14:38; Stop 09/29/21 at 14:38; Status DC Ketamine HCl (Ketamine) 50 mg STK-MED ONCE .ROUTE ; Start 09/29/21 at 14:40; Stop 09/29/21 at 14:40; Status DC Rocuronium [place] (Zemuron) 50 mg STK-MED ONCE .ROUTE ; Start 09/29/21 at 15:27; Stop 09/29/21 at 15:27; Status DC Propofol (Diprivan) 200 mg STK-MED ONCE IV ; Start 09/29/21 at 15:31; Stop 09/29/21 at 15:31; Status DC Morphine Sulfate (Morphine Sulfate) 10 mg STK-MED ONCE .ROUTE ; Start 09/29/21 at 16:06; Stop 09/29/21 at 16:06; Status DC Ephedrine Sulfate (ePHEDrine PF IN SALINE SYRINGE) 50 mg STK-MED ONCE IV ; Start 09/29/21 at 16:17; Stop 09/29/21 at 16:18; Status DC Cefazolin Sodium 3 gm/Dextrose 100 ml @ 200 mls/hr 1X PREOP PRN IV PRIOR TO PROCEDURE Last administered on 09/29/21at 17:27; Start 09/29/21 at 17:30; Stop 09/30/21 at 17:29 Sugammadex Sodium (Bridion) 200 mg STK-MED ONCE IVP ; Start 09/29/21 at 17:00; Stop 09/29/21 at 18:06; Status DC Cefoxitin Sodium (Mefoxin) 1 gm Q8H IVP Last administered on 09/30/21at 09:58; Start 09/30/21 at 02:00; Stop 09/30/21 at 18:01 Sodium Chloride (Normal Saline Flush) 3 ml QSHIFT PRN IV AFTER MEDS AND BLOOD DRAWS; Start 09/29/21 at 18:15 Morphine Sulfate (Morphine Sulfate) 2 mg PRN Q3HRS PRN IV PAIN; Start 09/29/21 at 18:15 Oxycodone/ Acetaminophen (Percocet 5/325) 1 tab PRN Q4HRS PRN PO MILD PAIN, 1ST CHOICE; Start 09/29/21 at 18:15 Oxycodone/ Acetaminophen (Percocet 5/325) 2 tab PRN Q4HRS PRN PO MODERATE PAIN, SEVERE PAIN; Start 09/29/21 at 18:15 Ketorolac Tromethamine (Toradol 15mg Vial) 15 mg Q6HRS IV Last administered on 09/30/21at 12:00; Start 09/30/21 at 00:00; Stop 10/01/21 at 23:59 Ondansetron HCl (Zofran) 4 mg PRN Q6HRS PRN IV NAUSEA, 1ST CHOICE Last administered on 09/30/21at 09:57; Start 09/29/21 at 18:15 Dextrose/Lactated Ringer's 1,000 ml @ 75 mls/hr [id number] IV Last administered on 09/30/21at 02:31; Start 09/29/21 at 18:15 Fentanyl Citrate (Fentanyl 2ml Vial) 100 mcg STK-MED ONCE .ROUTE ; Start 09/29/21 at 19:14; Stop 09/29/21 at 19:14; Status DC Morphine Sulfate (Morphine Sulfate) 2 mg STK-MED ONCE .ROUTE ; Start 09/29/21 at 19:14; Stop 09/29/21 at 19:15; Status DC Cefazolin Sodium 3 gm/Dextrose 100 ml @ 200 mls/hr 1X ONCE IV ; Start 09/29/21 at 19:30; Stop 09/29/21 at 19:59; Status UNV Amino Acids/ Electrolytes/ Dextrose 1,000 ml @ 80 mls/hr [id number] IV ; Start 09/30/21 at 11:30 Pantoprazole Sodium (PROTONIX VIAL for IV PUSH) 40 mg DAILYAC IVP Last administered on 09/30/21at 13:04; Start 09/30/21 at 12:00 Active Scripts Active Reported Lisinopril 10 Mg Tablet 1 Tab PO DAILY Atorvastatin Calcium 10 Mg Tablet 10 Mg PO HS Symtuza [id number] mg Tab (Darunavir/Cob/Emtri/Tenof Alaf) 1 Each Tablet 1 Each PO DAILY Allergies Allergies: Coded Allergies: metformin (Verified Allergy, Intermediate, 09/27/21) ROS Review of System Negative unless stated otherwise in interval history Physical Exam Physical Exam General: Awake, alert, no distress Head: Atraumatic, no conjunctival icterus, normal oral cavity mucosa Neck: Supple, no lymphadenopathy Chest: No trauma noted Cardiovascular: Regular rhythm, normal rate, no murmurs Respiratory: Bilateral air entry noted, lungs clear to auscultation bilaterally. No accessory muscle use Abdominal: Abdomen is soft, nontender, nondistended. Bowel sounds were normal. No hepatomegaly or splenomegaly Musculoskeletal: No deformity noted Extremities: No edema noted Skin: No rash or lesions Neurologic: Alert and oriented x3, no grossly evident neurologic deficits noted. Full neurological exam was not performed Psychiatric: Appropriate mood and affect Vitals VITALS Vital Signs Date Time Temp Pulse Resp B/P (MAP) Pulse Ox O2 Delivery O2 Flow Rate FiO2 09/30/21 13:05 97 Nasal Cannula 3.0 09/30/21 11:00 98.5 77 20 127/64 (85) 98.5 Labs Labs Laboratory Tests Test 09/29/21 12:49 09/29/21 19:03 09/30/21 04:55 09/30/21 09:05 Glucose (Fingerstick) 74 mg/dL (70-99) 154 mg/dL (70-99) Sodium Level 138 mmol/L (136-145) Potassium Level 4.8 mmol/L (3.5-5.1) Chloride Level 105 mmol/L (98-107) Carbon Dioxide Level 26 mmol/L (21-32) Anion Gap 7 (6-14) Blood Urea Nitrogen 13 mg/dL (8-26) Creatinine 0.7 mg/dL (0.7-1.3) Estimated GFR (Cockcroft-Gault) 140.2 Glucose Level 131 mg/dL (70-99) Calcium Level 7.8 mg/dL (8.5-10.1) White Blood Count 6.6 x10^3/uL (4.0-11.0) Red Blood Count 4.40 x10^6/uL (4.30-5.70) Hemoglobin 12.8 g/dL (13.0-17.5) Hematocrit 38.6 % (39.0-53.0) Mean Corpuscular Volume 88 fL (79-100) Mean Corpuscular Hemoglobin 29 pg (25-35) Mean Corpuscular Hemoglobin Concent 33 g/dL (31-37) Red Cell Distribution Width 14.3 % (11.5-14.5) Platelet Count 320 x10^3/uL (140-400) Neutrophils (%) (Auto) 68 % (31-73) Lymphocytes (%) (Auto) 18 % (24-48) Monocytes (%) (Auto) 14 % (0-9) Eosinophils (%) (Auto) 0 % (0-3) Basophils (%) (Auto) 0 % (0-3) Neutrophils # (Auto) 4.5 x10^3/uL (1.8-7.7) Lymphocytes # (Auto) 1.2 x10^3/uL (1.0-4.8) Monocytes # (Auto) 0.9 x10^3/uL (0.0-1.1) Eosinophils # (Auto) 0.0 x10^3/uL (0.0-0.7) Basophils # (Auto) 0.0 x10^3/uL (0.0-0.2) Laboratory Tests Test 09/29/21 19:03 09/30/21 04:55 09/30/21 09:05 Glucose (Fingerstick) 154 mg/dL (70-99) Sodium Level 138 mmol/L (136-145) Potassium Level 4.8 mmol/L (3.5-5.1) Chloride Level 105 mmol/L (98-107) Carbon Dioxide Level 26 mmol/L (21-32) Anion Gap 7 (6-14) Blood Urea Nitrogen 13 mg/dL (8-26) Creatinine 0.7 mg/dL (0.7-1.3) Estimated GFR (Cockcroft-Gault) 140.2 Glucose Level 131 mg/dL (70-99) Calcium Level 7.8 mg/dL (8.5-10.1) White Blood Count 6.6 x10^3/uL (4.0-11.0) Red Blood Count 4.40 x10^6/uL (4.30-5.70) Hemoglobin 12.8 g/dL (13.0-17.5) Hematocrit 38.6 % (39.0-53.0) Mean Corpuscular Volume 88 fL (79-100) Mean Corpuscular Hemoglobin 29 pg (25-35) Mean Corpuscular Hemoglobin Concent 33 g/dL (31-37) Red Cell Distribution Width 14.3 % (11.5-14.5) Platelet Count 320 x10^3/uL (140-400) Neutrophils (%) (Auto) 68 % (31-73) Lymphocytes (%) (Auto) 18 % (24-48) Monocytes (%) (Auto) 14 % (0-9) Eosinophils (%) (Auto) 0 % (0-3) Basophils (%) (Auto) 0 % (0-3) Neutrophils # (Auto) 4.5 x10^3/uL (1.8-7.7) Lymphocytes # (Auto) 1.2 x10^3/uL (1.0-4.8) Monocytes # (Auto) 0.9 x10^3/uL (0.0-1.1) Eosinophils # (Auto) 0.0 x10^3/uL (0.0-0.7) Basophils # (Auto) 0.0 x10^3/uL (0.0-0.2) Assessment/Plan Assessment/Plan Assessment: Colonic mass, obstructing, likely colon cancer Normocytic anemia Elevated CEA Abdominal pain likely secondary to obstruction, improved Reported history of HIV Type 2 diabetes Recommendations: -We will follow up on results surgical pathology. I discussed with the patient that the role of adjuvant chemotherapy and colon cancer would depend on staging. Given presentation with obstruction, would favor adjuvant chemotherapy but will plan to discuss further after surgical pathology results are available -Check CT chest to complete staging -Check iron studies B12 folate for further evaluation of anemia -We will plan on repeating CEA as outpatient -Continue postoperative care per Dr. Khan and team -Repeat endoscopy would be due 1 year from diagnosis. -We will arrange outpatient follow-up 1 to 2 weeks from hospital discharge. Patient was provided with contact information for my office. -Rest per HELEN Tripp MD Sep 30, 2021 13:47
[2021-09-30] MEDS: AA 4.25 %/CALCIUM/LYTES/D5W 1,000 ML IV SCH (14:33)
[2021-09-30 15:00] VITALS: BP 113/62
[2021-09-30 19:00] VITALS: BP 135/70
[2021-09-30 23:08] VITALS: BP 116/57
[2021-10-01] MEDS: AA 4.25 %/CALCIUM/LYTES/D5W 1,000 ML IV SCH ×2 (00:16→11:38)
[2021-10-01] MEDS: KETOROLAC 15 MG/ML VIAL. IV SCH ×4 (00:16→17:18)
[2021-10-01] MEDS: IV NORMAL SALINE 1000ML BAG 1,000 ML IV SCH ×3 (01:30→21:30)
[2021-10-01] MEDS: MORPHINE SULFATE 4 MG/ML INJ. IV PRN ×5 (01:43→23:31)
[2021-10-01 03:00] VITALS: BP 125/60
[2021-10-01 07:00] VITALS: BP 108/48
--- NOTE | 2021-10-01 08:33 | PDOC ---
SURGICAL PROGRESS NOTE DATE: 10/01/21 TIME: 08:31 Subjective Patient doing well states he is passing flatus would like to have his NG tube out no bowel movement Vital Signs Vital Signs Date Time Temp Pulse Resp B/P (MAP) Pulse Ox O2 Delivery O2 Flow Rate FiO2 10/01/21 07:00 98.6 67 18 108/48 (68) 97 BiPAP/CPAP 98.6 10/01/21 04:38 3.0 I&O Intake and Output 10/01/21 07:00 Output Total 2000 ml Balance -2000 ml Output Urine Total 1150 ml Gastric Drainage Total 850 ml PATIENT HAS A ESPINOSA: No General: Alert, Oriented X3, Cooperative, mild distress Abdomen: Normal bowel sounds, Soft, Other (Mild incisional tenderness wounds clean dry and intact NG tube with less output less bilious) Labs Laboratory Tests Test 09/29/21 12:49 09/29/21 19:03 09/30/21 04:55 09/30/21 09:05 Glucose (Fingerstick) 74 mg/dL (70-99) 154 mg/dL (70-99) Sodium Level 138 mmol/L (136-145) Potassium Level 4.8 mmol/L (3.5-5.1) Chloride Level 105 mmol/L (98-107) Carbon Dioxide Level 26 mmol/L (21-32) Anion Gap 7 (6-14) Blood Urea Nitrogen 13 mg/dL (8-26) Creatinine 0.7 mg/dL (0.7-1.3) Estimated GFR (Cockcroft-Gault) 140.2 Glucose Level 131 mg/dL (70-99) Calcium Level 7.8 mg/dL (8.5-10.1) White Blood Count 6.6 x10^3/uL (4.0-11.0) Red Blood Count 4.40 x10^6/uL (4.30-5.70) Hemoglobin 12.8 g/dL (13.0-17.5) Hematocrit 38.6 % (39.0-53.0) Mean Corpuscular Volume 88 fL (79-100) Mean Corpuscular Hemoglobin 29 pg (25-35) Mean Corpuscular Hemoglobin Concent 33 g/dL (31-37) Red Cell Distribution Width 14.3 % (11.5-14.5) Platelet Count 320 x10^3/uL (140-400) Neutrophils (%) (Auto) 68 % (31-73) Lymphocytes (%) (Auto) 18 % (24-48) Monocytes (%) (Auto) 14 % (0-9) Eosinophils (%) (Auto) 0 % (0-3) Basophils (%) (Auto) 0 % (0-3) Neutrophils # (Auto) 4.5 x10^3/uL (1.8-7.7) Lymphocytes # (Auto) 1.2 x10^3/uL (1.0-4.8) Monocytes # (Auto) 0.9 x10^3/uL (0.0-1.1) Eosinophils # (Auto) 0.0 x10^3/uL (0.0-0.7) Basophils # (Auto) 0.0 x10^3/uL (0.0-0.2) Laboratory Tests Test 09/30/21 09:05 White Blood Count 6.6 x10^3/uL (4.0-11.0) Red Blood Count 4.40 x10^6/uL (4.30-5.70) Hemoglobin 12.8 g/dL (13.0-17.5) Hematocrit 38.6 % (39.0-53.0) Mean Corpuscular Volume 88 fL (79-100) Mean Corpuscular Hemoglobin 29 pg (25-35) Mean Corpuscular Hemoglobin Concent 33 g/dL (31-37) Red Cell Distribution Width 14.3 % (11.5-14.5) Platelet Count 320 x10^3/uL (140-400) Neutrophils (%) (Auto) 68 % (31-73) Lymphocytes (%) (Auto) 18 % (24-48) Monocytes (%) (Auto) 14 % (0-9) Eosinophils (%) (Auto) 0 % (0-3) Basophils (%) (Auto) 0 % (0-3) Neutrophils # (Auto) 4.5 x10^3/uL (1.8-7.7) Lymphocytes # (Auto) 1.2 x10^3/uL (1.0-4.8) Monocytes # (Auto) 0.9 x10^3/uL (0.0-1.1) Eosinophils # (Auto) 0.0 x10^3/uL (0.0-0.7) Basophils # (Auto) 0.0 x10^3/uL (0.0-0.2) Problem List Problems Medical Problems: (1) Bowel obstruction Status: Acute Assessment/Plan Status post subtotal colectomy Clamp NG tube Continue supportive care awaiting return of bowel function Justicifation of Admission Dx: Justifications for Admission: Justification of Admission Dx: N/A CATARINA GUZMAN MD Oct 01, 2021 08:33
[2021-10-01 08:35] LABS: BASO % 0 % (0-3); EOS # 0.2 x10^3/uL (0.0-0.7); EOS % 2 % (0-3); HEMATOCRIT 34.6 % (39.0-53.0); HEMOGLOBIN 11.3 g/dL (13.0-17.5); LYMPH # 1.7 x10^3/uL (1.0-4.8); LYMPH % 23 % (24-48); MEAN CORPUSCULAR HEMOGLOBIN 29 pg (25-35); MEAN CORPUSCULAR HGB CONC 33 g/dL (31-37); MEAN CORPUSCULAR VOLUME 88 fL (79-100); MONO % 14 % (0-9); NEUT # 4.6 x10^3/uL (1.8-7.7); NEUT % 61 % (31-73); PLATELET COUNT 311 x10^3/uL (140-400); RED BLOOD COUNT 3.94 x10^6/uL (4.30-5.70); RED CELL DISTRIBUTION WIDTH 14.3 % (11.5-14.5); WHITE BLOOD COUNT 7.5 x10^3/uL (4.0-11.0)
[2021-10-01 08:44] LABS: CALCIUM 7.8 mg/dL (8.5-10.1); CREATININE 0.8 mg/dL (0.7-1.3); GFR 120.1; POTASSIUM 4.1 mmol/L (3.5-5.1)
[2021-10-01] MEDS: PANTOPRAZOLE IV PUSH 40 MG VIAL. IVP SCH (09:34)
[2021-10-01] MEDS: IV DEXTROSE 5%-LACT RINGERS 1,000 ML IV SCH ×2 (09:35→23:35)
--- NOTE | 2021-10-01 09:48 | PDOC ---
Date of Service: DATE: 10/01/21 TIME: 09:45 Objective: Vital Signs: Vital Signs Date Time Temp Pulse Resp B/P (MAP) Pulse Ox O2 Delivery O2 Flow Rate FiO2 10/01/21 09:34 97 3.0 10/01/21 07:00 98.6 67 18 108/48 (68) BiPAP/CPAP 98.6 Labs: Laboratory Tests Test 10/01/21 08:00 White Blood Count 7.5 x10^3/uL Red Blood Count 3.94 x10^6/uL Hemoglobin 11.3 g/dL Hematocrit 34.6 % Mean Corpuscular Volume 88 fL Mean Corpuscular Hemoglobin 29 pg Mean Corpuscular Hemoglobin Concent 33 g/dL Red Cell Distribution Width 14.3 % Platelet Count 311 x10^3/uL Neutrophils (%) (Auto) 61 % Lymphocytes (%) (Auto) 23 % Monocytes (%) (Auto) 14 % Eosinophils (%) (Auto) 2 % Basophils (%) (Auto) 0 % Neutrophils # (Auto) 4.6 x10^3/uL Lymphocytes # (Auto) 1.7 x10^3/uL Monocytes # (Auto) 1.0 x10^3/uL Eosinophils # (Auto) 0.2 x10^3/uL Basophils # (Auto) 0.0 x10^3/uL Sodium Level 139 mmol/L Potassium Level 4.1 mmol/L Chloride Level 105 mmol/L Carbon Dioxide Level 32 mmol/L Anion Gap 2 Blood Urea Nitrogen 18 mg/dL Creatinine 0.8 mg/dL Estimated GFR (Cockcroft-Gault) 120.1 Glucose Level 108 mg/dL Calcium Level 7.8 mg/dL Iron Level 9 ug/dL Total Iron Binding Capacity 121 ug/dL Iron Saturation 7 % Ferritin 366 ng/mL PE: GEN: NAD - was sleeping w/ CPAP when I stopped by - not disturbed LUNGS: CPAP HEART: RR ABD: NGT ~300cc dark bilious ouput NEURO/PSYCH: sleeping A/P: Obstructing splenic flexure mass (likely malignant) s/p subtotal colectomy, small bowel resection, lysis of adhesions -- Since I have seen, plans to clamp NGT, pt reported passing flatus. Continue IV PPI. Heme/onc following - plans for outpt follow-up, possible chemo pending surgical pathology. Justicifation of Admission Dx: Justifications for Admission: Justification of Admission Dx: N/A JANEL MCNEAL Oct 01, 2021 09:48
--- NOTE | 2021-10-01 10:20 | NUR ---
SW following. Discussed with RN, pt from home, room air (has CPAP for night at home), NPO, COVID-19 negative. NG clamped. Oncology follow up outpatient. Pt will discharge home when medically stable. SW will continue to follow.
[2021-10-01 11:00] VITALS: BP 110/52
--- NOTE | 2021-10-01 11:25 | PDOC ---
[facility] PROGRESS NOTE Date of Service DOS: DATE: 10/01/21 TIME: 11:21 Chief Complaint Chief Complaint Bowel obstruction Overweight, HIV, diabetes, hypertension, PUD, cholecystectomy, ulcer surgery, lower intestine surgery, tobacco abuse. History of Present Illness History of Present Illness 10/01/21 Post op day two exploratory laparotomy with subtotal colectomy small bowel resection lysis of adhesions Patient seen and examined NG tube clamped Patient was initially asleep and wearing BiPAP Discussed with RN Chart reviewed 09/30/21 Patient seen and examined Chart reviewed Discussed with RN Post op day one exploratory laparotomy with subtotal colectomy small bowel resection lysis of adhesions Patient has not yet passed flatus. Patient laying in bed. NG tube in place. Dressing clean, dry, and intact. 09/29/2021 Patient seen and examined Chart reviewed Discussed with RN Patient resting in bed watching videos on his phone Patient is in no apparent distress and states he is ready to go to the OR later this afternoon 09/28/2021 Patient seen and examined bedside. AF and VSS. Planning for surgery tomorrow. Patient's chart, labs, images were reviewed and discussed with RN 09/27/2021 Plan for colonoscopy today. Patient seen on toilet after enema. Currently receiving bowel prep. Surgery and GI following. No acute events overnight. AF and VSS. Patient's chart, labs, images were reviewed and discussed with RN 09/26/21: Patient seen and examined Chart Reviewed Discussed with RN Patient requesting something to eat/drink Patient affirms that he has passed some watery stools, but denies flatus HISTORY OF PRESENT ILLNESS: The patient is a pleasant 56-year-old male who presented to the ER with abdominal pain, was noted to have a bowel obstruction. PAST MEDICAL HISTORY: Overweight, HIV, diabetes, hypertension, PUD, cholecystectomy, ulcer surgery, lower intestine surgery, tobacco abuse. Vitals/I&O Vitals/I&O: Vital Signs Date Time Temp Pulse Resp B/P (MAP) Pulse Ox O2 Delivery O2 Flow Rate FiO2 10/01/21 11:00 98.0 80 16 110/52 (71) 89 Room Air 98.0 10/01/21 09:34 3.0 I & O 09/30/21 09/30/21 10/01/21 15:00 23:00 07:00 Output Total 2000 ml Balance -2000 ml Physical Exam General: Alert, Oriented X3, Cooperative, mild distress Heart: Regular rate, No murmurs Lungs: Clear Abdomen: Normal bowel sounds, Soft, Other (Mild incisional tenderness wounds clean dry and intact NG tube with less output less bilious) Extremities: No clubbing, No edema Skin: No rashes, No significant lesion Labs Labs: Laboratory Tests Test 10/01/21 08:00 White Blood Count 7.5 x10^3/uL (4.0-11.0) Red Blood Count 3.94 x10^6/uL (4.30-5.70) Hemoglobin 11.3 g/dL (13.0-17.5) Hematocrit 34.6 % (39.0-53.0) Mean Corpuscular Volume 88 fL (79-100) Mean Corpuscular Hemoglobin 29 pg (25-35) Mean Corpuscular Hemoglobin Concent 33 g/dL (31-37) Red Cell Distribution Width 14.3 % (11.5-14.5) Platelet Count 311 x10^3/uL (140-400) Neutrophils (%) (Auto) 61 % (31-73) Lymphocytes (%) (Auto) 23 % (24-48) Monocytes (%) (Auto) 14 % (0-9) Eosinophils (%) (Auto) 2 % (0-3) Basophils (%) (Auto) 0 % (0-3) Neutrophils # (Auto) 4.6 x10^3/uL (1.8-7.7) Lymphocytes # (Auto) 1.7 x10^3/uL (1.0-4.8) Monocytes # (Auto) 1.0 x10^3/uL (0.0-1.1) Eosinophils # (Auto) 0.2 x10^3/uL (0.0-0.7) Basophils # (Auto) 0.0 x10^3/uL (0.0-0.2) Sodium Level 139 mmol/L (136-145) Potassium Level 4.1 mmol/L (3.5-5.1) Chloride Level 105 mmol/L (98-107) Carbon Dioxide Level 32 mmol/L (21-32) Anion Gap 2 (6-14) Blood Urea Nitrogen 18 mg/dL (8-26) Creatinine 0.8 mg/dL (0.7-1.3) Estimated GFR (Cockcroft-Gault) 120.1 Glucose Level 108 mg/dL (70-99) Calcium Level 7.8 mg/dL (8.5-10.1) Iron Level 9 ug/dL (65-175) Total Iron Binding Capacity 121 ug/dL (250-450) Iron Saturation 7 % (15-34) Ferritin 366 ng/mL (26-388) Vitamin B12 Level 460 pg/mL (247-911) Assessment and Plan Assessmemt and Plan Problems Medical Problems: (1) Bowel obstruction Status: Acute ASSESSMENT: Bowel obstruction Obesity HIV diabetes hypertension PUD tobacco abuse PLAN: Await oncology input d/c NG tube when okay with surgery Home meds Wound care PRN pain meds Trend labs DVT prophylaxis Full code Comment Review of Relevant I have reviewed the following items mervat (where applicable) has been applied. Medications: Current Medications Medications (Trade) Dose Ordered Sig/Edith Route PRN Reason Start Time Stop Time Status Last Admin Dose Admin Amino Acids/ Electrolytes/ Dextrose 1,000 ml @ 80 mls/hr [id number] IV 09/30/21 11:30 10/01/21 00:16 Pantoprazole Sodium (PROTONIX VIAL for IV PUSH) 40 mg DAILYAC IVP 09/30/21 12:00 10/01/21 09:34 Justifications for Admission Other Justification DARLINE HOWARD III DO Oct 01, 2021 11:25
[2021-10-01 15:00] VITALS: BP 117/68
[2021-10-01 19:00] VITALS: BP 115/62
[2021-10-01 23:00] VITALS: BP 109/67
[2021-10-02] MEDS: AA 4.25 %/CALCIUM/LYTES/D5W 1,000 ML IV SCH ×2 (00:34→11:49)
[2021-10-02] MEDS: MORPHINE SULFATE 4 MG/ML INJ. IV PRN ×8 (02:48→22:58)
[2021-10-02 03:00] VITALS: BP 103/81
[2021-10-02 05:54] LABS: BASO % 1 % (0-3); EOS # 0.3 x10^3/uL (0.0-0.7); EOS % 4 % (0-3); HEMATOCRIT 32.5 % (39.0-53.0); HEMOGLOBIN 10.8 g/dL (13.0-17.5); LYMPH # 2.4 x10^3/uL (1.0-4.8); LYMPH % 30 % (24-48); MEAN CORPUSCULAR HEMOGLOBIN 29 pg (25-35); MEAN CORPUSCULAR HGB CONC 33 g/dL (31-37); MEAN CORPUSCULAR VOLUME 89 fL (79-100); MONO # 1.1 x10^3/uL (0.0-1.1); MONO % 14 % (0-9); NEUT # 4.2 x10^3/uL (1.8-7.7); NEUT % 52 % (31-73); PLATELET COUNT 307 x10^3/uL (140-400); RED BLOOD COUNT 3.66 x10^6/uL (4.30-5.70); RED CELL DISTRIBUTION WIDTH 14.2 % (11.5-14.5); WHITE BLOOD COUNT 8.1 x10^3/uL (4.0-11.0)
[2021-10-02 06:00] LABS: CALCIUM 7.6 mg/dL (8.5-10.1); CREATININE 0.8 mg/dL (0.7-1.3); GFR 120.1; POTASSIUM 4.2 mmol/L (3.5-5.1)
[2021-10-02 07:00] VITALS: BP 111/55
[2021-10-02] MEDS: IV NORMAL SALINE 1000ML BAG 1,000 ML IV SCH (07:30)
--- NOTE | 2021-10-02 08:58 | PDOC ---
SURGICAL PROGRESS NOTE DATE: 10/02/21 TIME: 08:58 Subjective ng out,no n/v has not ambulated yet Vital Signs Vital Signs Date Time Temp Pulse Resp B/P (MAP) Pulse Ox O2 Delivery O2 Flow Rate FiO2 10/02/21 07:00 97.5 66 20 111/55 (73) 99 97.5 10/02/21 05:54 BiPAP/CPAP 10/01/21 16:12 3.0 I&O Intake and Output 10/02/21 07:00 # Voids 1 General: Alert, Cooperative Abdomen: Soft, Other (dressing dry) Labs Laboratory Tests Test 09/30/21 09:05 10/01/21 08:00 10/02/21 05:30 White Blood Count 6.6 x10^3/uL (4.0-11.0) 7.5 x10^3/uL (4.0-11.0) 8.1 x10^3/uL (4.0-11.0) Red Blood Count 4.40 x10^6/uL (4.30-5.70) 3.94 x10^6/uL (4.30-5.70) 3.66 x10^6/uL (4.30-5.70) Hemoglobin 12.8 g/dL (13.0-17.5) 11.3 g/dL (13.0-17.5) 10.8 g/dL (13.0-17.5) Hematocrit 38.6 % (39.0-53.0) 34.6 % (39.0-53.0) 32.5 % (39.0-53.0) Mean Corpuscular Volume 88 fL (79-100) 88 fL (79-100) 89 fL (79-100) Mean Corpuscular Hemoglobin 29 pg (25-35) 29 pg (25-35) 29 pg (25-35) Mean Corpuscular Hemoglobin Concent 33 g/dL (31-37) 33 g/dL (31-37) 33 g/dL (31-37) Red Cell Distribution Width 14.3 % (11.5-14.5) 14.3 % (11.5-14.5) 14.2 % (11.5-14.5) Platelet Count 320 x10^3/uL (140-400) 311 x10^3/uL (140-400) 307 x10^3/uL (140-400) Neutrophils (%) (Auto) 68 % (31-73) 61 % (31-73) 52 % (31-73) Lymphocytes (%) (Auto) 18 % (24-48) 23 % (24-48) 30 % (24-48) Monocytes (%) (Auto) 14 % (0-9) 14 % (0-9) 14 % (0-9) Eosinophils (%) (Auto) 0 % (0-3) 2 % (0-3) 4 % (0-3) Basophils (%) (Auto) 0 % (0-3) 0 % (0-3) 1 % (0-3) Neutrophils # (Auto) 4.5 x10^3/uL (1.8-7.7) 4.6 x10^3/uL (1.8-7.7) 4.2 x10^3/uL (1.8-7.7) Lymphocytes # (Auto) 1.2 x10^3/uL (1.0-4.8) 1.7 x10^3/uL (1.0-4.8) 2.4 x10^3/uL (1.0-4.8) Monocytes # (Auto) 0.9 x10^3/uL (0.0-1.1) 1.0 x10^3/uL (0.0-1.1) 1.1 x10^3/uL (0.0-1.1) Eosinophils # (Auto) 0.0 x10^3/uL (0.0-0.7) 0.2 x10^3/uL (0.0-0.7) 0.3 x10^3/uL (0.0-0.7) Basophils # (Auto) 0.0 x10^3/uL (0.0-0.2) 0.0 x10^3/uL (0.0-0.2) 0.0 x10^3/uL (0.0-0.2) Sodium Level 139 mmol/L (136-145) 142 mmol/L (136-145) Potassium Level 4.1 mmol/L (3.5-5.1) 4.2 mmol/L (3.5-5.1) Chloride Level 105 mmol/L (98-107) 106 mmol/L (98-107) Carbon Dioxide Level 32 mmol/L (21-32) 32 mmol/L (21-32) Anion Gap 2 (6-14) 4 (6-14) Blood Urea Nitrogen 18 mg/dL (8-26) 19 mg/dL (8-26) Creatinine 0.8 mg/dL (0.7-1.3) 0.8 mg/dL (0.7-1.3) Estimated GFR (Cockcroft-Gault) 120.1 120.1 Glucose Level 108 mg/dL (70-99) 91 mg/dL (70-99) Calcium Level 7.8 mg/dL (8.5-10.1) 7.6 mg/dL (8.5-10.1) Iron Level 9 ug/dL (65-175) Total Iron Binding Capacity 121 ug/dL (250-450) Iron Saturation 7 % (15-34) Ferritin 366 ng/mL (26-388) Vitamin B12 Level 460 pg/mL (247-911) Laboratory Tests Test 10/02/21 05:30 White Blood Count 8.1 x10^3/uL (4.0-11.0) Red Blood Count 3.66 x10^6/uL (4.30-5.70) Hemoglobin 10.8 g/dL (13.0-17.5) Hematocrit 32.5 % (39.0-53.0) Mean Corpuscular Volume 89 fL (79-100) Mean Corpuscular Hemoglobin 29 pg (25-35) Mean Corpuscular Hemoglobin Concent 33 g/dL (31-37) Red Cell Distribution Width 14.2 % (11.5-14.5) Platelet Count 307 x10^3/uL (140-400) Neutrophils (%) (Auto) 52 % (31-73) Lymphocytes (%) (Auto) 30 % (24-48) Monocytes (%) (Auto) 14 % (0-9) Eosinophils (%) (Auto) 4 % (0-3) Basophils (%) (Auto) 1 % (0-3) Neutrophils # (Auto) 4.2 x10^3/uL (1.8-7.7) Lymphocytes # (Auto) 2.4 x10^3/uL (1.0-4.8) Monocytes # (Auto) 1.1 x10^3/uL (0.0-1.1) Eosinophils # (Auto) 0.3 x10^3/uL (0.0-0.7) Basophils # (Auto) 0.0 x10^3/uL (0.0-0.2) Sodium Level 142 mmol/L (136-145) Potassium Level 4.2 mmol/L (3.5-5.1) Chloride Level 106 mmol/L (98-107) Carbon Dioxide Level 32 mmol/L (21-32) Anion Gap 4 (6-14) Blood Urea Nitrogen 19 mg/dL (8-26) Creatinine 0.8 mg/dL (0.7-1.3) Estimated GFR (Cockcroft-Gault) 120.1 Glucose Level 91 mg/dL (70-99) Calcium Level 7.6 mg/dL (8.5-10.1) Problem List Problems Medical Problems: (1) Bowel obstruction Status: Acute Assessment/Plan clears slowly Justicifation of Admission Dx: Justifications for Admission: Justification of Admission Dx: N/A CEZAR ARIAS APRN Oct 02, 2021 08:58
[2021-10-02] MEDS: PANTOPRAZOLE IV PUSH 40 MG VIAL. IVP SCH (09:00)
[2021-10-02 10:55] VITALS: BP 115/54
--- NOTE | 2021-10-02 11:07 | PDOC ---
[facility] PROGRESS NOTE Date of Service DOS: DATE: 10/02/21 TIME: 11:04 Chief Complaint Chief Complaint Bowel obstruction Overweight, HIV, diabetes, hypertension, PUD, cholecystectomy, ulcer surgery, lower intestine surgery, tobacco abuse. History of Present Illness History of Present Illness 10/02/21 Post op day three exploratory laparotomy with subtotal colectomy small bowel resection lysis of adhesions Patient seen and examined Chart reviewed Discussed with RN Patient resting in bed comfortably in no apparent distress NG tube removed Patient has been tolerating clears Patient affirms passing some flatus, but denies having a bowel movement post surgery 10/01/21 Post op day two exploratory laparotomy with subtotal colectomy small bowel resection lysis of adhesions Patient seen and examined NG tube clamped Patient was initially asleep and wearing BiPAP Discussed with RN Chart reviewed 09/30/21 Patient seen and examined Chart reviewed Discussed with RN Post op day one exploratory laparotomy with subtotal colectomy small bowel resection lysis of adhesions Patient has not yet passed flatus. Patient laying in bed. NG tube in place. Dressing clean, dry, and intact. 09/29/2021 Patient seen and examined Chart reviewed Discussed with RN Patient resting in bed watching videos on his phone Patient is in no apparent distress and states he is ready to go to the OR later this afternoon 09/28/2021 Patient seen and examined bedside. AF and VSS. Planning for surgery tomorrow. Patient's chart, labs, images were reviewed and discussed with RN 09/27/2021 Plan for colonoscopy today. Patient seen on toilet after enema. Currently receiving bowel prep. Surgery and GI following. No acute events overnight. AF and VSS. Patient's chart, labs, images were reviewed and discussed with RN 09/26/21: Patient seen and examined Chart Reviewed Discussed with RN Patient requesting something to eat/drink Patient affirms that he has passed some watery stools, but denies flatus HISTORY OF PRESENT ILLNESS: The patient is a pleasant 56-year-old male who presented to the ER with abdominal pain, was noted to have a bowel obstruction. PAST MEDICAL HISTORY: Overweight, HIV, diabetes, hypertension, PUD, cholecystectomy, ulcer surgery, lower intestine surgery, tobacco abuse. Vitals/I&O Vitals/I&O: Vital Signs Date Time Temp Pulse Resp B/P (MAP) Pulse Ox O2 Delivery O2 Flow Rate FiO2 10/02/21 10:55 99.0 71 115/54 (74) 97 3.0 99.0 10/02/21 09:30 Nasal Cannula 10/02/21 07:00 20 Physical Exam General: Alert, Oriented X3, Cooperative, No acute distress Heart: Regular rate, No murmurs Lungs: Clear Abdomen: Soft, Other (dressing dry) Extremities: No clubbing, No edema Skin: No rashes, No significant lesion Labs Labs: Laboratory Tests Test 10/02/21 05:30 White Blood Count 8.1 x10^3/uL (4.0-11.0) Red Blood Count 3.66 x10^6/uL (4.30-5.70) Hemoglobin 10.8 g/dL (13.0-17.5) Hematocrit 32.5 % (39.0-53.0) Mean Corpuscular Volume 89 fL (79-100) Mean Corpuscular Hemoglobin 29 pg (25-35) Mean Corpuscular Hemoglobin Concent 33 g/dL (31-37) Red Cell Distribution Width 14.2 % (11.5-14.5) Platelet Count 307 x10^3/uL (140-400) Neutrophils (%) (Auto) 52 % (31-73) Lymphocytes (%) (Auto) 30 % (24-48) Monocytes (%) (Auto) 14 % (0-9) Eosinophils (%) (Auto) 4 % (0-3) Basophils (%) (Auto) 1 % (0-3) Neutrophils # (Auto) 4.2 x10^3/uL (1.8-7.7) Lymphocytes # (Auto) 2.4 x10^3/uL (1.0-4.8) Monocytes # (Auto) 1.1 x10^3/uL (0.0-1.1) Eosinophils # (Auto) 0.3 x10^3/uL (0.0-0.7) Basophils # (Auto) 0.0 x10^3/uL (0.0-0.2) Sodium Level 142 mmol/L (136-145) Potassium Level 4.2 mmol/L (3.5-5.1) Chloride Level 106 mmol/L (98-107) Carbon Dioxide Level 32 mmol/L (21-32) Anion Gap 4 (6-14) Blood Urea Nitrogen 19 mg/dL (8-26) Creatinine 0.8 mg/dL (0.7-1.3) Estimated GFR (Cockcroft-Gault) 120.1 Glucose Level 91 mg/dL (70-99) Calcium Level 7.6 mg/dL (8.5-10.1) Assessment and Plan Assessmemt and Plan Problems Medical Problems: (1) Bowel obstruction Status: Acute ASSESSMENT: 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 Justifications for Admission Other Justification DARLINE HOWARD III DO Oct 02, 2021 11:07
[2021-10-02 14:55] VITALS: BP 113/78
[2021-10-02 19:00] VITALS: BP 141/55
[2021-10-02 23:00] VITALS: BP 138/63
[2021-10-03] MEDS: AA 4.25 %/CALCIUM/LYTES/D5W 1,000 ML IV SCH (02:31)
[2021-10-03 03:00] VITALS: BP 136/87
[2021-10-03] MEDS: MORPHINE SULFATE 4 MG/ML INJ. IV PRN ×8 (03:04→22:34)
[2021-10-03 05:56] LABS: BASO % 1 % (0-3); EOS # 0.4 x10^3/uL (0.0-0.7); EOS % 5 % (0-3); HEMATOCRIT 34.4 % (39.0-53.0); HEMOGLOBIN 11.2 g/dL (13.0-17.5); LYMPH # 2.2 x10^3/uL (1.0-4.8); LYMPH % 30 % (24-48); MEAN CORPUSCULAR HEMOGLOBIN 29 pg (25-35); MEAN CORPUSCULAR HGB CONC 33 g/dL (31-37); MEAN CORPUSCULAR VOLUME 89 fL (79-100); MONO # 1.1 x10^3/uL (0.0-1.1); MONO % 15 % (0-9); NEUT # 3.8 x10^3/uL (1.8-7.7); NEUT % 50 % (31-73); PLATELET COUNT 351 x10^3/uL (140-400); RED BLOOD COUNT 3.89 x10^6/uL (4.30-5.70); RED CELL DISTRIBUTION WIDTH 14.2 % (11.5-14.5); WHITE BLOOD COUNT 7.5 x10^3/uL (4.0-11.0)
[2021-10-03 06:10] LABS: CALCIUM 7.9 mg/dL (8.5-10.1); CREATININE 0.7 mg/dL (0.7-1.3); GFR 140.2; POTASSIUM 3.9 mmol/L (3.5-5.1)
[2021-10-03 07:00] VITALS: BP 113/58
[2021-10-03] MEDS: PANTOPRAZOLE IV PUSH 40 MG VIAL. IVP SCH (08:11)
--- NOTE | 2021-10-03 08:35 | PDOC ---
SURGICAL PROGRESS NOTE DATE: 10/03/21 TIME: 08:33 Subjective doing well + flatus ambulated yesterday Vital Signs Vital Signs Date Time Temp Pulse Resp B/P (MAP) Pulse Ox O2 Delivery O2 Flow Rate FiO2 10/03/21 08:11 16 10/03/21 07:00 98.3 64 113/58 (76) 97 Nasal Cannula 3.0 98.3 I&O Intake and Output 10/03/21 06:59 Intake Total 1000 ml Output Total 1175 ml Balance -175 ml IV Total 1000 ml Output Urine Total 1175 ml General: Alert, Oriented X3, Cooperative Abdomen: Soft, Other (dressing dry) Labs Laboratory Tests Test 10/02/21 05:30 10/03/21 05:35 White Blood Count 8.1 x10^3/uL (4.0-11.0) 7.5 x10^3/uL (4.0-11.0) Red Blood Count 3.66 x10^6/uL (4.30-5.70) 3.89 x10^6/uL (4.30-5.70) Hemoglobin 10.8 g/dL (13.0-17.5) 11.2 g/dL (13.0-17.5) Hematocrit 32.5 % (39.0-53.0) 34.4 % (39.0-53.0) Mean Corpuscular Volume 89 fL (79-100) 89 fL (79-100) Mean Corpuscular Hemoglobin 29 pg (25-35) 29 pg (25-35) Mean Corpuscular Hemoglobin Concent 33 g/dL (31-37) 33 g/dL (31-37) Red Cell Distribution Width 14.2 % (11.5-14.5) 14.2 % (11.5-14.5) Platelet Count 307 x10^3/uL (140-400) 351 x10^3/uL (140-400) Neutrophils (%) (Auto) 52 % (31-73) 50 % (31-73) Lymphocytes (%) (Auto) 30 % (24-48) 30 % (24-48) Monocytes (%) (Auto) 14 % (0-9) 15 % (0-9) Eosinophils (%) (Auto) 4 % (0-3) 5 % (0-3) Basophils (%) (Auto) 1 % (0-3) 1 % (0-3) Neutrophils # (Auto) 4.2 x10^3/uL (1.8-7.7) 3.8 x10^3/uL (1.8-7.7) Lymphocytes # (Auto) 2.4 x10^3/uL (1.0-4.8) 2.2 x10^3/uL (1.0-4.8) Monocytes # (Auto) 1.1 x10^3/uL (0.0-1.1) 1.1 x10^3/uL (0.0-1.1) Eosinophils # (Auto) 0.3 x10^3/uL (0.0-0.7) 0.4 x10^3/uL (0.0-0.7) Basophils # (Auto) 0.0 x10^3/uL (0.0-0.2) 0.0 x10^3/uL (0.0-0.2) Sodium Level 142 mmol/L (136-145) 141 mmol/L (136-145) Potassium Level 4.2 mmol/L (3.5-5.1) 3.9 mmol/L (3.5-5.1) Chloride Level 106 mmol/L (98-107) 102 mmol/L (98-107) Carbon Dioxide Level 32 mmol/L (21-32) 31 mmol/L (21-32) Anion Gap 4 (6-14) 8 (6-14) Blood Urea Nitrogen 19 mg/dL (8-26) 18 mg/dL (8-26) Creatinine 0.8 mg/dL (0.7-1.3) 0.7 mg/dL (0.7-1.3) Estimated GFR (Cockcroft-Gault) 120.1 140.2 Glucose Level 91 mg/dL (70-99) 74 mg/dL (70-99) Calcium Level 7.6 mg/dL (8.5-10.1) 7.9 mg/dL (8.5-10.1) Laboratory Tests Test 10/03/21 05:35 White Blood Count 7.5 x10^3/uL (4.0-11.0) Red Blood Count 3.89 x10^6/uL (4.30-5.70) Hemoglobin 11.2 g/dL (13.0-17.5) Hematocrit 34.4 % (39.0-53.0) Mean Corpuscular Volume 89 fL (79-100) Mean Corpuscular Hemoglobin 29 pg (25-35) Mean Corpuscular Hemoglobin Concent 33 g/dL (31-37) Red Cell Distribution Width 14.2 % (11.5-14.5) Platelet Count 351 x10^3/uL (140-400) Neutrophils (%) (Auto) 50 % (31-73) Lymphocytes (%) (Auto) 30 % (24-48) Monocytes (%) (Auto) 15 % (0-9) Eosinophils (%) (Auto) 5 % (0-3) Basophils (%) (Auto) 1 % (0-3) Neutrophils # (Auto) 3.8 x10^3/uL (1.8-7.7) Lymphocytes # (Auto) 2.2 x10^3/uL (1.0-4.8) Monocytes # (Auto) 1.1 x10^3/uL (0.0-1.1) Eosinophils # (Auto) 0.4 x10^3/uL (0.0-0.7) Basophils # (Auto) 0.0 x10^3/uL (0.0-0.2) Sodium Level 141 mmol/L (136-145) Potassium Level 3.9 mmol/L (3.5-5.1) Chloride Level 102 mmol/L (98-107) Carbon Dioxide Level 31 mmol/L (21-32) Anion Gap 8 (6-14) Blood Urea Nitrogen 18 mg/dL (8-26) Creatinine 0.7 mg/dL (0.7-1.3) Estimated GFR (Cockcroft-Gault) 140.2 Glucose Level 74 mg/dL (70-99) Calcium Level 7.9 mg/dL (8.5-10.1) Problem List Problems Medical Problems: (1) Bowel obstruction Status: Acute Assessment/Plan advance diet Justicifation of Admission Dx: Justifications for Admission: Justification of Admission Dx: N/A CEZAR ARIAS APRN Oct 03, 2021 08:35
[2021-10-03] MEDS: oxyCODONE/APAP 5/325 1 TAB TABLET PO PRN ×2 (10:53→20:28)
[2021-10-03 11:00] VITALS: BP 119/68
--- NOTE | 2021-10-03 12:44 | PDOC ---
[facility] [facility] PROGRESS NOTE Date of Service DOS: DATE: 10/03/21 TIME: 12:42 Chief Complaint Chief Complaint Bowel obstruction Overweight, HIV, diabetes, hypertension, PUD, cholecystectomy, ulcer surgery, lower intestine surgery, tobacco abuse. History of Present Illness History of Present Illness 10/03/2021 Patient seen and examined He is up in the chair talking on the phone Tolerating clear liquids Discussed with RN Chart reviewed 10/02/21 Post op day three exploratory laparotomy with subtotal colectomy small bowel resection lysis of adhesions Patient seen and examined Chart reviewed Discussed with RN Patient resting in bed comfortably in no apparent distress NG tube removed Patient has been tolerating clears Patient affirms passing some flatus, but denies having a bowel movement post surgery 10/01/21 Post op day two exploratory laparotomy with subtotal colectomy small bowel resection lysis of adhesions Patient seen and examined NG tube clamped Patient was initially asleep and wearing BiPAP Discussed with RN Chart reviewed 09/30/21 Patient seen and examined Chart reviewed Discussed with RN Post op day one exploratory laparotomy with subtotal colectomy small bowel resection lysis of adhesions Patient has not yet passed flatus. Patient laying in bed. NG tube in place. Dressing clean, dry, and intact. 09/29/2021 Patient seen and examined Chart reviewed Discussed with RN Patient resting in bed watching videos on his phone Patient is in no apparent distress and states he is ready to go to the OR later this afternoon 09/28/2021 Patient seen and examined bedside. AF and VSS. Planning for surgery tomorrow. Patient's chart, labs, images were reviewed and discussed with RN 09/27/2021 Plan for colonoscopy today. Patient seen on toilet after enema. Currently receiving bowel prep. Surgery and GI following. No acute events overnight. AF and VSS. Patient's chart, labs, images were reviewed and discussed with RN 09/26/21: Patient seen and examined Chart Reviewed Discussed with RN Patient requesting something to eat/drink Patient affirms that he has passed some watery stools, but denies flatus HISTORY OF PRESENT ILLNESS: The patient is a pleasant 56-year-old male who presented to the ER with abdominal pain, was noted to have a bowel obstruction. PAST MEDICAL HISTORY: Overweight, HIV, diabetes, hypertension, PUD, cholecystectomy, ulcer surgery, lower intestine surgery, tobacco abuse. Vitals/I&O Vitals/I&O: Vital Signs Date Time Temp Pulse Resp B/P (MAP) Pulse Ox O2 Delivery O2 Flow Rate FiO2 10/03/21 11:44 97 Nasal Cannula 10/03/21 11:00 98.1 69 18 119/68 (85) 3.0 98.1 I & O 10/02/21 10/02/21 10/03/21 15:00 23:00 07:00 Intake Total 1000 ml Output Total 325 ml 600 ml 250 ml Balance 675 ml -600 ml -250 ml Physical Exam General: Alert, Oriented X3, Cooperative Heart: Regular rate, No murmurs Lungs: Clear Abdomen: Soft, Other (dressing dry) Extremities: No clubbing, No edema Skin: No rashes, No significant lesion Labs Labs: Laboratory Tests Test 10/03/21 05:35 White Blood Count 7.5 x10^3/uL (4.0-11.0) Red Blood Count 3.89 x10^6/uL (4.30-5.70) Hemoglobin 11.2 g/dL (13.0-17.5) Hematocrit 34.4 % (39.0-53.0) Mean Corpuscular Volume 89 fL (79-100) Mean Corpuscular Hemoglobin 29 pg (25-35) Mean Corpuscular Hemoglobin Concent 33 g/dL (31-37) Red Cell Distribution Width 14.2 % (11.5-14.5) Platelet Count 351 x10^3/uL (140-400) Neutrophils (%) (Auto) 50 % (31-73) Lymphocytes (%) (Auto) 30 % (24-48) Monocytes (%) (Auto) 15 % (0-9) Eosinophils (%) (Auto) 5 % (0-3) Basophils (%) (Auto) 1 % (0-3) Neutrophils # (Auto) 3.8 x10^3/uL (1.8-7.7) Lymphocytes # (Auto) 2.2 x10^3/uL (1.0-4.8) Monocytes # (Auto) 1.1 x10^3/uL (0.0-1.1) Eosinophils # (Auto) 0.4 x10^3/uL (0.0-0.7) Basophils # (Auto) 0.0 x10^3/uL (0.0-0.2) Sodium Level 141 mmol/L (136-145) Potassium Level 3.9 mmol/L (3.5-5.1) Chloride Level 102 mmol/L (98-107) Carbon Dioxide Level 31 mmol/L (21-32) Anion Gap 8 (6-14) Blood Urea Nitrogen 18 mg/dL (8-26) Creatinine 0.7 mg/dL (0.7-1.3) Estimated GFR (Cockcroft-Gault) 140.2 Glucose Level 74 mg/dL (70-99) Calcium Level 7.9 mg/dL (8.5-10.1) Assessment and Plan Assessmemt and Plan Problems Medical Problems: (1) Bowel obstruction Status: Acute 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 Justifications for Admission Other Justification DARLINE HOWARD III DO Oct 03, 2021 12:44
[2021-10-03 15:25] VITALS: BP 134/73
[2021-10-03 19:00] VITALS: BP 140/73
[2021-10-03 23:00] VITALS: BP 135/65
[2021-10-04] MEDS: MORPHINE SULFATE 4 MG/ML INJ. IV PRN ×4 (02:44→13:31)
[2021-10-04 03:00] VITALS: BP 142/64
[2021-10-04 07:00] VITALS: BP 121/73
[2021-10-04 07:59] LABS: BASO % 1 % (0-3); EOS # 0.3 x10^3/uL (0.0-0.7); EOS % 3 % (0-3); HEMATOCRIT 36.2 % (39.0-53.0); HEMOGLOBIN 11.7 g/dL (13.0-17.5); LYMPH # 2.2 x10^3/uL (1.0-4.8); LYMPH % 24 % (24-48); MEAN CORPUSCULAR HEMOGLOBIN 29 pg (25-35); MEAN CORPUSCULAR HGB CONC 33 g/dL (31-37); MEAN CORPUSCULAR VOLUME 89 fL (79-100); MONO # 1.1 x10^3/uL (0.0-1.1); MONO % 12 % (0-9); NEUT # 5.4 x10^3/uL (1.8-7.7); NEUT % 60 % (31-73); PLATELET COUNT 398 x10^3/uL (140-400); RED BLOOD COUNT 4.09 x10^6/uL (4.30-5.70); RED CELL DISTRIBUTION WIDTH 13.8 % (11.5-14.5)
[2021-10-04] MEDS: oxyCODONE/APAP 5/325 1 TAB TABLET PO PRN (08:13)
[2021-10-04] MEDS: PANTOPRAZOLE IV PUSH 40 MG VIAL. IVP SCH (08:13)
--- NOTE | 2021-10-04 08:57 | PDOC ---
SURGICAL PROGRESS NOTE DATE: 10/04/21 TIME: 08:55 Subjective no complaints pain managed no stool, + flatus Vital Signs Vital Signs Date Time Temp Pulse Resp B/P (MAP) Pulse Ox O2 Delivery O2 Flow Rate FiO2 10/04/21 08:13 Room Air 10/04/21 07:00 98.1 67 18 121/73 (89) 94 98.1 10/03/21 22:02 3.0 I&O Intake and Output 10/04/21 07:00 Intake Total 400 ml Output Total 350 ml Balance 50 ml Intake Oral 400 ml Output Urine Total 350 ml General: Alert, Oriented X3, Cooperative Abdomen: Soft, Other (dressing dry, nd) Labs Laboratory Tests Test 10/03/21 05:35 10/04/21 07:31 White Blood Count 7.5 x10^3/uL (4.0-11.0) 9.0 x10^3/uL (4.0-11.0) Red Blood Count 3.89 x10^6/uL (4.30-5.70) 4.09 x10^6/uL (4.30-5.70) Hemoglobin 11.2 g/dL (13.0-17.5) 11.7 g/dL (13.0-17.5) Hematocrit 34.4 % (39.0-53.0) 36.2 % (39.0-53.0) Mean Corpuscular Volume 89 fL (79-100) 89 fL (79-100) Mean Corpuscular Hemoglobin 29 pg (25-35) 29 pg (25-35) Mean Corpuscular Hemoglobin Concent 33 g/dL (31-37) 33 g/dL (31-37) Red Cell Distribution Width 14.2 % (11.5-14.5) 13.8 % (11.5-14.5) Platelet Count 351 x10^3/uL (140-400) 398 x10^3/uL (140-400) Neutrophils (%) (Auto) 50 % (31-73) 60 % (31-73) Lymphocytes (%) (Auto) 30 % (24-48) 24 % (24-48) Monocytes (%) (Auto) 15 % (0-9) 12 % (0-9) Eosinophils (%) (Auto) 5 % (0-3) 3 % (0-3) Basophils (%) (Auto) 1 % (0-3) 1 % (0-3) Neutrophils # (Auto) 3.8 x10^3/uL (1.8-7.7) 5.4 x10^3/uL (1.8-7.7) Lymphocytes # (Auto) 2.2 x10^3/uL (1.0-4.8) 2.2 x10^3/uL (1.0-4.8) Monocytes # (Auto) 1.1 x10^3/uL (0.0-1.1) 1.1 x10^3/uL (0.0-1.1) Eosinophils # (Auto) 0.4 x10^3/uL (0.0-0.7) 0.3 x10^3/uL (0.0-0.7) Basophils # (Auto) 0.0 x10^3/uL (0.0-0.2) 0.0 x10^3/uL (0.0-0.2) Sodium Level 141 mmol/L (136-145) Potassium Level 3.9 mmol/L (3.5-5.1) Chloride Level 102 mmol/L (98-107) Carbon Dioxide Level 31 mmol/L (21-32) Anion Gap 8 (6-14) Blood Urea Nitrogen 18 mg/dL (8-26) Creatinine 0.7 mg/dL (0.7-1.3) Estimated GFR (Cockcroft-Gault) 140.2 Glucose Level 74 mg/dL (70-99) Calcium Level 7.9 mg/dL (8.5-10.1) Laboratory Tests Test 10/04/21 07:31 White Blood Count 9.0 x10^3/uL (4.0-11.0) Red Blood Count 4.09 x10^6/uL (4.30-5.70) Hemoglobin 11.7 g/dL (13.0-17.5) Hematocrit 36.2 % (39.0-53.0) Mean Corpuscular Volume 89 fL (79-100) Mean Corpuscular Hemoglobin 29 pg (25-35) Mean Corpuscular Hemoglobin Concent 33 g/dL (31-37) Red Cell Distribution Width 13.8 % (11.5-14.5) Platelet Count 398 x10^3/uL (140-400) Neutrophils (%) (Auto) 60 % (31-73) Lymphocytes (%) (Auto) 24 % (24-48) Monocytes (%) (Auto) 12 % (0-9) Eosinophils (%) (Auto) 3 % (0-3) Basophils (%) (Auto) 1 % (0-3) Neutrophils # (Auto) 5.4 x10^3/uL (1.8-7.7) Lymphocytes # (Auto) 2.2 x10^3/uL (1.0-4.8) Monocytes # (Auto) 1.1 x10^3/uL (0.0-1.1) Eosinophils # (Auto) 0.3 x10^3/uL (0.0-0.7) Basophils # (Auto) 0.0 x10^3/uL (0.0-0.2) Problem List Problems Medical Problems: (1) Bowel obstruction Status: Acute Assessment/Plan path pending advance diet dc soon Justicifation of Admission Dx: Justifications for Admission: Justification of Admission Dx: N/A CEZAR ARIAS APRN Oct 04, 2021 08:57
[2021-10-04 09:02] LABS: CALCIUM 8.3 mg/dL (8.5-10.1); CREATININE 0.8 mg/dL (0.7-1.3); GFR 120.1; POTASSIUM 4.2 mmol/L (3.5-5.1)
--- NOTE | 2021-10-04 10:21 | PDOC ---
Date of Service: DATE: 10/04/21 TIME: 10:19 Subjective: Subjective: Tolerating diet, passing gas. Objective: Vital Signs: Vital Signs Date Time Temp Pulse Resp B/P (MAP) Pulse Ox O2 Delivery O2 Flow Rate FiO2 10/04/21 08:59 Room Air 10/04/21 07:00 98.1 67 18 121/73 (89) 94 98.1 10/03/21 22:02 3.0 Labs: Laboratory Tests Test 10/04/21 07:31 White Blood Count 9.0 x10^3/uL Red Blood Count 4.09 x10^6/uL Hemoglobin 11.7 g/dL Hematocrit 36.2 % Mean Corpuscular Volume 89 fL Mean Corpuscular Hemoglobin 29 pg Mean Corpuscular Hemoglobin Concent 33 g/dL Red Cell Distribution Width 13.8 % Platelet Count 398 x10^3/uL Neutrophils (%) (Auto) 60 % Lymphocytes (%) (Auto) 24 % Monocytes (%) (Auto) 12 % Eosinophils (%) (Auto) 3 % Basophils (%) (Auto) 1 % Neutrophils # (Auto) 5.4 x10^3/uL Lymphocytes # (Auto) 2.2 x10^3/uL Monocytes # (Auto) 1.1 x10^3/uL Eosinophils # (Auto) 0.3 x10^3/uL Basophils # (Auto) 0.0 x10^3/uL Sodium Level 140 mmol/L Potassium Level 4.2 mmol/L Chloride Level 102 mmol/L Carbon Dioxide Level 31 mmol/L Anion Gap 7 Blood Urea Nitrogen 18 mg/dL Creatinine 0.8 mg/dL Estimated GFR (Cockcroft-Gault) 120.1 Glucose Level 91 mg/dL Calcium Level 8.3 mg/dL PE: GEN: NAD - up in chair LUNGS: CTAB HEART: RRR ABD: dressing/binder NEURO/PSYCH: A & O 3 A/P: Obstructing splenic flexure mass/suspected malignancy s/p subtotal colectomy, SBR, THOMAS -- Surgical path pending. Advancing diet per surgery. Change to PO PPI. Justicifation of Admission Dx: Justifications for Admission: Justification of Admission Dx: N/A JANEL MCNEAL Oct 04, 2021 10:21
[2021-10-04 11:00] VITALS: BP 112/69
[2021-10-04] MEDS ORDERED: OXYC1TAB15 PO (12:07)
[2021-10-04] MEDS ORDERED: PANT40TA77 PO (12:07)
--- NOTE | 2021-10-04 12:09 | PDOC ---
[facility] PROGRESS NOTE Date of Service DOS: DATE: 10/04/21 TIME: 12:08 Chief Complaint Chief Complaint Bowel obstruction Overweight, HIV, diabetes, hypertension, PUD, cholecystectomy, ulcer surgery, lower intestine surgery, tobacco abuse. History of Present Illness History of Present Illness 10/04/2021 pt seen and examuined at baseline will dc 10/03/2021 Patient seen and examined He is up in the chair talking on the phone Tolerating clear liquids Discussed with RN Chart reviewed 10/02/21 Post op day three exploratory laparotomy with subtotal colectomy small bowel resection lysis of adhesions Patient seen and examined Chart reviewed Discussed with RN Patient resting in bed comfortably in no apparent distress NG tube removed Patient has been tolerating clears Patient affirms passing some flatus, but denies having a bowel movement post surgery 10/01/21 Post op day two exploratory laparotomy with subtotal colectomy small bowel resection lysis of adhesions Patient seen and examined NG tube clamped Patient was initially asleep and wearing BiPAP Discussed with RN Chart reviewed 09/30/21 Patient seen and examined Chart reviewed Discussed with RN Post op day one exploratory laparotomy with subtotal colectomy small bowel resection lysis of adhesions Patient has not yet passed flatus. Patient laying in bed. NG tube in place. Dressing clean, dry, and intact. 09/29/2021 Patient seen and examined Chart reviewed Discussed with RN Patient resting in bed watching videos on his phone Patient is in no apparent distress and states he is ready to go to the OR later this afternoon 09/28/2021 Patient seen and examined bedside. AF and VSS. Planning for surgery tomorrow. Patient's chart, labs, images were reviewed and discussed with RN 09/27/2021 Plan for colonoscopy today. Patient seen on toilet after enema. Currently receiving bowel prep. Surgery and GI following. No acute events overnight. AF and VSS. Patient's chart, labs, images were reviewed and discussed with RN 09/26/21: Patient seen and examined Chart Reviewed Discussed with RN Patient requesting something to eat/drink Patient affirms that he has passed some watery stools, but denies flatus HISTORY OF PRESENT ILLNESS: The patient is a pleasant 56-year-old male who presented to the ER with abdominal pain, was noted to have a bowel obstruction. PAST MEDICAL HISTORY: Overweight, HIV, diabetes, hypertension, PUD, cholecystectomy, ulcer surgery, lower intestine surgery, tobacco abuse. Vitals/I&O Vitals/I&O: Vital Signs Date Time Temp Pulse Resp B/P (MAP) Pulse Ox O2 Delivery O2 Flow Rate FiO2 10/04/21 11:03 Room Air 10/04/21 11:00 97.9 62 18 112/69 (83) 96 97.9 10/03/21 22:02 3.0 I & O 10/03/21 10/03/21 10/04/21 15:00 23:00 07:00 Intake Total 400 ml Output Total 350 ml Balance 400 ml -350 ml Physical Exam General: Alert, Oriented X3, Cooperative Heart: Regular rate, No murmurs Lungs: Clear Abdomen: Soft, Other (dressing dry, nd) Extremities: No clubbing, No edema Skin: No rashes, No significant lesion Labs Labs: Laboratory Tests Test 10/04/21 07:31 White Blood Count 9.0 x10^3/uL (4.0-11.0) Red Blood Count 4.09 x10^6/uL (4.30-5.70) Hemoglobin 11.7 g/dL (13.0-17.5) Hematocrit 36.2 % (39.0-53.0) Mean Corpuscular Volume 89 fL (79-100) Mean Corpuscular Hemoglobin 29 pg (25-35) Mean Corpuscular Hemoglobin Concent 33 g/dL (31-37) Red Cell Distribution Width 13.8 % (11.5-14.5) Platelet Count 398 x10^3/uL (140-400) Neutrophils (%) (Auto) 60 % (31-73) Lymphocytes (%) (Auto) 24 % (24-48) Monocytes (%) (Auto) 12 % (0-9) Eosinophils (%) (Auto) 3 % (0-3) Basophils (%) (Auto) 1 % (0-3) Neutrophils # (Auto) 5.4 x10^3/uL (1.8-7.7) Lymphocytes # (Auto) 2.2 x10^3/uL (1.0-4.8) Monocytes # (Auto) 1.1 x10^3/uL (0.0-1.1) Eosinophils # (Auto) 0.3 x10^3/uL (0.0-0.7) Basophils # (Auto) 0.0 x10^3/uL (0.0-0.2) Sodium Level 140 mmol/L (136-145) Potassium Level 4.2 mmol/L (3.5-5.1) Chloride Level 102 mmol/L (98-107) Carbon Dioxide Level 31 mmol/L (21-32) Anion Gap 7 (6-14) Blood Urea Nitrogen 18 mg/dL (8-26) Creatinine 0.8 mg/dL (0.7-1.3) Estimated GFR (Cockcroft-Gault) 120.1 Glucose Level 91 mg/dL (70-99) Calcium Level 8.3 mg/dL (8.5-10.1) Assessment and Plan Assessmemt and Plan Problems Medical Problems: (1) Bowel obstruction Status: Acute Obstructing splenic flexure mass (likely malignant) s/p exploratory laparotomy with subtotal colectomy small bowel resection lysis of adhesions Bowel obstruction Obesity HIV diabetes hypertension PUD tobacco abuse PLAN: discharge Awaiting final path report Wound care PRN pain meds Trend labs DVT prophylaxis Full code Appreciate subspecialist input (heme-onc, GI, general surgery following) Comment Review of Relevant I have reviewed the following items mervat (where applicable) has been applied. Justifications for Admission Other Justification DARLINE HOWARD III, DO Oct 04, 2021 12:09
--- NOTE | 2021-10-04 12:33 | DS ---
DATE OF DISCHARGE: 10/04/2021 ADMITTING DIAGNOSIS: Bowel obstruction. DISCHARGE DIAGNOSES: Probable colorectal cancer, status post exploratory laparotomy with subtotal colectomy, small bowel resection, lysis of adhesions. HOSPITAL COURSE: The patient is a pleasant middle-aged male who presented with a small-bowel obstruction. He was admitted. We consulted GI and General Surgery. He was taken to the OR where the above procedure was performed. We sent the biopsy for pathology and it is showing probable colorectal cancer. We have consulted Oncology. Today, I saw and examined the patient. He is at his baseline. We will discharge. He is going to follow up with Oncology to consider chemotherapy. DISPOSITION: Home. ACTIVITY: As tolerated. DIET: Low sodium. DISCHARGE MEDICATIONS: Please see the MRAD, p.r.n. Percocet, Protonix 40 a day, atorvastatin 10 a day, lisinopril 10 a day. TOTAL TIME: 32 minutes. DANII/COOPER DR: Kofi TID: [id number]
--- NOTE | 2021-10-04 13:41 | SNU/HH DC ---
DISCHARGE WITH HOME HEALTH DISCHARGE INFORMATION: Final Diagnosis: Problems Medical Problems: (1) Bowel obstruction Status: Acute Condition on Discharge: Stable CODE STATUS: Code Status: Full HOME HEALTH: Face to Face: I certify this patient is under my care and that I, or a nurse practitioner or physician's tiler's assistant working with me, had a face to face encounter that meets the physician face to face encounter requirements with this patient on []. Medical Complications: Other Snf For: Assess & Educate Safety RN For Eval/Treatment: Yes Physical Therapy For: Evalulation/Treatment Occupational Therapy For: Evaluation/Treatment Home Health Aide For: Self-care DIRECTOR PRODUCT MANAGEMENT For: Community Resources Pt Meets Homebound Status: Unsteady balance w/ amb, POST DISCHARGE ORDERS: Activity Instructions for Disc: Activity as tolerated DIET AFTER DISCHARGE: Cardiac CERTIFICATION STATEMENT: Certification Statement: Certification Statement: Based on the above finding, I certify that this patient is confined to the home and needs intermittent shelter care, physical therapy and/or speech therapy, or continues to need occupational therapy.~ This patient is under my care, and I have initiated the establishment of the plan of care.~ This patient will be followed by myself or a community physician who will periodically review the plan of care. Home Meds Active Scripts Pantoprazole Sodium (PANTOPRAZOLE SODIUM ) 40 Mg Tablet.dr, 40 MG PO DAILYAC for . for 30 Days, #30 TAB.SR Prov:DARLINE HOWARD III DO 10/04/21 Oxycodone/Apap 5-325 (PERCOCET 5-325 MG TABLET ) 1 Each Tablet, 1 TAB PO PRN Q4HRS PRN for MILD PAIN, 1ST CHOICE for 7 Days, #14 TAB Prov:DARLINE HOWARD III DO 10/04/21 Reported Medications Lisinopril (LISINOPRIL) 10 Mg Tablet, 1 TAB PO DAILY for HTN, #30 TAB 5 Refills 09/25/21 Atorvastatin Calcium (ATORVASTATIN CALCIUM) 10 Mg Tablet, 10 MG PO HS for FOR CHOLESTEROL, #30 TAB 0 Refills 09/25/21 Darunavir/Cob/Emtri/Tenof Alaf (Symtuza [id number] mg Tab) 1 Each Tablet, 1 EACH PO DAILY for HIV, TAB 09/25/21 DARLINE HOWARD III DO Oct 04, 2021 13:41
[2021-10-04 15:00] VITALS: BP 130/69
--- NOTE | 2021-10-04 17:28 | NUR ---
Patient discharge home with [facility] today, via wheelchair, accompanied by aid. Patient is stable, IV removed, and discharge paperwork given to patient. Patient verbalized understanding of followup and discharge instruction.
[2021-10-05] MEDS ORDERED: PANTOPRAZOLE 40 MG TABLET.DR. PO SCH (07:30)
== END 2021-10-04 17:30 | disposition home health service (06) | DRG 330 ==
LOC: ER 17:41 → 4 NORTH 20:10 → ER 20:57 → 4 NORTH 22:03
PROVIDERS: ADMIT Internal Medicine; ATTEND Internal Medicine
PROC: 0DBL8ZX Excision of Transverse Colon, Via Natural or Artificial Opening Endoscopic, Diagnostic (ICD-10-PCS; 2021-09-27 14:00)
PROC: 0DB80ZZ Excision of Small Intestine, Open Approach (ICD-10-PCS; principal; 2021-09-29 13:30)
DX: C19 Malignant neoplasm of rectosigmoid junction (principal); K56.609 Unspecified intestinal obstruction, unspecified as to partial versus complete obstruction; Z68.42 Body mass index [BMI] 45.0-49.9, adult; K56.7 Ileus, unspecified; D64.9 Anemia, unspecified; E10.9 Type 1 diabetes mellitus without complications; E66.01 Morbid (severe) obesity due to excess calories; F17.210 Nicotine dependence, cigarettes, uncomplicated; I10 Essential (primary) hypertension; K27.9 Peptic ulcer, site unspecified, unspecified as acute or chronic, without hemorrhage or perforation; K66.0 Peritoneal adhesions (postprocedural) (postinfection); Z20.822 Contact with and (suspected) exposure to COVID-19; Z21 Asymptomatic human immunodeficiency virus [HIV] infection status; Z53.29 Procedure and treatment not carried out because of patient's decision for other reasons; Z79.4 Long term (current) use of insulin; Z83.3 Family history of diabetes mellitus; Z87.11 Personal history of peptic ulcer disease; Z79.899 Other long term (current) drug therapy; Z88.8 Allergy status to other drugs, medicaments and biological substances
CPT/HCPCS: 36415; 45380; 45381; 71045; 74018; 74177; 80048; 80053; 81001; 82378; 82607; 82728; 82962; 83540; 83550; 83605; 85025; 86850; 86900; 86901; 87428; 88305; 88309; 94660; 94760; 96361; 96374; A4314; A4364; A4452; A4930; A6402; C1713; C1751; C9113; J0330; J0690; J0694; J0696; J0780; J1100; J1885; J2270; J2405; J2704; J2765; J3010; J3490; J7030; J7060; J7120; J7121; Q9967; U0003; U0005; 99285-25; G0378

== ENCOUNTER 2021-10-05 18:42 | Inpatient (IN) | payer MEDICARE ==
[~2021-10-05] VITALS: Ht 172.7 cm; Wt 130.6 kg
[~2021-10-05 18:42] MED LIST: ATOR10TA60 PO; DARU1TAB3 PO; LISI10TA16 PO; OXYC1TAB15 PO; PANT40TA77 PO
[2021-10-05] MEDS ORDERED: fentaNYL PF VIAL 100 MCG/2 ML VIAL IVP ONE (22:15)
[2021-10-05] MEDS ORDERED: ONDANSETRON PF 4 MG/2 ML VIAL. IVP ONE (22:15)
[2021-10-05] MEDS ORDERED: IV NORMAL SALINE 1000ML BAG 1,000 ML IV SCH (22:15)
--- NOTE | 2021-10-05 22:42 | PHYS DOC ---
Past Medical History Past Medical History: Diabetes-Type I, HIV, Hypertension, P.U.D. Past Surgical History: Cholecystectomy, Other Additional Past Surgical Histo: ULCER SURG,LOWER INTESTINE REMOVED Smoking Status: Current Every Day Smoker Alcohol Use: Occasionally Drug Use: None General Adult EDM: Chief Complaint: NAUSEA/VOMITING/DIARRHEA HPI: HPI: Patient is a 56 year old male who presents with abdominal pain nausea and vomiting. Rating his pain a 9 out of 10. Patient did speak to Dr. Khan today to let him know that he was having some nausea and he states Dr. Khan had told him to "try to drink relax and take some Tylenol." He states the home health nurse did come over today and changed his surgical dressings. Patient was just discharged yesterday from here after having a bowel resection because of a obstructive mass. Patient has a history of smoking, hypertension, GERD, bowel obstruction, HIV, diabetes, cholecystectomy. Patient states he has had a few bowel movements since his surgery. Denies chest pain, shortness of air, fever, diarrhea, headache, dizziness, extremity swelling, focal weakness, vision change, numbness or tingling. Review of Systems: Review of Systems: Constitutional: Denies fever or chills. [] Eyes: Denies change in visual acuity. [] HENT: Denies nasal congestion or sore throat. [] Respiratory: Denies cough or shortness of breath. [] Cardiovascular: Denies chest pain or edema. [] GI: + abdominal pain, +nausea,+ vomiting, denies bloody stools or diarrhea. [] : Denies dysuria. [] Musculoskeletal: Denies back pain or joint pain. [] Integument: Denies rash. [] Neurologic: Denies headache, focal weakness or sensory changes. [] Endocrine: Denies polyuria or polydipsia. [] Lymphatic: Denies swollen glands. [] Psychiatric: Denies depression or anxiety. [] Heart Score: C/O Chest Pain: No Current Medications: Current Medications Medications (Trade) Dose Ordered Sig/Edith Start Time Stop Time Status Last Admin Dose Admin Fentanyl Citrate (Fentanyl 2ml Vial) 50 mcg 1X ONCE 10/05/21 22:15 10/05/21 22:18 DC Ondansetron HCl (Zofran) 4 mg 1X ONCE 10/05/21 22:15 10/05/21 22:18 DC Sodium Chloride 1,000 ml @ 1,000 mls/hr Q1H 10/05/21 22:15 10/05/21 23:14 Allergies: Allergies: Allergies Coded Allergies Type Severity Reaction Last Updated Verified metformin Allergy Intermediate 09/27/21 Yes Physical Exam: PE: Constitutional: Well developed, well nourished, no acute distress, non-toxic appearance. [] HENT: Normocephalic, atraumatic, bilateral external ears normal, oropharynx moist, no oral exudates, nose normal. [] Eyes: PERRLA, EOMI, conjunctiva normal, no discharge. [] Neck: Normal range of motion, no tenderness, supple, no stridor. [] Cardiovascular:Heart rate regular rhythm, no murmur [] Lungs & Thorax: Bilateral breath sounds clear to auscultation [] Abdomen: Bowel sounds normal, soft, rounded, generalized tenderness, no masses, no pulsatile masses. Abdominal binder intact. There is no bleeding through the dressings. [] Skin: Warm, dry, no erythema, no rash. [] Back: No tenderness, no CVA tenderness. [] Extremities: No tenderness, no cyanosis, no clubbing, ROM intact, no edema. [] Neurologic: Alert and oriented X 3, normal motor function, normal sensory function, no focal deficits noted. [] Psychologic: Affect normal, judgement normal, mood normal. [] Current Patient Data: Vital Signs: Vital Signs Date Time Temp Pulse Resp B/P (MAP) Pulse Ox O2 Delivery O2 Flow Rate FiO2 10/05/21 18:55 99.3 81 21 154/94 (114) 96 Room Air 99.3 EKG: EKG: [] Radiology/Procedures: Radiology/Procedures: [] Impression: [facility] [address] [place] [address] IMAGING REPORT Signed PATIENT: BEENA CORBETT ACCOUNT: [id number] : 1965 LOCATION: ER AGE: 56 SEX: M EXAM STATUS: REG ER ORD. PHYSICIAN: DENISE GORDILLO APRN REASON: pain, recent resection, vomiting PROCEDURE: CT ABD PELV W/ IV CONTRST ONLY CT OF THE ABDOMEN AND PELVIS WITH IV CONTRAST. History: Reason: pain, recent resection, vomiting Comparison:None. Procedure: Contiguous axial images of the abdomen and pelvis were performed after the administration of Optiray 300 cc of Isovue 370 IV contrast. Oral contrast: No. Findings: There is a small left effusion and there is basilar patchy opacity lines left much worse than right. There is a small loculated fluid collection in the pericolic gutter in the upper abdomen and in the paracolic gutter in the right lower quadrant. There is multiple dilated air-fluid filled loops of small bowel. Multiple suture lines seen. Liver: Unremarkable Spleen: Unremarkable Pancreas: Unremarkable Adrenal Glands: 1.8 cm adrenal adenoma on the right is incidental Kidneys: Unremarkable There is no mass or lymphadenopathy. There is no free air. There is no free fluid. The urinary bladder appears normal. Impression: 1. Small left effusion and basilar pulmonary infiltrates which could be discoid atelectasis or pneumonia. 2. Loculated fluid collections. Quadrant and right lower quadrant. This is likely mild ascites. There is no air to suggest an abscess. 3. Multiple dilated fluid filled loops small bowel could be a partial small bowel obstruction however this appears definite improvement. A transition zone is not seen. End Impression PQRS Compliance Statement: One or more of the following individualized dose reduction techniques were utilized for this examination: 1. Automated exposure control 2. Adjustment of the mA and/or kV according to patient size 3. Use of iterative reconstruction technique Electronically signed by: Beena Dhaliwal III, MD (10/06/2021 12:32 AM) [facility] DICTATED and SIGNED BY: BEENA DHALIWAL III, MD DATE: 10/06/21 [id number] Course & Med Decision Making: Course & Med Decision Making Pertinent Labs and Imaging studies reviewed. (See chart for details) See HPI. Alert and oriented x4. Ambulatory steady gait. Skin pink warm and dry. Abdominal binder in place. Abdomen is generalized tenderness and is a rounded. Bowel sounds are heard. I spoke to Dr. Mistry concerning patient and findings. He stated to admit the patient to hospitalist and start IV antibiotics. Patient is stable. He received a liter of normal saline, Zofran, fentanyl. [] Dragon Disclaimer: Dragon Disclaimer: This electronic medical record was generated, in whole or in part, using a voice recognition dictation system. Departure Departure Impression: Primary Impression: Post-operative nausea and vomiting Additional Impression: Post-operative complication Qualified Codes: K91.31 - Postprocedural partial intestinal obstruction Disposition: ADMITTED INPATIENT Admitting Physician: DARRION Condition: STABLE Referrals: NO PCP (PCP) DENISE GORDILLO APRN Oct 05, 2021 22:42
[2021-10-05 23:21] LABS: BASO # 0.1 x10^3/uL (0.0-0.2); BASO % 1 % (0-3); EOS # 0.2 x10^3/uL (0.0-0.7); EOS % 2 % (0-3); HEMOGLOBIN 11.2 g/dL (13.0-17.5); LYMPH # 2.5 x10^3/uL (1.0-4.8); LYMPH % 23 % (24-48); MEAN CORPUSCULAR HEMOGLOBIN 29 pg (25-35); MEAN CORPUSCULAR HGB CONC 33 g/dL (31-37); MEAN CORPUSCULAR VOLUME 88 fL (79-100); MONO # 1.2 x10^3/uL (0.0-1.1); MONO % 11 % (0-9); NEUT % 64 % (31-73); PLATELET COUNT 435 x10^3/uL (140-400); RED BLOOD COUNT 3.88 x10^6/uL (4.30-5.70); RED CELL DISTRIBUTION WIDTH 14.2 % (11.5-14.5)
[2021-10-05] MEDS ORDERED: IOHEXOL 300 MG/ML 100ML VIAL. ONE (23:27)
[2021-10-05 23:28] LABS: CREATININE 0.8 mg/dL (0.7-1.3); GFR 120.1
[2021-10-05] MEDS ORDERED: CONTRAST GIVEN. MC PRN (23:30)
[2021-10-05] MEDS ORDERED: IOHEXOL 300 MG/ML 100ML VIAL. IV ONE (23:30)
[2021-10-05 23:34] LABS: ALBUMIN 2.5 g/dL (3.4-5.0); ALBUMIN/GLOBULIN RATIO 0.6 (1.0-1.7); TOTAL BILIRUBIN 0.7 mg/dL (0.2-1.0); TOTAL PROTEIN 6.8 g/dL (6.4-8.2)
[2021-10-05 23:53] LABS: BILIRUBIN,URINE SMALL (NEG); CLARITY,URINE CLEAR; NITRITE,URINE NEGATIVE (NEG); PH,URINE 6.5 (<5.0-8.0); PROTEIN,URINE 30 mg/dL (NEG-TRACE)
[2021-10-06 00:14] LABS: COLOR,URINE AMBER
[2021-10-06 00:15] LABS: AMORPHOUS SEDIMENT,UR PRESENT /HPF; BACTERIA,URINE FEW /HPF (0-FEW); GRANULAR CASTS,URINE OCCASIONAL /HPF
--- NOTE | 2021-10-06 00:34 | RAD ---
CT OF THE ABDOMEN AND PELVIS WITH IV CONTRAST. History: Reason: pain, recent resection, vomiting Comparison:None. Procedure: Contiguous axial images of the abdomen and pelvis were performed after the administration of Optiray 300 cc of Isovue 370 IV contrast. Oral contrast: No. Findings: There is a small left effusion and there is basilar patchy opacity lines left much worse than right. There is a small loculated fluid collection in the pericolic gutter in the upper abdomen and in the p aracolic gutter in the right lower quadrant. There is multiple dilated air-fluid filled loops of smal l bowel. Multiple suture lines seen. Liver: Unremarkable Spleen: Unremarkable Pancreas: Unremarkable Adrenal Glands: 1.8 cm adrenal adenoma on the right is incidental Kidneys: Unremarkable There is no mass or lymphadenopathy. There is no free air. There is no free fluid. The urinary bladder appears normal. Impression: 1. Small left effusion and basilar pulmonary infiltrates which could be discoid atelectasis or pneumo anh. 2. Loculated fluid collections. Quadrant and right lower quadrant. This is likely mild ascites. There is no air to suggest an abscess. 3. Multiple dilated fluid filled loops small bowel could be a partial small bowel obstruction however this appears definite improvement. A transition zone is not seen. End Impression PQRS Compliance Statement: One or more of the following individualized dose reduction techniques were utilized for this examinat ion: 1. Automated exposure control 2. Adjustment of the mA and/or kV according to patient size 3. Use of iterative reconstruction technique Electronically signed by: Wojciech Marshall III, MD (10/06/2021 12:32 AM) [facility]
[2021-10-06] MEDS ORDERED: IV NORMAL SALINE 500ML BAG 500 ML IV ONE (00:45)
[2021-10-06] MEDS ORDERED: PIPERACILLIN/TAZOBACTAM 3.375 GM in IV NORMAL SALINE 50ML 50 ML IV ONE (01:00)
[2021-10-06] MEDS: fentaNYL PF VIAL 100 MCG/2 ML VIAL IVP PRN ×2 (01:18→02:14)
[2021-10-06 01:50] VITALS: BP 124/65
[2021-10-06] MEDS: IV NORMAL SALINE 1000ML BAG 1,000 ML IV SCH ×2 (02:14→15:23)
[2021-10-06] MEDS ORDERED: ACETAMINOPHEN 650 MG SUPP.RECT. PR PRN (02:30)
[2021-10-06] MEDS ORDERED: ONDANSETRON ODT 4 MG TAB.RAPDIS. PO PRN (02:30)
[2021-10-06] MEDS ORDERED: BISACODYL 10 MG SUPP.RECT. PR PRN (02:30)
[2021-10-06] MEDS ORDERED: hydrALAZINE 20 MG/ML VIAL. IVP PRN (02:30)
[2021-10-06] MEDS ORDERED: C.DIFF MED SCREEN BY RX. MC ONE (03:15)
[2021-10-06] MEDS: MORPHINE SULFATE 2 MG/ML INJ. IVP PRN ×7 (04:14→23:32)
[2021-10-06] MEDS: ONDANSETRON PF 4 MG/2 ML VIAL. IVP PRN ×2 (06:35→11:52)
[2021-10-06 07:00] VITALS: BP 111/60
[2021-10-06] MEDS ORDERED: PIP/TAZO PER PHARMACY MC PRN (07:30)
[2021-10-06] MEDS: PANTOPRAZOLE 40 MG TABLET.DR. PO SCH (07:30)
--- NOTE | 2021-10-06 07:59 | PDOC1 ---
History and Physical Date of Service: DOS: DATE: 10/06/21 TIME: 07:49 Chief Complaint: Chief Complain: N/V History of Present Illness: HPI: Patient is a 56-year-old -[place] male presented to the emergency room overnight due to nausea and vomiting. Patient was actually released from the hospital Monday evening after admission for bowel obstruction necessitating need for bowel resection. Patient said he was feeling good when he initially left the hospital. The next morning went to [facility] for breakfast and got two scrambled eggs with cheese. He said the smell was causing him to get very nauseous he was unable to eat much of his breakfast. 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 Shortly after this he started having the nausea and vomiting about 4-5 episodes. That point is when he then decided to present to the emergency room. In the emergency room imaging showed some fluid collections in the right side of the abdomen. Surgery was consulted recommend starting IV antibiotics and admission to hospitalist Past Medical/Surgical History: PMH/PSH: Past Medical History: Diabetes-Type I, HIV, Hypertension, P.U.D. Past Surgical History: Cholecystectomy Additional Past Surgical Histo: ULCER SURGbowel recection, colectomy Smoking Status: Current Every Day Smoker Alcohol Use: Occasionally Drug Use: None Allergies: Allergies: Coded Allergies: metformin (Verified Allergy, Intermediate, 09/27/21) Family History: Family History: Diabetes Current Medications: Current Medications Current Medications Sodium Chloride 1,000 ml @ 1,000 mls/hr Q1H IV Last administered on 10/05/21at 22:15; Start 10/05/21 at 22:15; Stop 10/05/21 at 23:14; Status DC Fentanyl Citrate (Fentanyl 2ml Vial) 50 mcg 1X ONCE IVP Last administered on 10/05/21at 22:15; Start 10/05/21 at 22:15; Stop 10/05/21 at 22:18; Status DC Ondansetron HCl (Zofran) 4 mg 1X ONCE IVP Last administered on 10/05/21at 22:15; Start 10/05/21 at 22:15; Stop 10/05/21 at 22:18; Status DC Iohexol (Omnipaque 300 Mg/ml) 75 ml 1X ONCE IV Last administered on 10/05/21at 23:26; Start 10/05/21 at 23:30; Stop 10/05/21 at 23:31; Status DC Info (CONTRAST GIVEN -- Rx MONITORING) 1 each PRN DAILY PRN MC SEE COMMENTS; Start 10/05/21 at 23:30; Stop 10/07/21 at 23:29 Iohexol (Omnipaque 300 Mg/ml) 100 ml STK-MED ONCE .ROUTE ; Start 10/05/21 at 23:27; Stop 10/05/21 at 23:27; Status DC Sodium Chloride 500 ml @ 500 mls/hr 1X ONCE IV Last administered on 10/06/21at 00:45; Start 10/06/21 at 00:45; Stop 10/06/21 at 01:44; Status DC Piperacillin Sod/ Tazobactam Sod 3.375 gm/Sodium Chloride 50 ml @ 100 mls/hr 1X ONCE IV Last administered on 10/06/21at 01:00; Start 10/06/21 at 01:00; Stop 10/06/21 at 01:29; Status DC Fentanyl Citrate (Fentanyl 2ml Vial) 50 mcg PRN Q3HRS PRN IVP PAIN Last administered on 10/06/21at 02:14; Start 10/06/21 at 01:00 Sodium Chloride 1,000 ml @ 75 mls/hr [id number] IV Last administered on 10/06/21at 02:14; Start 10/06/21 at 01:00; Stop 10/07/21 at 00:59 Ondansetron HCl (Zofran Odt) 4 mg PRN Q4HRS PRN PO NAUSEA; Start 10/06/21 at 02:30 Ondansetron HCl (Zofran) 4 mg PRN Q4HRS PRN IVP NAUSEA/VOMITING Last administered on 10/06/21at 06:35; Start 10/06/21 at 02:30 Hydralazine HCl (Apresoline Inj) 10 mg PRN Q4HRS PRN IVP ELEVATED BP, SEE COMMENTS; Start 10/06/21 at 02:30 Enoxaparin Sodium (Lovenox 40mg Syringe) 40 mg Q12HR SQ ; Start 10/06/21 at 09:00 Acetaminophen (Tylenol Supp) 650 mg PRN Q6HRS PRN TX MILD PAIN / TEMP > 100.3'F; Start 10/06/21 at 02:30 Bisacodyl (Dulcolax Supp) 10 mg PRN DAILY PRN TX CONSTIPATION; Start 10/06/21 at 02:30 Morphine Sulfate (Morphine Sulfate) 2 mg PRN Q2HR PRN IVP PAIN Last administered on 10/06/21at 06:19; Start 10/06/21 at 03:15 Pantoprazole Sodium (Protonix) 40 mg DAILYAC PO ; Start 10/06/21 at 07:30 Non-Formulary Medication (Darunavir/Cob/ Emtri/Tenof Alaf (Symtuza [phone] mg Tab)) 1 each DAILY PO ; Start 10/06/21 at 09:00; Status UNV Pharmacy Consult (C.diff Med Screen By Rx) 1 each 1X ONCE MC Last administered on 10/06/21at 03:15; Start 10/06/21 at 03:15; Stop 10/06/21 at 03:19; Status DC Piperacillin Sod/ Tazobactam Sod (Zosyn Per Pharmacy) 1 each PRN DAILY PRN MC SEE COMMENTS; Start 10/06/21 at 07:30 Atorvastatin Calcium (Lipitor) 10 mg HS PO ; Start 10/06/21 at 21:00 Lisinopril (Prinivil) 10 mg DAILY PO ; Start 10/06/21 at 09:00 Piperacillin Sod/ Tazobactam Sod 3.375 gm/Sodium Chloride 50 ml @ 100 mls/hr Q6HRS IV ; Start 10/06/21 at 08:00 Active Scripts Active Pantoprazole Sodium (Pantoprazole Sodium) 40 Mg Tablet.dr 40 Mg PO DAILYAC 30 Days Percocet 5-325 Mg Tablet (Oxycodone/Acetaminophen) 1 Each Tablet 1 Tab PO PRN Q4HRS PRN 7 Days Reported Lisinopril 10 Mg Tablet 1 Tab PO DAILY Atorvastatin Calcium 10 Mg Tablet 10 Mg PO HS Symtuza [phone] mg Tab (Darunavir/Cob/Emtri/Tenof Alaf) 1 Each Tablet 1 Each PO DAILY ROS: Review of Systems Review of System Unless noted in HPI 14 point review systems is negative Physical Exam: Vital Signs: Vital Signs Date Time Temp Pulse Resp B/P (MAP) Pulse Ox O2 Delivery O2 Flow Rate FiO2 10/06/21 06:19 BiPAP/CPAP 10/06/21 05:35 94 10/06/21 03:16 16 10/06/21 01:50 97.3 71 124/65 (84) 97.3 Physcial Exam: GEN: No apparent distress. Alert and oriented HEENT: Normal cephalic, atraumatic, external auditory canals are patent EYES: Extraocular muscles are intact, pupil are equally round and reactive to light and accommodation MUSCULOSKELETAL: Well developed , well nourished, good range of motion ENDOCRINE: No thyromegaly was palpated LYMPHATICS: No cervical chain or axillary nodes were noted HEMATOPOIETIC: No bruising NECK: Supple, no JVD, no thyromegaly was noted LUNGS: Clear to auscultation in all lung hernandez without rhonchi or wheezing HEART: RRR, S1, S2 present. Peripheral pulses intact, no obvious murmurs noted ABDOMEN: Abdomen wrapped in abdominal binder but diffusely tender EXTREMITIES: Without clubbing, cyanosis, or edema. Pedal pulses intact. NEUROLOGIC: Normal speech and tone. A&O x 3, moves all extremities, no obvious focal deficits PSYCHIATRIC: Normal affect, normal mood. Stable SKIN: No ulcerations or rashes, good skin turgor, no jaundice VASCULAR: Good capillary refill, neurovascular bundle appears to be intact Labs: Labs: Laboratory Tests Test 10/05/21 23:00 10/05/21 23:45 White Blood Count 11.0 x10^3/uL (4.0-11.0) Red Blood Count 3.88 x10^6/uL (4.30-5.70) Hemoglobin 11.2 g/dL (13.0-17.5) Hematocrit 34.0 % (39.0-53.0) Mean Corpuscular Volume 88 fL (79-100) Mean Corpuscular Hemoglobin 29 pg (25-35) Mean Corpuscular Hemoglobin Concent 33 g/dL (31-37) Red Cell Distribution Width 14.2 % (11.5-14.5) Platelet Count 435 x10^3/uL (140-400) Neutrophils (%) (Auto) 64 % (31-73) Lymphocytes (%) (Auto) 23 % (24-48) Monocytes (%) (Auto) 11 % (0-9) Eosinophils (%) (Auto) 2 % (0-3) Basophils (%) (Auto) 1 % (0-3) Neutrophils # (Auto) 7.0 x10^3/uL (1.8-7.7) Lymphocytes # (Auto) 2.5 x10^3/uL (1.0-4.8) Monocytes # (Auto) 1.2 x10^3/uL (0.0-1.1) Eosinophils # (Auto) 0.2 x10^3/uL (0.0-0.7) Basophils # (Auto) 0.1 x10^3/uL (0.0-0.2) Sodium Level 141 mmol/L (136-145) Potassium Level 4.0 mmol/L (3.5-5.1) Chloride Level 103 mmol/L (98-107) Carbon Dioxide Level 27 mmol/L (21-32) Anion Gap 11 (6-14) Blood Urea Nitrogen 14 mg/dL (8-26) Creatinine 0.8 mg/dL (0.7-1.3) Estimated GFR (Cockcroft-Gault) 120.1 BUN/Creatinine Ratio 18 (6-20) Glucose Level 92 mg/dL (70-99) Calcium Level 8.0 mg/dL (8.5-10.1) Total Bilirubin 0.7 mg/dL (0.2-1.0) Aspartate Amino Transf (AST/SGOT) 46 U/L (15-37) Alanine Aminotransferase (ALT/SGPT) 89 U/L (16-63) Alkaline Phosphatase 98 U/L (46-116) Total Protein 6.8 g/dL (6.4-8.2) Albumin 2.5 g/dL (3.4-5.0) Albumin/Globulin Ratio 0.6 (1.0-1.7) Lipase 48 U/L (73-393) Urine Collection Type Unknown Urine Color Kellee Urine Clarity Clear Urine pH 6.5 (<5.0-8.0) Urine Specific [place] >=1.030 (1.000-1.030) Urine Protein 30 mg/dL (NEG-TRACE) Urine Glucose (UA) Negative mg/dL (NEG) Urine Ketones (Stick) Trace mg/dL (NEG) Urine Blood Trace (NEG) Urine Nitrite Negative (NEG) Urine Bilirubin Small (NEG) Urine Urobilinogen Dipstick 2.0 mg/dL (0.2 mg/dL) Urine Leukocyte Esterase Trace (NEG) Urine RBC 6-10 /HPF (0-2) Urine WBC 1-4 /HPF (0-4) Urine Squamous Epithelial Cells Mod /LPF Urine Amorphous Sediment Present /HPF Urine Bacteria Few /HPF (0-FEW) Urine Granular Casts Occasional /HPF Urine Mucus Mod /LPF Laboratory Tests Test 10/05/21 23:00 10/05/21 23:45 White Blood Count 11.0 x10^3/uL (4.0-11.0) Red Blood Count 3.88 x10^6/uL (4.30-5.70) Hemoglobin 11.2 g/dL (13.0-17.5) Hematocrit 34.0 % (39.0-53.0) Mean Corpuscular Volume 88 fL (79-100) Mean Corpuscular Hemoglobin 29 pg (25-35) Mean Corpuscular Hemoglobin Concent 33 g/dL (31-37) Red Cell Distribution Width 14.2 % (11.5-14.5) Platelet Count 435 x10^3/uL (140-400) Neutrophils (%) (Auto) 64 % (31-73) Lymphocytes (%) (Auto) 23 % (24-48) Monocytes (%) (Auto) 11 % (0-9) Eosinophils (%) (Auto) 2 % (0-3) Basophils (%) (Auto) 1 % (0-3) Neutrophils # (Auto) 7.0 x10^3/uL (1.8-7.7) Lymphocytes # (Auto) 2.5 x10^3/uL (1.0-4.8) Monocytes # (Auto) 1.2 x10^3/uL (0.0-1.1) Eosinophils # (Auto) 0.2 x10^3/uL (0.0-0.7) Basophils # (Auto) 0.1 x10^3/uL (0.0-0.2) Sodium Level 141 mmol/L (136-145) Potassium Level 4.0 mmol/L (3.5-5.1) Chloride Level 103 mmol/L (98-107) Carbon Dioxide Level 27 mmol/L (21-32) Anion Gap 11 (6-14) Blood Urea Nitrogen 14 mg/dL (8-26) Creatinine 0.8 mg/dL (0.7-1.3) Estimated GFR (Cockcroft-Gault) 120.1 BUN/Creatinine Ratio 18 (6-20) Glucose Level 92 mg/dL (70-99) Calcium Level 8.0 mg/dL (8.5-10.1) Total Bilirubin 0.7 mg/dL (0.2-1.0) Aspartate Amino Transf (AST/SGOT) 46 U/L (15-37) Alanine Aminotransferase (ALT/SGPT) 89 U/L (16-63) Alkaline Phosphatase 98 U/L (46-116) Total Protein 6.8 g/dL (6.4-8.2) Albumin 2.5 g/dL (3.4-5.0) Albumin/Globulin Ratio 0.6 (1.0-1.7) Lipase 48 U/L (73-393) Urine Collection Type Unknown Urine Color Kellee Urine Clarity Clear Urine pH 6.5 (<5.0-8.0) Urine Specific [place] >=1.030 (1.000-1.030) Urine Protein 30 mg/dL (NEG-TRACE) Urine Glucose (UA) Negative mg/dL (NEG) Urine Ketones (Stick) Trace mg/dL (NEG) Urine Blood Trace (NEG) Urine Nitrite Negative (NEG) Urine Bilirubin Small (NEG) Urine Urobilinogen Dipstick 2.0 mg/dL (0.2 mg/dL) Urine Leukocyte Esterase Trace (NEG) Urine RBC 6-10 /HPF (0-2) Urine WBC 1-4 /HPF (0-4) Urine Squamous Epithelial Cells Mod /LPF Urine Amorphous Sediment Present /HPF Urine Bacteria Few /HPF (0-FEW) Urine Granular Casts Occasional /HPF Urine Mucus Mod /LPF Assessment/Plan Assessment/Plan Abdominal pain nausea vomiting in setting of recent small bowel resection colectomy and lysis of adhesions. HTN, HIV, PUD -Presented with abdominal pain nausea vomiting. Recently had bowel resection last week -Work-up in ER showing some fluid collections in the abdomen. -Surgery consulted recommend starting IV antibiotics until able to evaluate -Continue Zosyn -N.p.o. -Holding off DVT prophylaxis until seen by surgical team -Home meds resumed as indicated -Pain and nausea control 21 minutes advance care planning. Justifications for Admission Other Justification BLAIR MERRITT MD Oct 06, 2021 07:59
[2021-10-06] MEDS: PIPERACILLIN/TAZOBACTAM 3.375 GM in IV NORMAL SALINE 50ML 50 ML IV SCH ×4 (08:42→23:32)
[2021-10-06] MEDS: LISINOPRIL 10 MG TABLET PO SCH (08:43)
[2021-10-06] MEDS: [UNRECOGNIZED DRUG - OTHER] PO SCH (08:43)
[2021-10-06] MEDS: ENOXAPARIN 40 MG/0.4 ML SYRINGE. SQ SCH ×2 (08:43→20:35)
--- NOTE | 2021-10-06 10:28 | PDOC ---
Date of Service: DATE: 10/06/21 TIME: 10:20 Subjective: Subjective: Please see GI consult from 09/25/21 and following progress notes through 10/04. Back to ER w/ vomiting and admitted. "They said you all missed something." Was stooling and eating (had advance to GI soft) here on Monday, discharged. N/v after eating at U[facility]lication. Continued stooling at home (last yesterday before coming to ER), abdominal pain improved overall. Wants apple juice. Objective: Objective: On Zosyn. Vital Signs: Vital Signs Date Time Temp Pulse Resp B/P (MAP) Pulse Ox O2 Delivery O2 Flow Rate FiO2 10/06/21 09:13 Room Air 10/06/21 08:43 60 111/60 10/06/21 07:00 97.8 14 90 97.8 Labs: Laboratory Tests Test 10/05/21 23:00 10/05/21 23:45 White Blood Count 11.0 x10^3/uL Red Blood Count 3.88 x10^6/uL Hemoglobin 11.2 g/dL Hematocrit 34.0 % Mean Corpuscular Volume 88 fL Mean Corpuscular Hemoglobin 29 pg Mean Corpuscular Hemoglobin Concent 33 g/dL Red Cell Distribution Width 14.2 % Platelet Count 435 x10^3/uL Neutrophils (%) (Auto) 64 % Lymphocytes (%) (Auto) 23 % Monocytes (%) (Auto) 11 % Eosinophils (%) (Auto) 2 % Basophils (%) (Auto) 1 % Neutrophils # (Auto) 7.0 x10^3/uL Lymphocytes # (Auto) 2.5 x10^3/uL Monocytes # (Auto) 1.2 x10^3/uL Eosinophils # (Auto) 0.2 x10^3/uL Basophils # (Auto) 0.1 x10^3/uL Sodium Level 141 mmol/L Potassium Level 4.0 mmol/L Chloride Level 103 mmol/L Carbon Dioxide Level 27 mmol/L Anion Gap 11 Blood Urea Nitrogen 14 mg/dL Creatinine 0.8 mg/dL Estimated GFR (Cockcroft-Gault) 120.1 BUN/Creatinine Ratio 18 Glucose Level 92 mg/dL Calcium Level 8.0 mg/dL Total Bilirubin 0.7 mg/dL Aspartate Amino Transf (AST/SGOT) 46 U/L Alanine Aminotransferase (ALT/SGPT) 89 U/L Alkaline Phosphatase 98 U/L Total Protein 6.8 g/dL Albumin 2.5 g/dL Albumin/Globulin Ratio 0.6 Lipase 48 U/L Urine Collection Type Unknown Urine Color Kellee Urine Clarity Clear Urine pH 6.5 Urine Specific [place] >=1.030 Urine Protein 30 mg/dL Urine Glucose (UA) Negative mg/dL Urine Ketones (Stick) Trace mg/dL Urine Blood Trace Urine Nitrite Negative Urine Bilirubin Small Urine Urobilinogen Dipstick 2.0 mg/dL Urine Leukocyte Esterase Trace Urine RBC 6-10 /HPF Urine WBC 1-4 /HPF Urine Squamous Epithelial Cells Mod /LPF Urine Amorphous Sediment Present /HPF Urine Bacteria Few /HPF Urine Granular Casts Occasional /HPF Urine Mucus Mod /LPF Imaging: CT A/P 10/05 Findings: There is a small left effusion and there is basilar patchy opacity lines left much worse than right. There is a small loculated fluid collection in the pericolic gutter in the upper abdomen and in the paracolic gutter in the right lower quadrant. There is multiple dilated air-fluid filled loops of small bowel. Multiple suture lines seen. Liver: Unremarkable Spleen: Unremarkable Pancreas: Unremarkable Adrenal Glands: 1.8 cm adrenal adenoma on the right is incidental Kidneys: Unremarkable There is no mass or lymphadenopathy. There is no free air. There is no free fluid. The urinary bladder appears normal. Impression: 1. Small left effusion and basilar pulmonary infiltrates which could be discoid atelectasis or pneumonia. 2. Loculated fluid collections. Quadrant and right lower quadrant. This is likely mild ascites. There is no air to suggest an abscess. 3. Multiple dilated fluid filled loops small bowel could be a partial small bowel obstruction however this appears definite improvement. A transition zone is not seen. 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 - interval CT as above ACD/RADHA (stable), elevated LFTs (improving) -- Asking to drink - defer diet to surgery. Will review CT w/ Dr. Avery. Surgical path still pending? Justicifation of Admission Dx: Justifications for Admission: Justification of Admission Dx: N/A JANEL MCNEAL Oct 06, 2021 10:28
[2021-10-06 11:00] VITALS: BP 136/71
[2021-10-06 15:00] VITALS: BP 147/76
--- NOTE | 2021-10-06 16:04 | PDOC2 ---
CONSULT Date of Consult Date of Consult DATE: 10/06/21 TIME: 15:58 Reason for Consult Reason for Consult: Nausea vomiting Referring Physician Referring Physician: Majo Identification/Chief Complaint Chief Complaint Nausea vomiting Source Source: Chart review, Patient History of Present Illness Reason for Visit: 56-year-old male recently discharged from the hospital after having a subtotal colectomy for a splenic flexure mass, returns today with complaints of nausea vomiting over the last 24 hours he did have a bowel movement last 24 hours mostly loose. Currently is resting comfortably in bed denies any nausea now has had no more vomiting. Is requesting to have something to drink Past Medical History Cardiovascular: No pertinent hx Pulmonary: No pertinent hx GI: Peptic Ulcer disease Heme/Onc: No pertinent hx Hepatobiliary: No pertinent hx Psych: No pertinent hx Rheumatologic: No pertinent hx Infectious disease: HIV Renal/: No pertinent hx Endocrine: Diabetes Past Surgical History Past Surgical History: Cholecystectomy, Other Family History Family History: No Significant Social History ALCOHOL: occassional Drugs: None Lives: Alone Current Problem List Problem List Problems Medical Problems: (1) Post-operative complication Status: Acute (2) Post-operative nausea and vomiting Status: Acute Current Medications Current Medications Current Medications Sodium Chloride 1,000 ml @ 1,000 mls/hr Q1H IV Last administered on 10/05/21at 22:15; Start 10/05/21 at 22:15; Stop 10/05/21 at 23:14; Status DC Fentanyl Citrate (Fentanyl 2ml Vial) 50 mcg 1X ONCE IVP Last administered on 10/05/21at 22:15; Start 10/05/21 at 22:15; Stop 10/05/21 at 22:18; Status DC Ondansetron HCl (Zofran) 4 mg 1X ONCE IVP Last administered on 10/05/21at 22:15; Start 10/05/21 at 22:15; Stop 10/05/21 at 22:18; Status DC Iohexol (Omnipaque 300 Mg/ml) 75 ml 1X ONCE IV Last administered on 10/05/21at 23:26; Start 10/05/21 at 23:30; Stop 10/05/21 at 23:31; Status DC Info (CONTRAST GIVEN -- Rx MONITORING) 1 each PRN DAILY PRN MC SEE COMMENTS; Start 10/05/21 at 23:30; Stop 10/07/21 at 23:29 Iohexol (Omnipaque 300 Mg/ml) 100 ml STK-MED ONCE .ROUTE ; Start 10/05/21 at 2 3:27; Stop 10/05/21 at 23:27; Status DC Sodium Chloride 500 ml @ 500 mls/hr 1X ONCE IV Last administered on 10/06/21at 00:45; Start 10/06/21 at 00:45; Stop 10/06/21 at 01:44; Status DC Piperacillin Sod/ Tazobactam Sod 3.375 gm/Sodium Chloride 50 ml @ 100 mls/hr 1X ONCE IV Last administered on 10/06/21at 01:00; Start 10/06/21 at 01:00; Stop 10/06/21 at 01:29; Status DC Fentanyl Citrate (Fentanyl 2ml Vial) 50 mcg PRN Q3HRS PRN IVP SEVERE PAIN Last administered on 10/06/21at 02:14; Start 10/06/21 at 01:00 Sodium Chloride 1,000 ml @ 75 mls/hr [id number] IV Last administered on 10/06/21at 15:23; Start 10/06/21 at 01:00; Stop 10/07/21 at 00:59 Ondansetron HCl (Zofran Odt) 4 mg PRN Q4HRS PRN PO NAUSEA; Start 10/06/21 at 02:30 Ondansetron HCl (Zofran) 4 mg PRN Q4HRS PRN IVP NAUSEA/VOMITING Last administered on 10/06/21at 11:52; Start 10/06/21 at 02:30 Hydralazine HCl (Apresoline Inj) 10 mg PRN Q4HRS PRN IVP ELEVATED BP, SEE COMMENTS; Start 10/06/21 at 02:30 Enoxaparin Sodium (Lovenox 40mg Syringe) 40 mg Q12HR SQ Last administered on 10/06/21at 08:43; Start 10/06/21 at 09:00 Acetaminophen (Tylenol Supp) 650 mg PRN Q6HRS PRN [place] MILD PAIN / TEMP > 100.3' F; Start 10/06/21 at 02:30 Bisacodyl (Dulcolax Supp) 10 mg PRN DAILY PRN [place] CONSTIPATION; Start 10/06/21 at 02:30 Morphine Sulfate (Morphine Sulfate) 2 mg PRN Q2HR PRN IVP MODERATE PAIN Last administered on 10/06/21at 15:21; Start 10/06/21 at 03:15 Pantoprazole Sodium (Protonix) 40 mg DAILYAC PO ; Start 10/06/21 at 07:30 Non-Formulary Medication (Darunavir/Cob/ Emtri/Tenof Alaf (Symtuza [id number] mg Tab)) 1 each DAILY PO ; Start 10/06/21 at 09:00; Status UNV Pharmacy Consult (C.diff Med Screen By Rx) 1 each 1X ONCE MC Last administered on 10/06/21at 03:15; Start 10/06/21 at 03:15; Stop 10/06/21 at 03:19; Status DC Piperacillin Sod/ Tazobactam Sod (Zosyn Per Pharmacy) 1 each PRN DAILY PRN MC SEE COMMENTS; Start 10/06/21 at 07:30 Atorvastatin Calcium (Lipitor) 10 mg HS PO ; Start 10/06/21 at 21:00 Lisinopril (Prinivil) 10 mg DAILY PO ; Start 10/06/21 at 09:00 Piperacillin Sod/ Tazobactam Sod 3.375 gm/Sodium Chloride 50 ml @ 100 mls/hr Q6HRS IV Last administered on 10/06/21at 12:48; Start 10/06/21 at 08:00 Active Scripts Active Pantoprazole Sodium (Pantoprazole Sodium) 40 Mg Tablet.dr 40 Mg PO DAILYAC 3 0 Days Percocet 5-325 Mg Tablet (Oxycodone/Acetaminophen) 1 Each Tablet 1 Tab PO PRN Q4HRS PRN 7 Days Reported Lisinopril 10 Mg Tablet 1 Tab PO DAILY Atorvastatin Calcium 10 Mg Tablet 10 Mg PO HS Symtuza [id number] mg Tab (Darunavir/Cob/Emtri/Tenof Alaf) 1 Each Tablet 1 Each PO DAILY Allergies Allergies: Coded Allergies: metformin (Verified Allergy, Intermediate, 09/27/21) ROS General: No: Chills, Night Sweats, Fatigue, Malaise, Appetite, Other PSYCHOLOGICAL ROS: No: Anxiety, Behavioral Disorder, Concentration difficultie, Decreased libido, Depression, Disorientation, Hallucinations, Hostility, Irritablity, Memory difficulties, Mood Swings, Obsessive thoughts, Physical abuse, Sexual abuse, Sleep disturbances, Suicidal ideation, Other Eyes: No Blurry vision, No Decreased vision, No Double vision, No Dry eyes, No Excessive tearing, No Eye Pain, No Itchy Eyes, No Loss of vision, No Photophobia, No Scotomata, No Uses contacts, No Uses glasses, No Other HEENT: No: Heacaches, Visual Changes, Hearing change, Nasal congestion, Nasal discharge, Oral lesions, Sinus pain, Sore Throat, Epistaxis, Sneezing, Snoring, Tinnitus, Vertigo, Vocal changes, Other ALLERGY AND IMMUNOLOGY: No: Hives, Insect Bite Sensitivity, Itchy/Watery Eyes, Nasal Congestion, Post Nasal Drip, Seasonal Allergies, Other Hematological and Lymphatic: No: Bleeding Problems, Blood Clots, Blood Transfusions, Brusing, Night Sweats, Pallor, Swollen Lymph Nodes, Other ENDOCRINE: No: Breast Changes, Galactorrhea, Hair Pattern Changes, Hot Flashes, Malaise/lethargy, Mood Swings, Palpitations, Polydipsia/polyuria, Skin Changes, Temperature Intolerance, Unexpected Weight Changes, Other Breast: No New/Changing Breast Lumps, No Nipple changes, No Nipple discharge, No Other Respiratory: No: Cough, Hemoptysis, Orthopnea, Pleuritic Pain, Shortness of breath, SOB with excertion, Sputum Changes, Stridor, Tachypnea, Wheezing, Other Cardiovascular: No Chest Pain, No Palpitations, No Orthopnea, No Paroxysmal Noc. Dyspnea, No Edema, No Lt Headedness, No Other Gastrointestinal: Yes Nausea, Yes Vomiting, Yes Diarrhea Genitourinary: No Dysuria, No Frequency, No Incontinence, No Hematuria, No Retention, No Discharge, No Urgency, No Pain, No Flank Pain, No Other, No , No , No , No , No , No , No Musculoskeletal: No Gait Disturbance, No Joint Pain, No Joint Stiffness, No Joint Swelling, No Muscle Pain, No Muscular Weakness, No Pain In:, No Swelling In:, No Other Neurological: No Behavorial Changes, No Bowel/Bladder ControlChng, No Con fusion, No Dizziness, No Gait Disturbance, No Headaches, No Impaired Coord/balance, No Memory Loss, No Numbness/Tingling, No Seizures, No Speech Problems, No Tremors, No Visual Changes, No Weakness, No Other Skin: No Dry Skin, No Eczema, No Hair Changes, No Lumps, No Mole Changes, No Mottling, No Nail Changes, No Pruritus, No Rash, No Skin Lesion Changes, No O ther, No Acne Physical Exam General: Alert, Oriented X3, Cooperative, No acute distress HEENT: Atraumatic, PERRLA, EOMI Lungs: Clear to auscultation, Normal air movement Heart: Regular rate, No murmurs Abdomen: Normal bowel sounds, Soft, Other (Mild incisional tenderness wounds clean dry and intact) Extremities: No edema Skin: No significant lesion Neuro: Normal speech Psych/Mental Status: Mental status NL Vitals VITALS Vital Signs Date Time Temp Pulse Resp B/P (MAP) Pulse Ox O2 Delivery O2 Flow Rate FiO2 10/06/21 15:21 Room Air 10/06/21 11:00 98.5 62 14 136/71 (92) 90 98.5 Labs Labs Laboratory Tests Test 10/05/21 23:00 10/05/21 23:45 White Blood Count 11.0 x10^3/uL (4.0-11.0) Red Blood Count 3.88 x10^6/uL (4.30-5.70) Hemoglobin 11.2 g/dL (13.0-17.5) Hematocrit 34.0 % (39.0-53.0) Mean Corpuscular Volume 88 fL (79-100) Mean Corpuscular Hemoglobin 29 pg (25-35) Mean Corpuscular Hemoglobin Concent 33 g/dL (31-37) Red Cell Distribution Width 14.2 % (11.5-14.5) Platelet Count 435 x10^3/uL (140-400) Neutrophils (%) (Auto) 64 % (31-73) Lymphocytes (%) (Auto) 23 % (24-48) Monocytes (%) (Auto) 11 % (0-9) Eosinophils (%) (Auto) 2 % (0-3) Basophils (%) (Auto) 1 % (0-3) Neutrophils # (Auto) 7.0 x10^3/uL (1.8-7.7) Lymphocytes # (Auto) 2.5 x10^3/uL (1.0-4.8) Monocytes # (Auto) 1.2 x10^3/uL (0.0-1.1) Eosinophils # (Auto) 0.2 x10^3/uL (0.0-0.7) Basophils # (Auto) 0.1 x10^3/uL (0.0-0.2) Sodium Level 141 mmol/L (136-145) Potassium Level 4.0 mmol/L (3.5-5.1) Chloride Level 103 mmol/L (98-107) Carbon Dioxide Level 27 mmol/L (21-32) Anion Gap 11 (6-14) Blood Urea Nitrogen 14 mg/dL (8-26) Creatinine 0.8 mg/dL (0.7-1.3) Estimated GFR (Cockcroft-Gault) 120.1 BUN/Creatinine Ratio 18 (6-20) Glucose Level 92 mg/dL (70-99) Calcium Level 8.0 mg/dL (8.5-10.1) Total Bilirubin 0.7 mg/dL (0.2-1.0) Aspartate Amino Transf (AST/SGOT) 46 U/L (15-37) Alanine Aminotransferase (ALT/SGPT) 89 U/L (16-63) Alkaline Phosphatase 98 U/L (46-116) Total Protein 6.8 g/dL (6.4-8.2) Albumin 2.5 g/dL (3.4-5.0) Albumin/Globulin Ratio 0.6 (1.0-1.7) Lipase 48 U/L (73-393) Urine Collection Type Unknown Urine Color Kellee Urine Clarity Clear Urine pH 6.5 (<5.0-8.0) Urine Specific [place] >=1.030 (1.000-1.030) Urine Protein 30 mg/dL (NEG-TRACE) Urine Glucose (UA) Negative mg/dL (NEG) Urine Ketones (Stick) Trace mg/dL (NEG) Urine Blood Trace (NEG) Urine Nitrite Negative (NEG) Urine Bilirubin Small (NEG) Urine Urobilinogen Dipstick 2.0 mg/dL (0.2 mg/dL) Urine Leukocyte Esterase Trace (NEG) Urine RBC 6-10 /HPF (0-2) Urine WBC 1-4 /HPF (0-4) Urine Squamous Epithelial Cells Mod /LPF Urine Amorphous Sediment Present /HPF Urine Bacteria Few /HPF (0-FEW) Urine Granular Casts Occasional /HPF Urine Mucus Mod /LPF Laboratory Tests Test 10/05/21 23:00 10/05/21 23:45 White Blood Count 11.0 x10^3/uL (4.0-11.0) Red Blood Count 3.88 x10^6/uL (4.30-5.70) Hemoglobin 11.2 g/dL (13.0-17.5) Hematocrit 34.0 % (39.0-53.0) Mean Corpuscular Volume 88 fL (79-100) Mean Corpuscular Hemoglobin 29 pg (25-35) Mean Corpuscular Hemoglobin Concent 33 g/dL (31-37) Red Cell Distribution Width 14.2 % (11.5-14.5) Platelet Count 435 x10^3/uL (140-400) Neutrophils (%) (Auto) 64 % (31-73) Lymphocytes (%) (Auto) 23 % (24-48) Monocytes (%) (Auto) 11 % (0-9) Eosinophils (%) (Auto) 2 % (0-3) Basophils (%) (Auto) 1 % (0-3) Neutrophils # (Auto) 7.0 x10^3/uL (1.8-7.7) Lymphocytes # (Auto) 2.5 x10^3/uL (1.0-4.8) Monocytes # (Auto) 1.2 x10^3/uL (0.0-1.1) Eosinophils # (Auto) 0.2 x10^3/uL (0.0-0.7) Basophils # (Auto) 0.1 x10^3/uL (0.0-0.2) Sodium Level 141 mmol/L (136-145) Potassium Level 4.0 mmol/L (3.5-5.1) Chloride Level 103 mmol/L (98-107) Carbon Dioxide Level 27 mmol/L (21-32) Anion Gap 11 (6-14) Blood Urea Nitrogen 14 mg/dL (8-26) Creatinine 0.8 mg/dL (0.7-1.3) Estimated GFR (Cockcroft-Gault) 120.1 BUN/Creatinine Ratio 18 (6-20) Glucose Level 92 mg/dL (70-99) Calcium Level 8.0 mg/dL (8.5-10.1) Total Bilirubin 0.7 mg/dL (0.2-1.0) Aspartate Amino Transf (AST/SGOT) 46 U/L (15-37) Alanine Aminotransferase (ALT/SGPT) 89 U/L (16-63) Alkaline Phosphatase 98 U/L (46-116) Total Protein 6.8 g/dL (6.4-8.2) Albumin 2.5 g/dL (3.4-5.0) Albumin/Globulin Ratio 0.6 (1.0-1.7) Lipase 48 U/L (73-393) Urine Collection Type Unknown Urine Color Kellee Urine Clarity Clear Urine pH 6.5 (<5.0-8.0) Urine Specific [place] >=1.030 (1.000-1.030) Urine Protein 30 mg/dL (NEG-TRACE) Urine Glucose (UA) Negative mg/dL (NEG) Urine Ketones (Stick) Trace mg/dL (NEG) Urine Blood Trace (NEG) Urine Nitrite Negative (NEG) Urine Bilirubin Small (NEG) Urine Urobilinogen Dipstick 2.0 mg/dL (0.2 mg/dL) Urine Leukocyte Esterase Trace (NEG) Urine RBC 6-10 /HPF (0-2) Urine WBC 1-4 /HPF (0-4) Urine Squamous Epithelial Cells Mod /LPF Urine Amorphous Sediment Present /HPF Urine Bacteria Few /HPF (0-FEW) Urine Granular Casts Occasional /HPF Urine Mucus Mod /LPF Images Images CT scan reviewed ileus versus small bowel obstruction Assessment/Plan Assessment/Plan Nausea vomiting post colon resection likely ileus versus small bowel obstruction patient passing flatus no longer nauseated will try clear liquid diet CATARINA GUZMAN MD Oct 06, 2021 16:04
[2021-10-06 19:00] VITALS: BP 126/63
[2021-10-06] MEDS: ATORVASTATIN CALCIUM 10 MG TABLET. PO SCH (20:35)
[2021-10-06 23:28] VITALS: BP 105/67
[2021-10-07 03:21] VITALS: BP 113/59
[2021-10-07] MEDS: PIPERACILLIN/TAZOBACTAM 3.375 GM in IV NORMAL SALINE 50ML 50 ML IV SCH ×3 (05:40→16:31)
[2021-10-07] MEDS: PANTOPRAZOLE 40 MG TABLET.DR. PO SCH (06:21)
[2021-10-07] MEDS: MORPHINE SULFATE 2 MG/ML INJ. IVP PRN ×2 (06:21→08:26)
[2021-10-07 07:00] VITALS: BP 117/62
[2021-10-07 07:16] LABS: BASO # 0.1 x10^3/uL (0.0-0.2); BASO % 1 % (0-3); EOS # 0.3 x10^3/uL (0.0-0.7); EOS % 3 % (0-3); HEMATOCRIT 34.1 % (39.0-53.0); LYMPH # 2.2 x10^3/uL (1.0-4.8); LYMPH % 24 % (24-48); MEAN CORPUSCULAR HEMOGLOBIN 29 pg (25-35); MEAN CORPUSCULAR HGB CONC 32 g/dL (31-37); MEAN CORPUSCULAR VOLUME 88 fL (79-100); MONO # 0.7 x10^3/uL (0.0-1.1); MONO % 8 % (0-9); NEUT # 5.7 x10^3/uL (1.8-7.7); NEUT % 64 % (31-73); PLATELET COUNT 478 x10^3/uL (140-400); RED BLOOD COUNT 3.86 x10^6/uL (4.30-5.70); RED CELL DISTRIBUTION WIDTH 14.3 % (11.5-14.5)
[2021-10-07] MEDS: [UNRECOGNIZED DRUG - OTHER] PO SCH (07:24)
[2021-10-07 07:33] LABS: ALBUMIN 2.5 g/dL (3.4-5.0); ALBUMIN/GLOBULIN RATIO 0.7 (1.0-1.7); GFR 92.9; POTASSIUM 4.6 mmol/L (3.5-5.1); TOTAL BILIRUBIN 0.5 mg/dL (0.2-1.0)
[2021-10-07] MEDS: ENOXAPARIN 40 MG/0.4 ML SYRINGE. SQ SCH ×2 (08:05→20:15)
[2021-10-07] MEDS: LISINOPRIL 10 MG TABLET PO SCH (08:05)
--- NOTE | 2021-10-07 08:48 | RAD ---
EXAM: Abdomen, 2 views. HISTORY: Small bowel obstruction. COMPARISON: 09/24/2021 FINDINGS: Frontal upright and supine views of abdomen are obtained. There are persistent air-filled l oops of small and large bowel throughout the abdomen. There is no transition point to suggest obstruc tion. There is no free air. There are surgical clips within the abdomen. There is a small left pleura l effusion. There is bilateral basilar atelectasis or infiltrate. IMPRESSION: 1. Prominent air-filled loops of bowel throughout the abdomen. No convincing transition point is seen to suggest obstruction. 2. Small pleural effusion and bilateral lower lobe atelectasis or infiltrate. Electronically signed by: Joann Mejia MD (10/07/2021 8:46 AM) [id number]
--- NOTE | 2021-10-07 08:52 | PDOC ---
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 0852: SURGICAL PROGRESS NOTE DATE: 10/07/21 TIME: 08:51 Subjective + flatus would like cream of wheat no n/v taking morphine for pain Vital Signs Vital Signs Date Time Temp Pulse Resp B/P (MAP) Pulse Ox O2 Delivery O2 Flow Rate FiO2 10/07/21 08:05 68 117/62 10/07/21 07:27 Room Air 10/07/21 07:00 98.5 18 97 98.5 I&O Intake and Output 10/07/21 07:00 Intake Total 720 ml Output Total 300 ml Balance 420 ml Intake Oral 720 ml Output Urine Total 300 ml # Voids 2 General: Alert, Oriented X3, Cooperative Abdomen: Soft, Other (nd) Labs Laboratory Tests Test 10/05/21 23:00 10/05/21 23:45 10/07/21 06:25 White Blood Count 11.0 x10^3/uL (4.0-11.0) 9.0 x10^3/uL (4.0-11.0) Red Blood Count 3.88 x10^6/uL (4.30-5.70) 3.86 x10^6/uL (4.30-5.70) Hemoglobin 11.2 g/dL (13.0-17.5) 11.0 g/dL (13.0-17.5) Hematocrit 34.0 % (39.0-53.0) 34.1 % (39.0-53.0) Mean Corpuscular Volume 88 fL (79-100) 88 fL (79-100) Mean Corpuscular Hemoglobin 29 pg (25-35) 29 pg (25-35) Mean Corpuscular Hemoglobin Concent 33 g/dL (31-37) 32 g/dL (31-37) Red Cell Distribution Width 14.2 % (11.5-14.5) 14.3 % (11.5-14.5) Platelet Count 435 x10^3/uL (140-400) 478 x10^3/uL (140-400) Neutrophils (%) (Auto) 64 % (31-73) 64 % (31-73) Lymphocytes (%) (Auto) 23 % (24-48) 24 % (24-48) Monocytes (%) (Auto) 11 % (0-9) 8 % (0-9) Eosinophils (%) (Auto) 2 % (0-3) 3 % (0-3) Basophils (%) (Auto) 1 % (0-3) 1 % (0-3) Neutrophils # (Auto) 7.0 x10^3/uL (1.8-7.7) 5.7 x10^3/uL (1.8-7.7) Lymphocytes # (Auto) 2.5 x10^3/uL (1.0-4.8) 2.2 x10^3/uL (1.0-4.8) Monocytes # (Auto) 1.2 x10^3/uL (0.0-1.1) 0.7 x10^3/uL (0.0-1.1) Eosinophils # (Auto) 0.2 x10^3/uL (0.0-0.7) 0.3 x10^3/uL (0.0-0.7) Basophils # (Auto) 0.1 x10^3/uL (0.0-0.2) 0.1 x10^3/uL (0.0-0.2) Sodium Level 141 mmol/L (136-145) 141 mmol/L (136-145) Potassium Level 4.0 mmol/L (3.5-5.1) 4.6 mmol/L (3.5-5.1) Chloride Level 103 mmol/L (98-107) 105 mmol/L (98-107) Carbon Dioxide Level 27 mmol/L (21-32) 28 mmol/L (21-32) Anion Gap 11 (6-14) 8 (6-14) Blood Urea Nitrogen 14 mg/dL (8-26) 13 mg/dL (8-26) Creatinine 0.8 mg/dL (0.7-1.3) 1.0 mg/dL (0.7-1.3) Estimated GFR (Cockcroft-Gault) 120.1 92.9 BUN/Creatinine Ratio 18 (6-20) 13 (6-20) Glucose Level 92 mg/dL (70-99) 105 mg/dL (70-99) Calcium Level 8.0 mg/dL (8.5-10.1) 8.0 mg/dL (8.5-10.1) Total Bilirubin 0.7 mg/dL (0.2-1.0) 0.5 mg/dL (0.2-1.0) Aspartate Amino Transf (AST/SGOT) 46 U/L (15-37) 59 U/L (15-37) Alanine Aminotransferase (ALT/SGPT) 89 U/L (16-63) 138 U/L (16-63) Alkaline Phosphatase 98 U/L (46-116) 84 U/L (46-116) Total Protein 6.8 g/dL (6.4-8.2) 6.0 g/dL (6.4-8.2) Albumin 2.5 g/dL (3.4-5.0) 2.5 g/dL (3.4-5.0) Albumin/Globulin Ratio 0.6 (1.0-1.7) 0.7 (1.0-1.7) Lipase 48 U/L (73-393) Urine Collection Type Unknown Urine Color Kellee Urine Clarity Clear Urine pH 6.5 (<5.0-8.0) Urine Specific [place] >=1.030 (1.000-1.030) Urine Protein 30 mg/dL (NEG-TRACE) Urine Glucose (UA) Negative mg/dL (NEG) Urine Ketones (Stick) Trace mg/dL (NEG) Urine Blood Trace (NEG) Urine Nitrite Negative (NEG) Urine Bilirubin Small (NEG) Urine Urobilinogen Dipstick 2.0 mg/dL (0.2 mg/dL) Urine Leukocyte Esterase Trace (NEG) Urine RBC 6-10 /HPF (0-2) Urine WBC 1-4 /HPF (0-4) Urine Squamous Epithelial Cells Mod /LPF Urine Amorphous Sediment Present /HPF Urine Bacteria Few /HPF (0-FEW) Urine Granular Casts Occasional /HPF Urine Mucus Mod /LPF Laboratory Tests Test 10/07/21 06:25 White Blood Count 9.0 x10^3/uL (4.0-11.0) Red Blood Count 3.86 x10^6/uL (4.30-5.70) Hemoglobin 11.0 g/dL (13.0-17.5) Hematocrit 34.1 % (39.0-53.0) Mean Corpuscular Volume 88 fL (79-100) Mean Corpuscular Hemoglobin 29 pg (25-35) Mean Corpuscular Hemoglobin Concent 32 g/dL (31-37) Red Cell Distribution Width 14.3 % (11.5-14.5) Platelet Count 478 x10^3/uL (140-400) Neutrophils (%) (Auto) 64 % (31-73) Lymphocytes (%) (Auto) 24 % (24-48) Monocytes (%) (Auto) 8 % (0-9) Eosinophils (%) (Auto) 3 % (0-3) Basophils (%) (Auto) 1 % (0-3) Neutrophils # (Auto) 5.7 x10^3/uL (1.8-7.7) Lymphocytes # (Auto) 2.2 x10^3/uL (1.0-4.8) Monocytes # (Auto) 0.7 x10^3/uL (0.0-1.1) Eosinophils # (Auto) 0.3 x10^3/uL (0.0-0.7) Basophils # (Auto) 0.1 x10^3/uL (0.0-0.2) Sodium Level 141 mmol/L (136-145) Potassium Level 4.6 mmol/L (3.5-5.1) Chloride Level 105 mmol/L (98-107) Carbon Dioxide Level 28 mmol/L (21-32) Anion Gap 8 (6-14) Blood Urea Nitrogen 13 mg/dL (8-26) Creatinine 1.0 mg/dL (0.7-1.3) Estimated GFR (Cockcroft-Gault) 92.9 BUN/Creatinine Ratio 13 (6-20) Glucose Level 105 mg/dL (70-99) Calcium Level 8.0 mg/dL (8.5-10.1) Total Bilirubin 0.5 mg/dL (0.2-1.0) Aspartate Amino Transf (AST/SGOT) 59 U/L (15-37) Alanine Aminotransferase (ALT/SGPT) 138 U/L (16-63) Alkaline Phosphatase 84 U/L (46-116) Total Protein 6.0 g/dL (6.4-8.2) Albumin 2.5 g/dL (3.4-5.0) Albumin/Globulin Ratio 0.7 (1.0-1.7) Problem List Problems Medical Problems: (1) Post-operative complication Status: Acute (2) Post-operative nausea and vomiting Status: Acute Assessment/Plan clinically improved, trial full liquids, switch to oral meds Justicifation of Admission Dx: Justifications for Admission: Justification of Admission Dx: N/A CATARINA GUZMAN MD 10/07/21 1200: SURGICAL PROGRESS NOTE Assessment/Plan Patient states he feels much better. No nausea or vomiting. Passing flatus. Will advance diet to full liquids. Agree with Kevin's assessment and plan CEZAR ARIAS APRN Oct 07, 2021 08:52 CATARINA GUZMAN MD Oct 07, 2021 12:00
--- NOTE | 2021-10-07 10:21 | PDOC ---
Date of Service: DATE: 10/07/21 TIME: 10:17 Subjective: Subjective: I saw him earlier this morning - was eating full liquid breakfast - pain managed, no more vomiting, flatus but no stool. Says might get to go home tomorrow. Objective: Vital Signs: Vital Signs Date Time Temp Pulse Resp B/P (MAP) Pulse Ox O2 Delivery O2 Flow Rate FiO2 10/07/21 08:05 68 117/62 10/07/21 07:27 Room Air 10/07/21 07:00 98.5 18 97 98.5 Labs: Laboratory Tests Test 10/07/21 06:25 White Blood Count 9.0 x10^3/uL Red Blood Count 3.86 x10^6/uL Hemoglobin 11.0 g/dL Hematocrit 34.1 % Mean Corpuscular Volume 88 fL Mean Corpuscular Hemoglobin 29 pg Mean Corpuscular Hemoglobin Concent 32 g/dL Red Cell Distribution Width 14.3 % Platelet Count 478 x10^3/uL Neutrophils (%) (Auto) 64 % Lymphocytes (%) (Auto) 24 % Monocytes (%) (Auto) 8 % Eosinophils (%) (Auto) 3 % Basophils (%) (Auto) 1 % Neutrophils # (Auto) 5.7 x10^3/uL Lymphocytes # (Auto) 2.2 x10^3/uL Monocytes # (Auto) 0.7 x10^3/uL Eosinophils # (Auto) 0.3 x10^3/uL Basophils # (Auto) 0.1 x10^3/uL Sodium Level 141 mmol/L Potassium Level 4.6 mmol/L Chloride Level 105 mmol/L Carbon Dioxide Level 28 mmol/L Anion Gap 8 Blood Urea Nitrogen 13 mg/dL Creatinine 1.0 mg/dL Estimated GFR (Cockcroft-Gault) 92.9 BUN/Creatinine Ratio 13 Glucose Level 105 mg/dL Calcium Level 8.0 mg/dL Total Bilirubin 0.5 mg/dL Aspartate Amino Transf (AST/SGOT) 59 U/L Alanine Aminotransferase (ALT/SGPT) 138 U/L Alkaline Phosphatase 84 U/L Total Protein 6.0 g/dL Albumin 2.5 g/dL Albumin/Globulin Ratio 0.[address] path[address] Imaging: Abd X-Ray IMPRESSION: 1. Prominent air-filled loops of bowel throughout the abdomen. No convincing transition point is seen to suggest obstruction. 2. Small pleural effusion and bilateral lower lobe atelectasis or infiltrate. 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 X-ray as above. Continue per surgery. Justicifation of Admission Dx: Justifications for Admission: Justification of Admission Dx: N/A JANEL MCNEAL Oct 07, 2021 10:21
[2021-10-07 11:00] VITALS: BP 135/72
--- NOTE | 2021-10-07 11:26 | PDOC ---
[facility] PROGRESS NOTE Date of Service DOS: DATE: 10/07/21 TIME: 11:24 Chief Complaint Chief Complaint Abdominal pain nausea vomiting in setting of recent small bowel resection colectomy and lysis of adhesions. HTN, HIV, PUD -Presented with abdominal pain nausea vomiting. Recently had bowel resection last week -Work-up in ER showing some fluid collections in the abdomen. -Surgery consulted -GI consulted -Continue Zosyn --> may be able to d/c on d/c -liquid diet, adat. -Home meds resumed as indicated -Pain and nausea control History of Present Illness History of Present Illness 10/07 Patient evaluated examined at bedside. Up in bed says symptoms are improving. Advancing diet as tolerated today. Switch over to oral pain control. If continues improvement possible discharge in the next day or 2. Vitals/I&O Vitals/I&O: Vital Signs Date Time Temp Pulse Resp B/P (MAP) Pulse Ox O2 Delivery O2 Flow Rate FiO2 10/07/21 08:05 68 117/62 10/07/21 07:27 Room Air 10/07/21 07:00 98.5 18 97 98.5 I & O 10/06/21 10/06/21 10/07/21 15:00 23:00 07:00 Intake Total 480 ml 240 ml Output Total 300 ml Balance 180 ml 240 ml Physical Exam General: Alert, Oriented X3, Cooperative Heart: Regular rate, No murmurs Lungs: Clear Abdomen: Soft, Other (nd) Extremities: No edema Skin: No significant lesion Labs Labs: Laboratory Tests Test 10/07/21 06:25 White Blood Count 9.0 x10^3/uL (4.0-11.0) Red Blood Count 3.86 x10^6/uL (4.30-5.70) Hemoglobin 11.0 g/dL (13.0-17.5) Hematocrit 34.1 % (39.0-53.0) Mean Corpuscular Volume 88 fL (79-100) Mean Corpuscular Hemoglobin 29 pg (25-35) Mean Corpuscular Hemoglobin Concent 32 g/dL (31-37) Red Cell Distribution Width 14.3 % (11.5-14.5) Platelet Count 478 x10^3/uL (140-400) Neutrophils (%) (Auto) 64 % (31-73) Lymphocytes (%) (Auto) 24 % (24-48) Monocytes (%) (Auto) 8 % (0-9) Eosinophils (%) (Auto) 3 % (0-3) Basophils (%) (Auto) 1 % (0-3) Neutrophils # (Auto) 5.7 x10^3/uL (1.8-7.7) Lymphocytes # (Auto) 2.2 x10^3/uL (1.0-4.8) Monocytes # (Auto) 0.7 x10^3/uL (0.0-1.1) Eosinophils # (Auto) 0.3 x10^3/uL (0.0-0.7) Basophils # (Auto) 0.1 x10^3/uL (0.0-0.2) Sodium Level 141 mmol/L (136-145) Potassium Level 4.6 mmol/L (3.5-5.1) Chloride Level 105 mmol/L (98-107) Carbon Dioxide Level 28 mmol/L (21-32) Anion Gap 8 (6-14) Blood Urea Nitrogen 13 mg/dL (8-26) Creatinine 1.0 mg/dL (0.7-1.3) Estimated GFR (Cockcroft-Gault) 92.9 BUN/Creatinine Ratio 13 (6-20) Glucose Level 105 mg/dL (70-99) Calcium Level 8.0 mg/dL (8.5-10.1) Total Bilirubin 0.5 mg/dL (0.2-1.0) Aspartate Amino Transf (AST/SGOT) 59 U/L (15-37) Alanine Aminotransferase (ALT/SGPT) 138 U/L (16-63) Alkaline Phosphatase 84 U/L (46-116) Total Protein 6.0 g/dL (6.4-8.2) Albumin 2.5 g/dL (3.4-5.0) Albumin/Globulin Ratio 0.7 (1.0-1.7) Assessment and Plan Assessmemt and Plan Problems Medical Problems: (1) Post-operative complication Status: Acute (2) Post-operative nausea and vomiting Status: Acute Comment Review of Relevant I have reviewed the following items mervat (where applicable) has been applied. Medications: Current Medications Medications (Trade) Dose Ordered Sig/Edith Route PRN Reason Start Time Stop Time Status Last Admin Dose Admin Atorvastatin Calcium (Lipitor) 10 mg HS PO 10/06/21 21:00 10/06/21 20:35 Justifications for Admission Other Justification BLAIR MERRITT MD Oct 07, 2021 11:26
[2021-10-07] MEDS: oxyCODONE/APAP 5/325 1 TAB TABLET PO PRN ×2 (12:11→20:20)
[2021-10-07 15:00] VITALS: BP 115/73
--- NOTE | 2021-10-07 15:48 | RAD ---
Date: 10/07/2021 Exam: Fluoroscopic and ultrasound guided peripheral central venous catheter placement. Indication: Consent: The procedure was explained in its entirety to the patient or the patients designated repres entative by a member of the treatment team, including a discussion of the risks, benefits and commonl y accepted alternatives to the procedure, as well as the expected consequences of no therapy whatsoev er. Discussion of the risks included, but was not limited to, those that are most frequent and thos e that are rare but possibly severe or life-threatening, as well as the possibility of unforeseen com plications. Discussion: A timeout procedure was performed. The patient was prepped and draped using maximum sterile techniq ue, including the use of: Current guideline approved cutaneous antisepsis, a large sterile sheet to e stablish a sterile field. Additionally the braiding machine operator wore a hat, mask, sterile gloves, a sterile gown during the procedure as well as practiced acceptable hand hygiene prior to placing the line. 1% lidoc megan was administered for local anesthesia. Ultrasound evaluation demonstrates a patent right basilic vein. Reference images were saved in the edical record. The selected vein was accessed using micropuncture technique. A guidewire was advanced centrally. The PICC line was cut to length, and advanced through a peel-away sheath such that it's tip resides at the cavoatrial junction. The peel-away sheath a sheath was removed. The catheter was s ecured in place. The catheter was found to flush and aspirate normally.. Sterile dressings were appli ed. No immediate complications were identified. Fluoroscopy time: 0.3 minutes Dose area product: 9 Gycm2 Impression: Successful placement of a right upper extremity PICC line Electronically signed by: Macario Mayen MD (10/07/2021 3:45 PM) [id number]
[2021-10-07 19:00] VITALS: BP 122/59
[2021-10-07] MEDS: ATORVASTATIN CALCIUM 10 MG TABLET. PO SCH (20:15)
[2021-10-07 23:00] VITALS: BP 114/50
[2021-10-08] MEDS: PIPERACILLIN/TAZOBACTAM 3.375 GM in IV NORMAL SALINE 50ML 50 ML IV SCH ×3 (00:27→11:54)
[2021-10-08 07:00] VITALS: BP 138/71
--- NOTE | 2021-10-08 08:50 | PDOC ---
SURGICAL PROGRESS NOTE DATE: 10/08/21 TIME: 08:49 Subjective up in chair denies pain tolerating diet had stool this am, no diarrhea Vital Signs Vital Signs Date Time Temp Pulse Resp B/P (MAP) Pulse Ox O2 Delivery O2 Flow Rate FiO2 10/08/21 04:00 94 Room Air 10/08/21 03:00 18 10/07/21 23:00 98.2 58 114/50 (71) 98.2 I&O Intake and Output 10/08/21 07:00 Intake Total 940 ml Output Total 250 ml Balance 690 ml Intake Oral 940 ml Output Urine Total 250 ml General: Alert, Oriented X3, Cooperative Abdomen: Soft, Other (ND, incision intact ) Labs Laboratory Tests Test 10/07/21 06:25 White Blood Count 9.0 x10^3/uL (4.0-11.0) Red Blood Count 3.86 x10^6/uL (4.30-5.70) Hemoglobin 11.0 g/dL (13.0-17.5) Hematocrit 34.1 % (39.0-53.0) Mean Corpuscular Volume 88 fL (79-100) Mean Corpuscular Hemoglobin 29 pg (25-35) Mean Corpuscular Hemoglobin Concent 32 g/dL (31-37) Red Cell Distribution Width 14.3 % (11.5-14.5) Platelet Count 478 x10^3/uL (140-400) Neutrophils (%) (Auto) 64 % (31-73) Lymphocytes (%) (Auto) 24 % (24-48) Monocytes (%) (Auto) 8 % (0-9) Eosinophils (%) (Auto) 3 % (0-3) Basophils (%) (Auto) 1 % (0-3) Neutrophils # (Auto) 5.7 x10^3/uL (1.8-7.7) Lymphocytes # (Auto) 2.2 x10^3/uL (1.0-4.8) Monocytes # (Auto) 0.7 x10^3/uL (0.0-1.1) Eosinophils # (Auto) 0.3 x10^3/uL (0.0-0.7) Basophils # (Auto) 0.1 x10^3/uL (0.0-0.2) Sodium Level 141 mmol/L (136-145) Potassium Level 4.6 mmol/L (3.5-5.1) Chloride Level 105 mmol/L (98-107) Carbon Dioxide Level 28 mmol/L (21-32) Anion Gap 8 (6-14) Blood Urea Nitrogen 13 mg/dL (8-26) Creatinine 1.0 mg/dL (0.7-1.3) Estimated GFR (Cockcroft-Gault) 92.9 BUN/Creatinine Ratio 13 (6-20) Glucose Level 105 mg/dL (70-99) Calcium Level 8.0 mg/dL (8.5-10.1) Total Bilirubin 0.5 mg/dL (0.2-1.0) Aspartate Amino Transf (AST/SGOT) 59 U/L (15-37) Alanine Aminotransferase (ALT/SGPT) 138 U/L (16-63) Alkaline Phosphatase 84 U/L (46-116) Total Protein 6.0 g/dL (6.4-8.2) Albumin 2.5 g/dL (3.4-5.0) Albumin/Globulin Ratio 0.7 (1.0-1.7) Problem List Problems Medical Problems: (1) Post-operative complication Status: Acute (2) Post-operative nausea and vomiting Status: Acute Assessment/Plan advance diet home likely tomorrow if tolerating, should not need abx at dc Justicifation of Admission Dx: Justifications for Admission: Justification of Admission Dx: N/A CEZAR ARIAS APRN Oct 08, 2021 08:50
[2021-10-08] MEDS: PANTOPRAZOLE 40 MG TABLET.DR. PO SCH (08:59)
[2021-10-08] MEDS: LISINOPRIL 10 MG TABLET PO SCH (08:59)
[2021-10-08] MEDS: [UNRECOGNIZED DRUG - OTHER] PO SCH (09:00)
[2021-10-08] MEDS: ENOXAPARIN 40 MG/0.4 ML SYRINGE. SQ SCH (09:00)
--- NOTE | 2021-10-08 09:28 | PDOC ---
Date of Service: DATE: 10/08/21 TIME: 09:24 Subjective: Subjective: He was so hungry yesterday and the [employer] commercials on tv looked really good so his niece brought him a double cheeseburger and he ate it under the blanket. Says it was so good but he didn't want to tell the doctors. No vomiting. Stooled this morning. Hopeful to discharge today. Objective: Objective: No surg path. 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 Diet/DC per surgery. Justicifation of Admission Dx: Justifications for Admission: Justification of Admission Dx: N/A JANEL MCNEAL Oct 08, 2021 09:28
[2021-10-08 11:00] VITALS: BP 135/76
--- NOTE | 2021-10-08 11:52 | PDOC3 ---
[facility]-Discharge Summary Date of Admission: Date of Admission: Oct 06, 2021 Date of Discharge: Date of Discharge: Oct 08, 2021 Admission Diagnosis: Problems: (1) Post-operative nausea and vomiting Consults: Consults: Surgery, GI Hospital Course: Hospital Course: Chief Complaint Abdominal pain nausea vomiting in setting of recent small bowel resection colectomy and lysis of adhesions. HTN, HIV, PUD -Presented with abdominal pain nausea vomiting. Recently had bowel resection last week -Work-up in ER showing some fluid collections in the abdomen. -Surgery consulted -GI consulted -Continue Zosyn --> may be able to d/c on d/c -liquid diet, adat. -Home meds resumed as indicated -Pain and nausea control History of Present Illness History of Present Illness 10/08 Evaluated examined at bedside. Doing well with diet. If continues to do well discharge afternoon. Greater than 30 minutes spent on discharge. 18 minutes advance care planning 10/07 Patient evaluated examined at bedside. Up in bed says symptoms are improving. Advancing diet as tolerated today. Switch over to oral pain control. If continues improvement possible discharge in the next day or 2. Disposition: Disposition/Orders: D/C to Home Activity: Activity: Resume previous activity Diet: Diet: Soft, other (adat) Medications: Home Meds Active Scripts Pantoprazole Sodium (PANTOPRAZOLE SODIUM ) 40 Mg Tablet.dr, 40 MG PO DAILYAC for . for 30 Days, #30 TAB.SR Prov:CASTLENIAL K III DO 10/04/21 Oxycodone/Apap 5-325 (PERCOCET 5-325 MG TABLET ) 1 Each Tablet, 1 TAB PO PRN Q4HRS PRN for MILD PAIN, 1ST CHOICE for 7 Days, #14 TAB Prov:CASTLENIAL K III DO 10/04/21 Reported Medications Lisinopril (LISINOPRIL) 10 Mg Tablet, 1 TAB PO DAILY for HTN, #30 TAB 5 Refills 09/25/21 Atorvastatin Calcium (ATORVASTATIN CALCIUM) 10 Mg Tablet, 10 MG PO HS for FOR CHOLESTEROL, #30 TAB 0 Refills 09/25/21 Darunavir/Cob/Emtri/Tenof Alaf (Symtuza 064-430-571-10 mg Tab) 1 Each Tablet, 1 EACH PO DAILY for HIV, TAB 09/25/21 Scheduled Atorvastatin Calcium (Atorvastatin Calcium), 10 MG PO HS, (Reported) Darunavir/Cob/Emtri/Tenof Alaf (Symtuza 346-913-033-10 mg Tab), 1 EACH PO DAILY, (Reported) Lisinopril (Lisinopril), 1 TAB PO DAILY, (Reported) Pantoprazole Sodium (Pantoprazole Sodium ), 40 MG PO DAILYAC Scheduled PRN Oxycodone/Apap 5-325 (Percocet 5-325 Mg Tablet ), 1 TAB PO PRN Q4HRS PRN for MILD PAIN, 1ST CHOICE Justicifation of Admission Dx: Justifications for Admission: Justification of Admission Dx: N/A BLAIR MERRITT MD Oct 08, 2021 11:52
--- NOTE | 2021-10-08 12:53 | NUR ---
pt discharged home with self care. Instructions reviewed with patient, verbalized understanding. no other questions. pt transported off unit via wheelchair with family member and all belongings.
== END 2021-10-08 12:55 | disposition home or self-care (01) | DRG 392 ==
LOC: ER 18:42 → 4 NORTH 10-06 01:03
PROVIDERS: ADMIT Internal Medicine; ATTEND Internal Medicine
PROC: 02HV33Z Insertion of Infusion Device into Superior Vena Cava, Percutaneous Approach (ICD-10-PCS; principal; 2021-10-07)
PROC: B5181ZA Fluoroscopy of Superior Vena Cava using Low Osmolar Contrast, Guidance (ICD-10-PCS; 2021-10-07)
PROC: B548ZZA Ultrasonography of Superior Vena Cava, Guidance (ICD-10-PCS; 2021-10-07)
DX: K91.0 Vomiting following gastrointestinal surgery (principal); E10.9 Type 1 diabetes mellitus without complications; I10 Essential (primary) hypertension; K27.9 Peptic ulcer, site unspecified, unspecified as acute or chronic, without hemorrhage or perforation; K21.9 Gastro-esophageal reflux disease without esophagitis; Z21 Asymptomatic human immunodeficiency virus [HIV] infection status; Z79.4 Long term (current) use of insulin; Z83.3 Family history of diabetes mellitus; Z87.11 Personal history of peptic ulcer disease; Z87.891 Personal history of nicotine dependence; Z88.8 Allergy status to other drugs, medicaments and biological substances
CPT/HCPCS: 36415; 36573; 74021; 74177; 80053; 81001; 83690; 85025; 87086; 94660; 94760; 96361; 96365; 96375; C1751; C1892; J1650; J2270; J2405; J2543; J3010; J7030; J7040; Q9967; 99285-25; G0378